=== PATIENT | male | born 1945 | race Caucasian/White ===

== ENCOUNTER 2020-09-07 12:55 | Emergency (ER) | payer MEDICARE, OTHER, SELFPAY ==
[2020-09-07 13:25] VITALS: BP 199/80; PULSE 58; RESP 16; TEMP 36.7; O2SAT 97; BMI 25.8
--- NOTE | 2020-09-07 13:51 | XR_ITS ---
WS: [id number] XR chest 1V portable [id number] REASON FOR EXAM: shortness of breath FINDINGS: Compared to the previous examination of 10/05/2019 interstitial densities in the lung bases appear so mewhat more prominent. This may be due to the difference in inspiratory effort. No other interval change is identified compared to the previous study. XR/XR chest 1V portable [id number] IMPRESSION: Equivocal findings in the lung bases as described above. Follow-up chest x-ray may be warranted.
[2020-09-07] MEDS: albuterol 8 gm MDI 2 PUFF INHALATION (14:17)
[2020-09-07 14:18] VITALS: PULSE 60; RESP 18; O2SAT 96
[2020-09-07 14:19] VITALS: PULSE 68
[2020-09-07 14:23] LABS: Basophils % 0.4 %; Eosinophils # 0.6 10^3/uL (0.0-0.8); Hematocrit 40.4 % (42.0-52.0); Hemoglobin 13.1 g/dL (11.7-16.6); Lymphocytes # 1.2 10^3/uL (0.8-4.8); Lymphocytes % 17.6 %; Mean Corpuscular HGB Conc 32.4 g/dL (30.0-36.0); Mean Corpuscular Hemoglobin 29.9 pg (28.0-34.0); Mean Corpuscular Volume 92.2 fL (80-94); Mean Platelet Volume 9.6 fL (7.4-10.4); Monocytes # 0.6 10^3/uL (0.2-0.9); Neutrophils # 4.45 10^3/uL (1.8-7.7); Neutrophils % 64.9 %; Nucleated Red Blood Cells % 0 %; Platelet Count 179 10^3/cmm (130-400); Red Blood Count 4.38 10^6/uL (4.1-5.3); Red Cell Distribution Width 12.7 % (12.1-15.1); White Blood Count 6.9 10^3/uL (4.0-10.0)
[2020-09-07 14:24] LABS: ABG PH Result 7.42 (7.35-7.45); Base Excess ABG 0.8 mmol/L (-2.0-2.0); Blood Gas Allen Test Pos; Blood Gas Operator Identificat CAK; Blood Gas Sample Site Radial, left; Blood Gas Sample Type Arterial; HCO3 ABG 25.3 mmol/L (22-26); Oxygen Device ROOM AIR; PO2 ABG 90.5 mmHg (80.0-100.0)
--- NOTE | 2020-09-07 14:29 | ED_ITS ---
HPI - SOB/Dyspnea General: Chief Complaint: Shortness of Breath/Dyspnea Stated Complaint: COPD Time Seen by Provider: 09/07/20 13:48 History of Present Illness: HPI Narrative: 75-year-old male presents emergency room complaining of chest pain for the last 2 days. He has been also having shortness of breath with this. He denies any fever sweats chills he has usual baseline cough from his COPD with no change in sputum production quantity or quality. Does have a known history of coronary artery disease. He does not have any radiation of pain to the neck or arms but into the back. He has not really taken anything for it. He denies any abdominal pain denies any dysuria urgency or frequency no flulike symptoms. He has not noticed anything that exacerbates or relieves it. MD elicited complaint: shortness of breath and chest pain Pertinent past history: COPD and other (CAD) Onset (ago): day(s) (2) Timing: constant Severity: moderate Exacerbating factors: nothing Relieving factors: nothing Associated symptoms: Reports chest pain (Radiating into the back); Deny abdominal pain, fever(s), nausea, orthopnea or vomiting Treatment prior to arrival: none Review of Systems Const: Denies: fever(s), chills, body aches, change in appetite, fatigue or malaise ENMT: Denies: throat pain, ear or mastoid pain, nasal discharge or nasal congestion Card: Reports: chest pain (Radiating into the back) and dyspnea on exertion; Denies: edema or orthopnea Resp: Denies: dyspnea, productive cough or non-productive cough GI: Denies: abdominal pain, nausea, vomiting, hematemesis, coffee ground emesis, diarrhea, constipation, bloating, hematochezia or melena : Denies: flank pain, dysuria, urinary frequency or urinary urgency Skin/Breast: Denies: rash or pruritus PFSH ED PFSH: Medical History (Updated 09/07/20 @ 14:36 by Joshua Chavarria DO) Coronary artery disease Surgical History (Updated 09/07/20 @ 14:36 by Joshua Chavarria DO) S/P PTCA (percutaneous transluminal coronary angioplasty) Physical Exam Const: COMMON NORMALS: no acute distress GENERAL APPEARANCE: cooperative and comfortable ORIENTATION/CONSCIOUSNESS: Yes awake, Yes oriented to person, Yes oriented to place and Yes oriented to time HENMT: COMMON NORMALS: normocephalic, atraumatic and hearing grossly normal bilaterally HEAD & SCALP: normocephalic and atraumatic Eye: COMMON NORMALS: Equal, round and reactive pupils present, EOMs intact bilaterally, conjunctivae normal and no scleral icterus CONJUNCTIVA: Yes conjunctivae normal PUPIL: Yes Equal, round and reactive pupils present Resp: AUSCULTATION: rhonchi and wheezes Cardio: COMMON NORMALS: regular rate and No murmurs present (Cardio) RATE: regular rate HEART SOUNDS: Murmur heart sound present GI: COMMON NORMALS: Soft to palpation and No hepatosplenomegaly present AUSCULTATION: Yes normoactive bowel sounds PALPATION: Yes Soft to palpation, No Tenderness to palpation present (GI), No Guarding due to palpation present (GI) and Yes No hepatosplenomegaly present Extremity: COMMON NORMALS: normal to inspection, capillary refill normal, no clubbing, cyanosis or edema, no calf tenderness and no pedal edema Neuro: SENSORIUM/ORIENTATION: Yes oriented to person, Yes oriented to place and Yes oriented to time Skin: COMMON NORMALS: no rashes or lesions noted GENERAL SKIN EXAM: no rashes or lesions noted Course Vital Signs: Vital signs: Vital Signs Temperature 98.1 F 09/07/20 13:25 Pulse Rate 68 09/07/20 14:19 Respiratory Rate 18 09/07/20 14:18 Blood Pressure 199/80 09/07/20 13:25 Pulse Oximetry 96 09/07/20 14:18 MDM - SOB/Dyspnea MDM Narrative: Medical decision making narrative: During course of physical exam patient became angry because we are doing an abdominal exam on him. Advised him that all patients come to the emergency room receive a full physical exam. He states he is here for his breathing on his abdomen and did not want to be further examined over seen and wanted to leave AMA just attempted to discourage him to allow us to do further evaluation to make sure he did not have a heart issue or just is concerning a dissecting aneurysm patient refuses to have any further evaluation and insisted on leaving. He was advised that he can return at any point we would happily reevaluate and complete the work-up. Lab Data: Labs: Lab Results 09/07/20 09/07/20 Range/Units 14:08 14:12 WBC 6.9 (4.0-10.0) 10^3/ uL RBC 4.38 (4.1-5.3) 10^6/u L Hgb 13.1 (11.7-16.6) g/dL Hct 40.4 L (42.0-52.0) % MCV 92.2 (80-94) fL MCH 29.9 (28.0-34.0) pg MCHC 32.4 (30.0-36.0) g/dL RDW 12.7 (12.1-15.1) % Plt Count 179 (130-400) 10^3/c mm MPV 9.6 (7.4-10.4) fL Neut % (Auto) 64.9 % Lymph % (Auto) 17.6 % [place] % (Auto) 8.0 % Eos % (Auto) 9.0 % Baso % (Auto) 0.4 % Neut # (Auto) 4.45 (1.8-7.7) 10^3/u L Lymph # (Auto) 1.2 (0.8-4.8) 10^3/u L [place] # (Auto) 0.6 (0.2-0.9) 10^3/u L Eos # (Auto) 0.6 (0.0-0.8) 10^3/u L Baso # (Auto) 0.0 (0.0-0.1) 10^3/u L Nucleated RBC % (a uto) 0 % Nucleated RBCs # 0.0 /100WBC Specimen Type Arterial Sample Site Radial, left ABG pH 7.42 (7.35-7.45) ABG pCO2 39.0 (35-45) mmHg ABG pO2 90.5 (80.0-100.0) mmH g ABG HCO3 25.3 (22-26) mmol/L ABG Base Excess 0.8 (-2.0-2.0) mmol/ L Pio Test Pos Hematocrit 43.0 (42-52) % O2 Delivery Device Room air FiO2 0.0 % 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 ID Cak Discharge Plan Discharge Patient Disposition: Left Against Medical Advice Clinical Impression: Dyspnea, Back pain Condition: Stable Prescriptions: No Action gabapentin 600 mg tablet 1,200 mg PO BEDTIME RF: 0 paroxetine HCl 10 mg tablet 10 mg PO DAILY RF: 0 carvedilol 12.5 mg tablet 12.5 mg PO BID RF: 0 tizanidine 4 mg tablet 4 mg PO BEDTIME RF: 0 clopidogrel 75 mg tablet 75 mg PO DAILY RF: 0 simvastatin 20 mg tablet 20 mg PO DAILY RF: 0 iron 325 mg (65 mg iron) Tablet 325 mg PO DAILY RF: 0 omeprazole 20 mg capsule,delayed release(DR/EC) 20 mg PO DAILY RF: 0 magnesium 250 mg Tablet 500 mg PO DAILY RF: 0 aspirin 81 mg Tablet 81 mg PO DAILY RF: 0 Ventolin HFA 90 mcg/actuation HFA aerosol inhaler 2 inh INHALATION Q6H PRN (Reason: Shortness Of Breath) RF: 0 Myrbetriq 50 mg tablet extended release 24 hr 50 mg PO DAILY RF: 0 Coding Level of Care Code ED [employer] Guid[employer] Counselor for [place] Sanderson
[2020-09-07 14:35] VITALS: BP 212/99; PULSE 60; O2SAT 98
[2020-09-07 14:43] LABS: Fibrinogen 292 mg/dL (174-498)
[2020-09-07 14:51] LABS: Alanine Aminotransferase 18 U/L (0-41); Albumin Level 4.7 g/dL (3.5-5.2); Alkaline Phosphatase 87 IU/L (40-130); Aspartate Amino Transferase 19 U/L (0-40); Blood Urea Nitrogen 18 mg/dL (8-23); C Reactive Protein 2.9 mg/L (0.0-4.9); Calcium 9.6 mg/dL (8.5-10.5); Carbon Dioxide 27 mmol/L (22-29); Chloride 105 mmol/L (98-107); Glucose 102 mg/dL (65-115); Osmolality Calculated 296 mOsm/kg (285-295); Sodium 142 mmol/L (136-145); Total Bilirubin 0.3 mg/dL (0.15-1.2); Total Protein 6.7 g/dL (6.6-8.7)
[2020-09-07 14:52] LABS: Lactic Sepsis W/Reflex 0.8 mmol/L (0.5-2.2)
[2020-09-07 14:54] LABS: Anion Gap 14.9 (5-19); Potassium 4.9 mmol/L (3.5-5.1)
[2020-09-07 14:58] LABS: SARS Covid-2 Antigen Negative (Negative)
== END 2020-09-07 14:30 | disposition left against medical advice (07) ==
PROVIDERS: Emergency Provider Family Medicine
DX: R06.00 Dyspnea, unspecified (principal); M54.9 Dorsalgia, unspecified; Z53.21 Procedure and treatment not carried out due to patient leaving prior to being seen by health care provider; Z79.02 Long term (current) use of antithrombotics/antiplatelets; Z79.82 Long term (current) use of aspirin; I25.10 Atherosclerotic heart disease of native coronary artery without angina pectoris
CPT/HCPCS: 12345; 36600; 71045; 80053; 82803; 83605; 85025; 85378; 85384; 86140; 87426; 94640; 99282; 99283; J3535

== ENCOUNTER 2020-09-12 18:32 | Emergency (ER) | payer MEDICARE, OTHER, SELFPAY ==
[2020-09-12] VITALS (9 sets, daily range): BP systolic 159–229; BP diastolic 53–88; PULSE 56–92; RESP 14–23; TEMP 36.3; O2SAT 55–99; BMI 28.2
--- NOTE | 2020-09-12 19:06 | XRR_ITS ---
PROCEDURE INFORMATION: Exam: XR Chest, 1 View Exam date and time: 09/12/2020 7:11 PM Age: 75 years old Clinical indication: Shortness of breath; Additional info: SOB TECHNIQUE: Imaging protocol: XR of the chest Views: 1 view. COMPARISON: CR XR chest 1V portable [id number] 09/07/2020 1:55 PM FINDINGS: Lungs: COPD/chronic bronchitis. No visible active interstitial or alveolar airspace disease. Evidence of antecedent granulomatous disease. Pleural space: Unremarkable. No pleural effusion. No pneumothorax. Heart/Mediastinum: Unremarkable. No cardiomegaly. Bones/joints: Unremarkable for age. XR/XR chest 1V portable [id number] IMPRESSION: Nonacute.
--- NOTE | 2020-09-12 19:08 | ECG_ITS ---
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1945 Requested By: Estevan Bingham I Order Number: [id number] Reading MD: NAM SHEFFIELD Measurements Intervals [place] Rate: 57 P: 83 DC: 173 QRS: 78 QRSD: 90 T: 54 QT: 401 QTc: 390 Interpretive Statements SINUS BRADYCARDIA NONSPECIFIC ST & T-WAVE ABNORMALITY Compared to ECG 10/05/2019 08:29:20 T-wave abnormality now present Sinus rhythm no longer present Electronically Signed On 09-13-2020 19:15:25 SALES AND MERCHANDISING ASSOCIATE by NAM SHEFFIELD [id number]
[2020-09-12 19:28] LABS: Basophils # 0.1 10^3/uL (0.0-0.1); Basophils % 0.6 %; Eosinophils # 0.7 10^3/uL (0.0-0.8); Eosinophils % 8.1 %; Hematocrit 42.9 % (42.0-52.0); Hemoglobin 13.8 g/dL (11.7-16.6); Lymphocytes # 1.6 10^3/uL (0.8-4.8); Lymphocytes % 18.3 %; Mean Corpuscular HGB Conc 32.2 g/dL (30.0-36.0); Mean Corpuscular Hemoglobin 29.7 pg (28.0-34.0); Mean Corpuscular Volume 92.5 fL (80-94); Mean Platelet Volume 9.4 fL (7.4-10.4); Monocytes # 0.6 10^3/uL (0.2-0.9); Monocytes % 7.1 %; Neutrophils # 5.83 10^3/uL (1.8-7.7); Neutrophils % 65.7 %; Nucleated Red Blood Cells % 0 %; Platelet Count 183 10^3/cmm (130-400); Red Blood Count 4.64 10^6/uL (4.1-5.3); Red Cell Distribution Width 12.8 % (12.1-15.1); White Blood Count 8.9 10^3/uL (4.0-10.0)
[2020-09-12 19:49] LABS: INR 0.92 (0.8-1.2)
[2020-09-12 19:51] LABS: D Dimer 0.57 ug/mIFEU (0-0.59)
[2020-09-12 19:55] LABS: Lactic Sepsis W/Reflex 1.2 mmol/L (0.5-2.2)
[2020-09-12 19:59] LABS: Troponin(5th) Baseline 18 ng/L (0-15)
[2020-09-12 20:02] LABS: Influenza A by IFA Negative (Negative); Influenza B by IFA Negative (Negative); SARS Covid-2 Antigen Negative (Negative)
[2020-09-12 20:06] LABS: Alanine Aminotransferase 17 U/L (0-41); Albumin Level 4.8 g/dL (3.5-5.2); Alkaline Phosphatase 107 IU/L (40-130); Anion Gap 14.2 (5-19); Aspartate Amino Transferase 18 U/L (0-40); Blood Urea Nitrogen 22 mg/dL (8-23); C Reactive Protein 2.9 mg/L (0.0-4.9); Calcium 9.2 mg/dL (8.5-10.5); Carbon Dioxide 26 mmol/L (22-29); Chloride 103 mmol/L (98-107); Globulin 1.9 g/dL (1.3-4.6); Glucose 153 mg/dL (65-115); NT Pro B Type Natriuretic Pept 164 pg/mL (0-125); Osmolality Calculated 294 mOsm/kg (285-295); Potassium 4.2 mmol/L (3.5-5.1); Sodium 139 mmol/L (136-145); Total Bilirubin 0.2 mg/dL (0.15-1.2); Total Protein 6.7 g/dL (6.6-8.7)
[2020-09-12] MEDS: ipratropium-albuterol 3 mL Neb INHALATION (20:46)
--- NOTE | 2020-09-12 21:08 | ECG_ITS ---
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1945 Requested By: Estevan Bingham I Order Number: [id number] Reading MD: NAM SHEFFIELD Measurements Intervals [place] Rate: 54 P: 79 CT: 171 QRS: 74 QRSD: 89 T: 62 QT: 416 QTc: 396 Interpretive Statements SINUS BRADYCARDIA MINIMAL ST DEPRESSION [0.025+ mV ST DEPRESSION] Compared to ECG 09/12/2020 19:17:15 ST (T wave) deviation now present T-wave abnormality no longer present Electronically Signed On 09-13-2020 19:16:40 COMPUTER COMPOSITOR by NAM SHEFFIELD [id number]
--- NOTE | 2020-09-12 21:09 | ED_ITS ---
HPI - SOB/Dyspnea General: Chief Complaint: Shortness of Breath/Dyspnea Stated Complaint: COPD, couphing, chest pain, sneezing Time Seen by Provider: 09/12/20 18:46 Source: patient and family () Mode of arrival: ambulatory Limitations: no limitations History of Present Illness: HPI Narrative: Patient is a 75-year-old male with a history of hypertension, diabetes, coronary artery disease, peripheral artery disease, COPD who quit smoking about 3 months ago presents to the emergency department with a 1 week history of cough and shortness of breath. He states that he feels like he cannot get enough air into his lungs. He was seen here a week ago for the same thing. He has not improved and has progressively worsened. He says when he uses his beta agonist treatments he gets relief but only for short time. MD elicited complaint: shortness of breath and cough Pertinent past history: COPD, congestive heart failure and diabetes Onset (ago): week(s) (1) Timing: constant and progressively worsening Severity: severe Exacerbating factors: exertion Relieving factors: bronchodilators (But only for short time) Known history of: COPD, congestive heart failure and diabetes Associated symptoms: Reports chest congestion and cough; Deny abdominal pain, chest pain, diaphoresis, dizziness, extremity pain, fever(s), hemoptysis, lightheadedness, myalgias, nausea, orthopnea, palpitations, paresthesias, polydipsia, polyuria, rash, sense of impending doom, syncope or vomiting Treatment prior to arrival: bronchodilator Review of Systems General: Reports: 10 or more systems reviewed and unremarkable except in HPI and below Const: Denies: fever(s) or diaphoresis Eyes: Denies: change in vision or blurry vision ENMT: Denies: throat pain, enlarged tonsils, odynophagia, hoarseness, mouth pain or swelling of lips/tongue Card: Denies: chest pain, palpitations, lightheadedness, syncope or orthopnea Resp: Reports: chest congestion; Denies: hemoptysis GI: Denies: abdominal pain, nausea or vomiting : Denies: flank pain, dysuria, urinary frequency, urinary urgency or urinary hesitancy Musc: Denies: extremity pain Skin/Breast: Denies: rash, pruritus or erythema Neuro: Denies: dizziness Endo: Denies: polyuria or polydipsia PFSH ED PFSH: Medical History (Updated 09/12/20 @ 22:09 by Estevan Bingham MD, [facility] – [place]) Coronary artery disease Surgical History (Updated 09/07/20 @ 14:36 by Joshua Chavarrai DO) S/P PTCA (percutaneous transluminal coronary angioplasty) Physical Exam Const: COMMON NORMALS: no acute distress, average body habitus, patient oriented x3, no limitations, healthy appearing, alert and well nourished HENMT: COMMON NORMALS: normocephalic, atraumatic and moist oral mucous membranes HEAD & SCALP: normocephalic and atraumatic Neck/C-Spine: COMMON NORMALS: full ROM, supple, no meningeal signs, no JVD and No carotid bruits Resp: COMMON NORMALS: normal respiratory effort, No retractions, No use of accessory muscles and percussion normal AUSCULTATION: wheezes expiratory wheezes and throughout and diminished lung sounds PERCUSSION: percussion normal Cardio: COMMON NORMALS: no JVD, regular rate, regular rhythm, S1 normal heart sound present, S2 normal heart sound present, No gallops present (Cardio), No clicks present (Cardio), No murmurs present (Cardio), No rub (Cardio) and Peripheral pulses 2+ throughout RATE: regular rate RHYTHM: regular rhythm HEART SOUNDS: S1 normal heart sound present and S2 normal heart sound present PERIPHERAL PULSES: Peripheral pulses 2+ throughout GI: COMMON NORMALS: Normal to inspection, nondistended, normoactive bowel sounds present, Soft to palpation, non-tender, No hepatosplenomegaly present, no masses and no bruits PALPATION: Yes Soft to palpation and Yes No hepatosplen omegaly present Extremity: COMMON NORMALS: normal to inspection, full ROM, capillary refill normal, no calf tenderness and no pedal edema Neuro: COMMON NORMALS: patient oriented x3 SENSORIUM/ORIENTATION: Yes alert MENINGEAL SIGNS: Yes no meningeal signs Skin: COMMON NORMALS: no rashes or lesions noted, no wounds, turgor normal, no jaundice, no petechiae and no mottling GENERAL SKIN EXAM: no rashes or lesions noted and turgor normal Course Reevaluation(s): Reevaluation #1: Discussed his initial troponin, other labs and imaging findings with him. Baseline troponin mildly elevated, however nothi ng else is concerning. I believe he is likely having a COPD exacerbation. He still appears to be short of breath and still has some wheezing that is significant. He states that the steroid has helped more than the DuoNeb. I advised that he probably will benefit from at least an overnight stay with pulmonary toilet and steroid however the patient strongly declined and said he would not be admitted to the hospital and wants to go home. He would wait for a 2-hour troponin and would like some steroids, however he will not be admitted. I discussed obtaining a continuous breathing treatment and he is okay with that. Time: 21:09 Reevaluation #2: Following his continuous breathing treatments helped and a little bit more relief. Once again I discussed keeping him overnight for pulmonary toilet and steroids, however he refused hospital admission. I will therefore discharge him home with a prescription for oral prednisone, azithromycin, and he is to use beta agonist treatments every 4 hours for the next 2 days and then as needed thereafter. He voiced understanding and is in agreement with the plan. Vital Signs: Vital signs: Vital Signs Temperature 97.3 F L 09/12/20 18:43 Pulse Rate 60 09/12/20 22:21 Respiratory Rate 14 09/12/20 22:21 Blood Pressure 159/77 09/12/20 22:21 Pulse Oximetry 99 09/12/20 22:21 MDM - SOB/Dyspnea MDM Narrative: Medical decision making narrative: 75-year-old male who presents to the emergency department and evaluation has consistent with a COPD exacerbation. The patient would have benefited from hospital stay due to significant wheezing none diminished air movements. He however declined and wanted to be discharged home. He is strongly advised to return for any concerns especially if he does not get better or if he gets worse. Medical Records: Attestation: I reviewed the patient's medical records. Lab Data: Attestation: I reviewed the patient's lab results. Labs: Lab Results 09/12/20 09/12/20 09/12/20 Range/Units 19:17 19:17 19:17 WBC 8.9 (4.0-10.0) 10^3/ uL RBC 4.64 (4.1-5.3) 10^6/u L Hgb 13.8 (11.7-16.6) g/dL Hct 42.9 (42.0-52.0) % MCV 92.5 (80-94) fL MCH 29.7 (28.0-34.0) pg MCHC 32.2 (30.0-36.0) g/dL RDW 12.8 (12.1-15.1) % Plt Count 183 (130-400) 10^3/c mm MPV 9.4 (7.4-10.4) fL Neut % (Auto) 65.7 % Lymph % (Auto) 18.3 % [place] % (Auto) 7.1 % Eos % (Auto) 8.1 % Baso % (Auto) 0.6 % Neut # (Auto) 5.83 (1.8-7.7) 10^3/u L Lymph # (Auto) 1.6 (0.8-4.8) 10^3/u L [place] # (Auto) 0.6 (0.2-0.9) 10^3/u L Eos # (Auto) 0.7 (0.0-0.8) 10^3/u L Baso # (Auto) 0.1 (0.0-0.1) 10^3/u L Nucleated RBC % (a uto) 0 % Nucleated RBCs # 0.0 /100WBC PT 12.60 (12.1-14.9) SECO NDS INR 0.92 (0.8-1.2) D-Dimer 0.57 (0-0.59) ug/mIFE U Sodium 139 (136-145) mmol/L Potassium 4.2 (3.5-5.1) mmol/L Chloride 103 (98-107) mmol/L Carbon Dioxide 26 (22-29) mmol/L Anion Gap 14.2 (5-19) BUN 22 (8-23) mg/dL Creatinine 1.2 (0.7-1.2) mg/dL GFR Calculation Not Reportable Glucose 153 H (65-115) mg/dL Calculated Osmolal ity 294 (285-295) mOsm/k g Lactic Acid (0.5-2.2) mmol/L Calcium 9.2 (8.5-10.5) mg/dL Total Bilirubin 0.2 (0.15-1.2) mg/dL AST 18 (0-40) U/L ALT 17 (0-41) U/L Alkaline Phosphata se 107 (40-130) IU/L Troponin T Baselin e (0-15) ng/L Troponin T 120 Min citizen [place] (0-15) ng/L Delta Troponin T (0-10) ABS# C-Reactive Protein 2.9 (0.0-4.9) mg/L NT-Pro-B Natriuret Pep 164 H (0-125) pg/mL Total Protein 6.7 (6.6-8.7) g/dL Albumin 4.8 (3.5-5.2) g/dL Globulin 1.9 (1.3-4.6) g/dL Influenza Type A A g (Negative) Influenza Type B A g (Negative) SARS-CoV-2 Ag (Rap id) (Negative) 09/12/20 09/12/20 09/12/20 Range/Units 19:17 19:17 19:17 WBC (4.0-10.0) 10^3/ uL RBC (4.1-5.3) 10^6/u L Hgb (11.7-16.6) g/dL Hct (42.0-52.0) % MCV (80-94) fL MCH (28.0-34.0) pg MCHC (30.0-36.0) g/dL RDW (12.1-15.1) % Plt Count (130-400) 10^3/c mm MPV (7.4-10.4) fL Neut % (Auto) % Lymph % (Auto) % [place] % (Auto) % Eos % (Auto) % Baso % (Auto) % Neut # (Auto) (1.8-7.7) 10^3/u L Lymph # (Auto) (0.8-4.8) 10^3/u L [place] # (Auto) (0.2-0.9) 10^3/u L Eos # (Auto) (0.0-0.8) 10^3/u L Baso # (Auto) (0.0-0.1) 10^3/u L Nucleated RBC % (a uto) % Nucleated RBCs # /100WBC PT (12.1-14.9) SECO NDS INR (0.8-1.2) D-Dimer (0-0.59) ug/mIFE U Sodium (136-145) mmol/L Potassium (3.5-5.1) mmol/L Chloride (98-107) mmol/L Carbon Dioxide (22-29) mmol/L Anion Gap (5-19) BUN (8-23) mg/dL Creatinine (0.7-1.2) mg/dL GFR Calculation Glucose (65-115) mg/dL Calculated Osmolal ity (285-295) mOsm/k g Lactic Acid (0.5-2.2) mmol/L Calcium (8.5-10.5) mg/dL Total Bilirubin (0.15-1.2) mg/dL AST (0-40) U/L ALT (0-41) U/L Alkaline Phosphata se (40-130) IU/L Troponin T Baselin e 18 H (0-15) ng/L Troponin T 120 Min citizen [place] (0-15) ng/L Delta Troponin T (0-10) ABS# C-Reactive Protein (0.0-4.9) mg/L NT-Pro-B Natriuret Pep (0-125) pg/mL Total Protein (6.6-8.7) g/dL Albumin (3.5-5.2) g/dL Globulin (1.3-4.6) g/dL Influenza Type A A g Negative (Negative) Influenza Type B A g Negative (Negative) SARS-CoV-2 Ag (Rap id) Negative (Negative) 09/12/20 09/12/20 Range/Units 19:32 21:10 WBC (4.0-10.0) 10^3/ uL RBC (4.1-5.3) 10^6/u L Hgb (11.7-16.6) g/dL Hct (42.0-52.0) % MCV (80-94) fL MCH (28.0-34.0) pg MCHC (30.0-36.0) g/dL RDW (12.1-15.1) % Plt Count (130-400) 10^3/c mm MPV (7.4-10.4) fL Neut % (Auto) % Lymph % (Auto) % [place] % (Auto) % Eos % (Auto) % Baso % (Auto) % Neut # (Auto) (1.8-7.7) 10^3/u L Lymph # (Auto) (0.8-4.8) 10^3/u L [place] # (Auto) (0.2-0.9) 10^3/u L Eos # (Auto) (0.0-0.8) 10^3/u L Baso # (Auto) (0.0-0.1) 10^3/u L Nucleated RBC % (a uto) % Nucleated RBCs # /100WBC PT (12.1-14.9) SECO NDS INR (0.8-1.2) D-Dimer (0-0.59) ug/mIFE U Sodium (136-145) mmol/L Potassium (3.5-5.1) mmol/L Chloride (98-107) mmol/L Carbon Dioxide (22-29) mmol/L Anion Gap (5-19) BUN (8-23) mg/dL Creatinine (0.7-1.2) mg/dL GFR Calculation Glucose (65-115) mg/dL Calculated Osmolal ity (285-295) mOsm/k g Lactic Acid 1.2 (0.5-2.2) mmol/L Calcium (8.5-10.5) mg/dL Total Bilirubin (0.15-1.2) mg/dL AST (0-40) U/L ALT (0-41) U/L Alkaline Phosphata se (40-130) IU/L Troponin T Baselin e (0-15) ng/L Troponin T 120 Min citizen [place] 17.83 H (0-15) ng/L Delta Troponin T -0.17 L (0-10) ABS# C-Reactive Protein (0.0-4.9) mg/L NT-Pro-B Natriuret Pep (0-125) pg/mL Total Protein (6.6-8.7) g/dL Albumin (3.5-5.2) g/dL Globulin (1.3-4.6) g/dL Influenza Type A A g (Negative) Influenza Type B A g (Negative) SARS-CoV-2 Ag (Rap id) (Negative) Imaging Data^: CXR: Attestation: I personally reviewed and interpreted this imaging study as follows: Radiologist's impression: [address] [address] XRay Report Signed Patient: Luis Alberto Torres #: [id number] : 6Acct#:[id number] Age/Sex: 75 / MADM Date: 09/12/20 Loc: ERRoom/Bed: Attending Dr: Ordering Provider/Ordering MD: Estevan Bingham MD, [facility] – [place] Date of Service: 09/12/20 Procedure(s): XR chest 1V portable [id number] Accession Number(s): [id number] Report Number: [id number] PROCEDURE INFORMATION: Exam: XR Chest, 1 View Exam date and time: 09/12/2020 7:11 PM Age: 75 years old Clinical indication: Shortness of breath; Additional info: SOB TECHNIQUE: Imaging protocol: XR of the chest Views: 1 view. COMPARISON: CR XR chest 1V portable [id number] 09/07/2020 1:55 PM FINDINGS: Lungs: COPD/chronic bronchitis. No visible active interstitial or alveolar airspace disease. Evidence of antecedent granulomatous disease. Pleural space: Unremarkable. No pleural effusion. No pneumothorax. Heart/Mediastinum: Unremarkable. No cardiomegaly. Bones/joints: Unremarkable for age. XR/XR chest 1V portable [id number] IMPRESSION: Nonacute. Dictated By:Jasvir Nuñez Signed By:Millie Nuñez Date/Time:09/12/202002 DD/ 01 EKG Data^: EKG 1: Attestation: I personally reviewed and interpreted this EKG as follows: EKG Interpretation Date: 09/12/20 EKG interpretation time: 19:17 Prior EKG tracings: not available for review Interpretation: Sinus bradycardia. Heart rate [address] changes. EKG 2: Attestation: I personally reviewed and interpreted this EKG as follows: EKG Interpretation Date: 09/12/20 EKG interpretation time: 21:15 Prior EKG tracings: available for review Interpretation: Sinus bradycardia. Heart rate [address] changes. No significant change from earlier today. Discharge Plan Discharge Patient Disposition: Home Clinical Impression: Acute exacerbation of chronic obstructive airways disease Condition: Stable Prescriptions: New prednisone 20 mg tablet 60 mg PO DAILY Qty: 21 RF: 0 azithromycin 250 mg tablet See Rx Instructions .ROUTE .COMPLEX Qty: 6 RF: 0 Continued gabapentin 600 mg tablet 1,200 mg PO BEDTIME RF: 0 paroxetine HCl 10 mg tablet 10 mg PO DAILY RF: 0 carvedilol 12.5 mg tablet 12.5 mg PO BID RF: 0 tizanidine 4 mg tablet 4 mg PO BEDTIME RF: 0 clopidogrel 75 mg tablet 75 mg PO DAILY RF: 0 simvastatin 20 mg tablet 20 mg PO DAILY RF: 0 iron 325 mg (65 mg iron) Tablet 325 mg PO DAILY RF: 0 omeprazole 20 mg capsule,delayed release(DR/EC) 20 mg PO DAILY RF: 0 magnesium 250 mg Tablet 500 mg PO DAILY RF: 0 aspirin 81 mg Tablet 81 mg PO DAILY RF: 0 Ventolin HFA 90 mcg/actuation HFA aerosol inhaler 2 inh INHALATION Q6H PRN (Reason: Shortness Of Breath) RF: 0 Myrbetriq 50 mg tablet extended release 24 hr 50 mg PO DAILY RF: 0 Discharge Orders: Discharge Order (Routine); Ordered 09/12/20 Ordered By: Estevan Bingham Discharge Diet: Usual diet Discharge Activity: Increase activity as tolerated Patient Instructions: Chronic Obstructive Pulmonary Disease (ED) Activity Restrictions/Additional Instructions: Return for any new or worsening symptoms. Follow up with your primary care provider within 2 days. Use your breathing treatment every 4 hours while awake for the next 2 days, then as needed thereafter. Take the steroid and antibiotic as prescribed. Coding Level of Care Code ED Rivet Flunky for Washington Sanderson
[2020-09-12 21:46] LABS: Troponin 5 2HR 17.83 ng/L (0-15)
[2020-09-12 21:47] LABS: Troponin 5 2HR Delta -0.17 ABS# (0-10)
[2020-09-12 23:26] LABS: Procalcitonin 0.03 ng/mL (0-0.5)
== END 2020-09-12 22:22 | disposition home or self-care (01) ==
PROVIDERS: Emergency Provider Family Medicine
DX: J44.1 Chronic obstructive pulmonary disease with (acute) exacerbation (principal); Z79.82 Long term (current) use of aspirin; Z79.02 Long term (current) use of antithrombotics/antiplatelets; I25.10 Atherosclerotic heart disease of native coronary artery without angina pectoris
CPT/HCPCS: 12345; 71045; 80053; 83605; 83880; 84145; 84484; 85025; 85378; 85610; 86140; 87426; 87804; 93005; 94640; 96374; 99282; 99284; J2930; J7611

== ENCOUNTER → 2021-05-06 09:47 | Outpatient (BNVA) | payer MEDICARE, OTHER, SELFPAY | PROVIDERS: PCP Internal Medicine; Visit Provider Internal Medicine Pulmonary Disease | DX: Z20.822 Contact with and (suspected) exposure to COVID-19 (principal); J44.9 Chronic obstructive pulmonary disease, unspecified | CPT/HCPCS: 87635 ==

== ENCOUNTER 2021-05-10 07:56 | Outpatient (CLI) | payer MEDICARE, OTHER, SELFPAY ==
--- NOTE | 2021-05-10 12:32 | PFTS_ITS ---
Date of Study:05/10/21 Date of Dictation: MECHANICS: Forced vital capacity (FVC) is reduced. Forced expiratory volume in one second (FEV1) is reduced. FEV1/FVC is reduced. FLOW VOLUME LOOP: Reduced flow at all lung volumes with significant scooping. LUNG VOLUMES: Not measured DIFFUSING CAPACITY FOR CARBON MONOXIDE: Severely reduced. INTERPRETATION: The postbronchodilator spirometry is consistent with severe airflow obstruction. There is no significant postbronchodilator response. Component of restriction cannot be ruled out in the absence of lung volume measurement. Gas exchange (DLCO) is severely reduced. MTDD
== END 2021-05-10 07:57 | disposition home or self-care (01) ==
LOC: RT 07:59
PROVIDERS: PCP Internal Medicine; Visit Provider Internal Medicine Pulmonary Disease
DX: J43.2 Centrilobular emphysema (principal)
CPT/HCPCS: 94060; 94729; J7611

== ENCOUNTER → 2021-06-15 08:50 | Outpatient (BNVA) | payer MEDICARE, OTHER, SELFPAY | PROVIDERS: PCP Internal Medicine; Visit Provider Orthopaedic Surgery | DX: M54.9 Dorsalgia, unspecified (principal) | CPT/HCPCS: 72110 ==

== ENCOUNTER 2021-06-24 20:32 | Emergency (ER) | payer MEDICARE, OTHER, SELFPAY ==
--- NOTE | 2021-06-24 20:38 | XRR_ITS ---
PROCEDURE INFORMATION: Exam: XR Chest Exam date and time: 06/24/2021 8:38 PM Age: 76 years old Clinical indication: Sternal or substernal pain; Prior surgery; Surgery type: Stents; Patient HX: Cp x today TECHNIQUE: Imaging protocol: XR of the chest. Views: 1 view. COMPARISON: CR XR chest 1V portable [id number] 09/12/2020 7:34 PM FINDINGS: Lungs: Unremarkable. No consolidation. Pleural spaces: Unremarkable. No pleural effusion. No pneumothorax. Heart/Mediastinum: Unremarkable. No cardiomegaly. Bones/joints: Unremarkable. XR/XR chest 1V portable [id number] IMPRESSION: No acute findings.
--- NOTE | 2021-06-24 20:39 | ECG_ITS ---
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 Measurements Intervals [place] Rate: 69 P: 70 VT: 168 QRS: 59 QRSD: 88 T: 63 QT: 365 QTc: 391 Interpretive Statements SINUS RHYTHM MODERATE ST DEPRESSION [0.05+ mV ST DEPRESSION] Compared to ECG 09/12/2020 21:15:51 Sinus bradycardia no longer present ST (T wave) deviation still present Electronically Signed On 06-25-2021 20:34:04 CDT by Matt Verma M.D. [id number] f
[2021-06-24 20:41] VITALS: BP 197/75; PULSE 73; RESP 18; TEMP 36.9; O2SAT 100; BMI 25.0
--- NOTE | 2021-06-24 20:41 | ED_ITS ---
HPI - Chest Pain General: Chief Complaint: ER Hold Stated Complaint: Chest Pains Time Seen by Provider: 06/24/21 20:38 Source: patient Mode of arrival: ambulatory Limitations: no limitations History of Present Illness: HPI narrative: 76-year-old male states that roughly 2 hours ago he started having chest pain. States is a pressure type pain center of his chest at its worst was an 8 out of 10 lasted roughly 1 hour. He denies any nausea or diaphoresis with the pain. He states that the pain is since resolved and is currently pain-free. Denies any worsening improving facto rs. RIVERA complaint: chest pain Associated symptoms: Deny abdominal pain, dyspnea, fever(s), nausea or vomiting Review of Systems Const: Denies: fever(s), chills, body aches or change in appetite Eyes: Denies: blurry vision or eye discomfort ENMT: Denies: throat pain or dental pain Card: Reports: chest pain Resp: Denies: dyspnea GI: Denies: abdominal pain, nausea, vomiting or diarrhea : Denies: dysuria Musc: Denies: neck pain or back pain Skin/Breast: Denies: rash Neuro: Denies: headache(s) Psych: Denies: depression Didier/Lymph: Denies: easy bruising All/Imm: Denies: urticaria PFSH ED PFSH: Medical History Coronary artery disease Lung nodules Surgical History S/P PTCA (percutaneous transluminal coronary angioplasty) Family History Brother Heart attack CAD (coronary artery disease) Chronic kidney disease (CKD) Stroke Father CAD (coronary artery disease) Stroke Sister Stroke Mother Stroke Other Heart disease Denies family history of Diabetes Clotting disorder Dementia Suicide Anesthesia complication Bleeding disorder Lung disease Cancer Social History Smoking and tobacco status: former smoker Second hand smoke exposure: Yes Smoking risk assessment/counseling performed?: Yes Alcohol intake: current Alcohol intake frequency: holidays/special occasions only Alcohol type: beer Counseling given: No Counseling given: Yes Lives independently: Yes Household members: spouse Marital status: Current occupational status: retired History of recent travel: No Current gender identity: Male Physical Exam Const: COMMON NORMALS: no acute distress, patient oriented x3 and healthy appearing HENMT: COMMON NORMALS: normocephalic and atraumatic HEAD & SCALP: normocephalic and atraumatic Eye: COMMON NORMALS: Equal, round and reactive pupils present and EOMs intact bilaterally PUPIL: Yes Equal, round and reactive pupils present Neck/C-Spine: COMMON NORMALS: full ROM and supple Chest: COMMONS NORMALS: normal inspection of the chest and normal palpation of entire chest wall Resp: COMMON NORMALS: normal respiratory effort, No retractions, No use of accessory muscles and clear to auscultation bilaterally AUSCULTATION: clear to auscultation bilaterally Cardio: COMMON NORMALS: regular rate, regular rhythm and No murmurs present (Cardio) RATE: regular rate RHYTHM: regular rhythm GI: COMMON NORMALS: Normal to inspection, nondistended, normoactive bowel sounds present, Soft to palpation, non-tender and no masses PALPATION: Yes Soft to palpation Extremity: COMMON NORMALS: normal to inspection and full ROM Neuro: COMMON NORMALS: patient oriented x3, moves all extremities and no focal motor deficits Psych: COMMON NORMALS: mental status grossly normal, Normal thought process present and cooperative THOUGHT PROCESS: Normal thought process present Skin: COMMON NORMALS: no rashes or lesions noted and no wounds GENERAL SKIN EXAM: no rashes or lesions noted Course Vital Signs: Vital signs: Vital Signs Temperature 98.4 F 06/24/21 20:41 Pulse Rate 64 06/24/21 22:00 Respiratory Rate 18 06/24/21 22:30 Blood Pressure 154/78 06/24/21 22:30 Pulse Oximetry 99 06/24/21 22:30 MDM - Chest Pain MDM Narrative: Medical decision making narrative: Patient presents here with chest pain has been resolved since he has been here. His initial repeat troponins are normal. He does have anemia likely chronic iron deficiency anemia. We will admit him for transfusion. Lab Data: Labs: Lab Results 06/24/21 06/24/21 06/24/21 Range/Units 20:30 20:30 20:30 WBC 7.1 (4.0-10.0) 10^3/ uL RBC 3.57 L (4.1-5.3) 10^6/u L Hgb 6.3 L* (11.7-16.6) g/dL Hct 23.9 L (42.0-52.0) % MCV 66.9 L (80-94) fl MCH 17.6 L (28.0-34.0) pg MCHC 26.4 L (30.0-36.0) g/dL RDW 17.6 H (12.1-15.1) % Plt Count 208 (130-400) 10^3/c mm MPV 9.9 (7.4-10.4) fL Neut % (Auto) 65.3 % Lymph % (Auto) 17.8 % [place] % (Auto) 8.8 % Eos % (Auto) 7.4 % Baso % (Auto) 0.6 % Neut # (Auto) 4.66 (1.8-7.7) 10^3/u L Lymph # (Auto) 1.3 (0.8-4.8) 10^3/u L [place] # (Auto) 0.6 (0.2-0.9) 10^3/u L Eos # (Auto) 0.5 (0.0-0.8) 10^3/u L Baso # (Auto) 0.0 (0.0-0.1) 10^3/u L Nucleated RBC % (a uto) 0 % Nucleated RBCs # 0.0 /100WBC Sodium 134 L (136-145) mmol/L Potassium 4.3 (3.5-5.1) mmol/L Chloride 98 (98-107) mmol/L Carbon Dioxide 23 (22-29) mmol/L Anion Gap 17.3 (5-19) BUN 13 (8-23) mg/dL Creatinine 1.2 (0.7-1.2) mg/dL GFR Calculation Not Reportable Glucose 172 H (65-115) mg/dL Calculated Osmolal ity 282 L (285-295) mOsm/k g Calcium 8.6 (8.5-10.5) mg/dL Iron (59-158) ug/dL TIBC mcg/dl % Saturation (20-50) % Unsat Iron Binding (112-347) ug/dL Total Bilirubin 0.2 (0.15-1.2) mg/dL AST 13 (0-40) U/L ALT 11 (0-41) U/L Alkaline Phosphata se 92 (40-130) IU/L Troponin T Baselin e 21 H (0-15) ng/L Troponin T 120 Min [place] (0-15) ng/L Delta Troponin T (0-10) ABS# Total Protein 7.0 (6.6-8.7) g/dL Albumin 4.6 (3.5-5.2) g/dL Globulin 2.4 (1.3-4.6) g/dL 06/24/21 06/24/21 Range/Units 22:20 22:20 WBC (4.0-10.0) 10^3/ uL RBC (4.1-5.3) 10^6/u L Hgb (11.7-16.6) g/dL Hct (42.0-52.0) % MCV (80-94) fl MCH (28.0-34.0) pg MCHC (30.0-36.0) g/dL RDW (12.1-15.1) % Plt Count (130-400) 10^3/c mm MPV (7.4-10.4) fL Neut % (Auto) % Lymph % (Auto) % [place] % (Auto) % Eos % (Auto) % Baso % (Auto) % Neut # (Auto) (1.8-7.7) 10^3/u L Lymph # (Auto) (0.8-4.8) 10^3/u L [place] # (Auto) (0.2-0.9) 10^3/u L Eos # (Auto) (0.0-0.8) 10^3/u L Baso # (Auto) (0.0-0.1) 10^3/u L Nucleated RBC % (a uto) % Nucleated RBCs # /100WBC Sodium (136-145) mmol/L Potassium (3.5-5.1) mmol/L Chloride (98-107) mmol/L Carbon Dioxide (22-29) mmol/L Anion Gap (5-19) BUN (8-23) mg/dL Creatinine (0.7-1.2) mg/dL GFR Calculation Glucose (65-115) mg/dL Calculated Osmolal ity (285-295) mOsm/k g Calcium (8.5-10.5) mg/dL Iron 20 L (59-158) ug/dL TIBC 386 mcg/dl % Saturation 5.1 L (20-50) % Unsat Iron Binding 366 H (112-347) ug/dL Total Bilirubin (0.15-1.2) mg/dL AST (0-40) U/L ALT (0-41) U/L Alkaline Phosphata se (40-130) IU/L Troponin T Baselin e (0-15) ng/L Troponin T 120 Min [place] 25.20 H (0-15) ng/L Delta Troponin T 4.20 (0-10) ABS# Total Protein (6.6-8.7) g/dL Albumin (3.5-5.2) g/dL Globulin (1.3-4.6) g/dL Imaging Data^: CXR: Attestation: I personally reviewed and interpreted this imaging study as follows: My impression: no acute abnormality EKG Data^: EKG 1: Attestation: I personally reviewed and interpreted this EKG as follows: EKG interpretation date: 06/24/21 EKG interpretation time: 20:35 Interpretation: nsr hr [address] elevation qrs 88 qtc 383 Discharge Plan Discharge Prescriptions: No Action Bevespi Aerosphere 9-4.8 mcg HFA aerosol inhaler 2 puff inhalation BID Qty: 10.7 RF: 3 Chantix Starting Month Box 0.5 mg (11)- 1 mg (42) tablets,dose pack See Rx Instructions PO PER PKG DIR 30 Days Qty: 42 RF: 0 gabapentin 600 mg tablet 1,200 mg PO BEDTIME RF: 0 paroxetine HCl 10 mg tablet 10 mg PO DAILY RF: 0 carvedilol 12.5 mg tablet 12.5 mg PO BID RF: 0 tizanidine 4 mg tablet 4 mg PO BEDTIME RF: 0 clopidogrel 75 mg tablet 75 mg PO DAILY RF: 0 simvastatin 20 mg tablet 20 mg PO DAILY RF: 0 omeprazole 20 mg capsule,delayed release(DR/EC) 20 mg PO DAILY RF: 0 aspirin 81 mg Tablet 81 mg PO DAILY RF: 0 albuterol sulfate [Ventolin HFA] 90 mcg/actuation HFA aerosol inhaler 2 inh INHALATION Q6H PRN (Reason: Shortness Of Breath) RF: 0 montelukast 10 mg tablet 10 mg PO DAILY RF: 0 Coding Level of Care Code ED Agency Legal Counsel for Chg Fwd Exam Comprehensive
[2021-06-24 20:51] LABS: Basophils % 0.6 %; Eosinophils # 0.5 10^3/uL (0.0-0.8); Eosinophils % 7.4 %; Hematocrit 23.9 % (42.0-52.0); Lymphocytes # 1.3 10^3/uL (0.8-4.8); Lymphocytes % 17.8 %; Mean Corpuscular HGB Conc 26.4 g/dL (30.0-36.0); Mean Corpuscular Hemoglobin 17.6 pg (28.0-34.0); Mean Corpuscular Volume 66.9 fl (80-94); Mean Platelet Volume 9.9 fL (7.4-10.4); Monocytes # 0.6 10^3/uL (0.2-0.9); Monocytes % 8.8 %; Neutrophils # 4.66 10^3/uL (1.8-7.7); Neutrophils % 65.3 %; Nucleated Red Blood Cells % 0 %; Platelet Count 208 10^3/cmm (130-400); Red Blood Count 3.57 10^6/uL (4.1-5.3); Red Cell Distribution Width 17.6 % (12.1-15.1); White Blood Count 7.1 10^3/uL (4.0-10.0)
[2021-06-24] MEDS: aspirin 81 mg Chew Tablet 324 MG PO (20:58)
[2021-06-24 21:04] VITALS: BP 175/101; PULSE 74; RESP 16; O2SAT 100
[2021-06-24 21:10] LABS: Troponin(5th) Baseline 21 ng/L (0-15)
[2021-06-24 21:13] LABS: Hemoglobin 6.3 g/dL (11.7-16.6)
[2021-06-24 21:32] VITALS: BP 168/73; PULSE 71; RESP 16; O2SAT 100
[2021-06-24 21:39] LABS: Alanine Aminotransferase 11 U/L (0-41); Albumin Level 4.6 g/dL (3.5-5.2); Alkaline Phosphatase 92 IU/L (40-130); Anion Gap 17.3 (5-19); Aspartate Amino Transferase 13 U/L (0-40); Blood Urea Nitrogen 13 mg/dL (8-23); Calcium 8.6 mg/dL (8.5-10.5); Carbon Dioxide 23 mmol/L (22-29); Chloride 98 mmol/L (98-107); Globulin 2.4 g/dL (1.3-4.6); Glucose 172 mg/dL (65-115); Osmolality Calculated 282 mOsm/kg (285-295); Potassium 4.3 mmol/L (3.5-5.1); Sodium 134 mmol/L (136-145); Total Bilirubin 0.2 mg/dL (0.15-1.2)
[2021-06-24 22:00] VITALS: BP 128/95; PULSE 64; RESP 18; O2SAT 99
[2021-06-24 22:30] VITALS: BP 154/78; RESP 18; O2SAT 99
--- NOTE | 2021-06-24 22:39 | ECG_ITS ---
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 Measurements Intervals [place] Rate: 57 P: 75 [place]: 169 QRS: 70 QRSD: 85 T: 63 QT: 420 QTc: 409 Interpretive Statements SINUS BRADYCARDIA WITH OCCASIONAL VENTRICULAR PREMATURE COMPLEXES SEPTAL MYOCARDIAL INFARCTION , OF INDETERMINATE AGE [40+ ms Q WAVE IN V1/V2] Compared to ECG 06/25/2021 06:07:12 Ventricular premature complex(es) now present Myocardial infarct finding now present Electronically Signed On 07-12-2021 22:23:20 CDT by Matt Verma M.D. [id number] f
[2021-06-24 22:58] LABS: Iron 20 ug/dL (59-158); Percent Saturation 5.1 % (20-50); Total Iron Binding Capacity 386 mcg/dl; Unsaturated Iron Binding 366 ug/dL (112-347)
--- NOTE | 2021-06-24 23:21 | PM.HP ---
Providers/Chief Complaint Admitting Physician: Renetta Dai MD Primary Care Provider: Ra Orozco MD Chief Complaint: Chest Pains History of Present Illness Luis Alberto Torres is a 76 year old male with a past medical history of CAD, COPD, chronic smoking that presented to the hospital today with chief complaints of chest pain. Patient describes the chest pain as intense burning sensation located in the middle of the chest which started at rest this afternoon. Patient took 2 nitros at the time which seemed to relieve the discomfort. He decided to come to the ER for further evaluation and and route to the ED said he had one other episode of similar burning sensation and numbness of the left arm again relieved by nitro. While walking into the ER, he said he reportedly felt very weak and nearly passed out though denies any dizziness, visual disturbances. Diagnostics in the ER show some ST depression on lead 2 EKG, troponin series has been obtained with baseline troponin of 20, 2-hour troponin at 17 and 6-hour at 25, with serial delta of -3 and +4 at 2 and 6-hour respectively. He is also noted to be hypertensive with systolic blood pressure ranging between 1 90-200. Significantly hemoglobin today is noted to be 6.3, last known baseline of 13 from 08/2020. Patient is on dual antiplatelet regimen with aspirin and Plavix for history of CAD with last stents approximately 2 years ago. He denies any melena or visible blood in stools. Denies any hemoptysis. He undergoes colonoscopy every 3 years and has been found to have colonic polyps without any history of malignancy. Last colonoscopy was 3 years ago. He does report a history of reflux for which he is on PPIs. Other labs also notable for microcytic hypochromic red blood cells and signs of iron deficiency. Reports eating home-cooked meals by his spouse. Other notable history is that for group B streptococcal infection 4 years ago, per patient history appears to be pyelonephritis and bacteremia, however he reports that they had to redo all his vasculature up to the aorta because of the infection. Review of Systems General: Reports: 10 or more systems reviewed and unremarkable except in HPI and below Const: Denies: fever(s), chills or body aches Eyes: Denies: change in vision, blurry vision or photophobia ENMT: Reports: hoarseness; Denies: throat pain, enlarged tonsils, odynophagia or nasal congestion Card: Denies: chest pain, palpitations, irregular heart rhythm, edema, swelling of feet/ankles, lightheadedness, pre-syncope, dyspnea on exertion or orthopnea Resp: Denies: dyspnea, productive cough, non-productive cough, wheezing, stridor, pain on inspiration, change in phlegm color, hemoptysis or chest congestion GI: Denies: abdominal pain, nausea, vomiting, hematemesis, coffee ground emesis, dysphagia, heartburn, diarrhea, constipation, GI cramping, change in stool character, hematochezia or melena : Denies: flank pain, dysuria, urinary frequency, urinary urgency, urinary hesitancy or hematuria Musc: Denies: neck pain, back pain, extremity pain, joint swelling, joint warmth or deformity Neuro: Denies: headache(s), numbness in extremities, weakness in extremities, sensory changes, difficulty walking, frequent falls, dizziness, vertigo, behavioral changes, Slurred speech present or seizure-like activity Psych: Denies: anxiety, depression, suicidal ideation or homicidal ideation Endo: Denies: polyuria, polydipsia, tired all the time, cold intolerance or hot flashes Didier/Lymph: Denies: easy bruising or easy bleeding Medications/Allergies Home Medications Medication Instructions Recorded Confirmed Last Taken Type albuterol sulfate [Ventolin HFA] 2 inh INHALATION Q6H PRN 09/07/20 06/24/21 09/07/20 History aspirin 81 mg PO DAILY 09/07/20 06/24/21 06/24/21 History carvedilol 12.5 mg PO BID 09/07/20 06/24/21 06/24/21 History clopidogrel 75 mg PO DAILY 09/07/20 06/24/21 06/24/21 History gabapentin 1,200 mg PO BEDTIME 09/07/20 06/24/21 06/23/21 History omeprazole 20 mg PO DAILY 09/07/20 06/24/21 06/24/21 History paroxetine HCl 10 mg PO DAILY 09/07/20 06/24/21 06/24/21 History simvastatin 20 mg PO DAILY 09/07/20 06/24/21 06/23/21 History tizanidine 4 mg PO BEDTIME 09/07/20 06/24/21 06/23/21 History glycopyrrolate 9 mcg-formoterol 2 puff INHALATION BID #10.7 g 05/19/21 06/24/21 06/24/21 Rx 4.8 mcg HFA aerosol inhaler varenicline 0.5 mg (11)-1 mg (42) See Rx Instructions PO PER PKG DIR 05/19/21 06/24/21 06/24/21 Rx tablets in a dose pack 30 Days #42 ea montelukast 10 mg PO DAILY 06/24/21 06/24/21 06/24/21 History Allergies Allergy/AdvReac Type Severity Reaction Status Date / Time diphenhydramine Allergy ADR-Shakine Verified 06/15/21 08:41 [From Benadryl] ss propoxyphene [From Darvon] Allergy Unconscious Verified 06/15/21 08:41 adhesive tape AdvReac ALGY-Rash Verified 06/15/21 08:41 PFSH Acute PFSH: Medical History (Updated 06/25/21 @ 05:34 by Renetta Dai MD) Anxiety Cataract Chronic back pain Coronary artery disease GERD (gastroesophageal reflux disease) HTN (hypertension) Hyperlipidemia Lung nodules Prostate cancer Restless leg Streptococcus group B infection Surgical History (Updated 06/25/21 @ 05:25 by Renetta Dai MD) History of ankle surgery History of appendectomy History of prostate surgery Hx of aortic valve repair Hx of ascending aorta replacement Hx of cataract surgery Hx of tonsillectomy S/P PTCA (percutaneous transluminal coronary angioplasty) Family History Brother Heart attack CAD (coronary artery disease) Chronic kidney disease (CKD) Stroke Father CAD (coronary artery disease) Stroke Sister Stroke Mother Stroke Other Heart disease Denies family history of Diabetes Clotting disorder Dementia Suicide Anesthesia complication Bleeding disorder Lung disease Cancer Social History Smoking and tobacco status: former smoker Second hand smoke exposure: Yes Smoking risk assessment/counseling performed?: Yes Alcohol intake: current Alcohol intake frequency: holidays/special occasions only Alcohol type: beer Counseling given: No Counseling given: Yes Lives independently: Yes Household members: spouse Marital status: Current occupational status: retired History of recent travel: No Current gender identity: Male Vitals/I&O/Wt Last Vital Signs Temp 98.4 F 06/24/21 20:41 Pulse 64 06/24/21 22:00 Resp 18 06/24/21 22:30 BP 154/78 06/24/21 22:30 Pulse Ox 99 06/24/21 22:30 Weight last 48 hrs Weight 70.307 kg Physical Exam Narrative: EXAM NARRATIVE: General: No acute distress, AO x3 HEENT: PERRLA, pupils bilaterally equal and reactive, pallors not present Chest: Normal vesicular breath sounds, no added sounds, equal good air entry bilaterally CVS: S1-S2 regular, no murmurs, no tachycardia, no gallops, no rubs Abdomen: Soft, nontender, no organomegaly, bowel sounds present Neuro: No focal deficits, no facial deformity, AO x3, power 5/5 in all limbs Extremities: No cyanosis clubbing edema Data : 06/24/21 20:30 06/24/21 20:30 Other Labs: Laboratory Results WBC 7.1 10^3/uL (4.0-10.0) 06/24/21 20:30 RBC 3.57 10^6/uL (4.1-5.3) L 06/24/21 20:30 Hgb 6.3 g/dL (11.7-16.6) L* 06/24/21 20:30 Hct 23.9 % (42.0-52.0) L 06/24/21 20:30 MCV 66.9 fl (80-94) L 06/24/21 20:30 MCH 17.6 pg (28.0-34.0) L 06/24/21 20:30 MCHC 26.4 g/dL (30.0-36.0) L 06/24/21 20:30 RDW 17.6 % (12.1-15.1) H 06/24/21 20:30 Plt Count 208 10^3/cmm (130-400) 06/24/21 20:30 MPV 9.9 fL (7.4-10.4) 06/24/21 20:30 Neut % (Auto) 65.3 % 06/24/21 20:30 Lymph % (Auto) 17.8 % 06/24/21 20:30 [place] % (Auto) 8.8 % 06/24/21 20:30 Eos % (Auto) 7.4 % 06/24/21 20:30 Baso % (Auto) 0.6 % 06/24/21 20:30 Reticulocyte % (Auto) 2.2 % (0.5-2.0) H 06/24/21 20:30 Neut # (Auto) 4.66 10^3/uL (1.8-7.7) 06/24/21 20:30 Lymph # (Auto) 1.3 10^3/uL (0.8-4.8) 06/24/21 20:30 [place] # (Auto) 0.6 10^3/uL (0.2-0.9) 06/24/21 20:30 Eos # (Auto) 0.5 10^3/uL (0.0-0.8) 06/24/21 20:30 Baso # (Auto) 0.0 10^3/uL (0.0-0.1) 06/24/21 20:30 Nucleated RBC % (auto) 0 % 06/24/21 20:30 Nucleated RBCs # 0.0 /100WBC 06/24/21 20:30 Sodium 134 mmol/L (136-145) L 06/24/21 20:30 Potassium 4.3 mmol/L (3.5-5.1) 06/24/21 20:30 Chloride 98 mmol/L (98-107) 06/24/21 20:30 Carbon Dioxide 23 mmol/L (22-29) 06/24/21 20:30 Anion Gap 17.3 (5-19) 06/24/21 20:30 BUN 13 mg/dL (8-23) 06/24/21 20:30 Creatinine 1.2 mg/dL (0.7-1.2) 06/24/21 20:30 GFR Calculation Not Reportable 06/24/21 20:30 Glucose 172 mg/dL (65-115) H 06/24/21 20:30 Calculated Osmolality 282 mOsm/kg (285-295) L 06/24/21 20:30 Calcium 8.6 mg/dL (8.5-10.5) 06/24/21 20:30 Iron 20 ug/dL (59-158) L 06/24/21 22:20 TIBC 386 mcg/dl 06/24/21 22:20 % Saturation 5.1 % (20-50) L 06/24/21 22:20 Unsat Iron Binding 366 ug/dL (112-347) H 06/24/21 22:20 Total Bilirubin 0.2 mg/dL (0.15-1.2) 06/24/21 20:30 AST 13 U/L (0-40) 06/24/21 20:30 ALT 11 U/L (0-41) 06/24/21 20:30 Alkaline Phosphatase 92 IU/L (40-130) 06/24/21 20:30 Troponin T Baseline 21 ng/L (0-15) H 06/24/21 20:30 Troponin T 120 Minute 25.20 ng/L (0-15) H 06/24/21 22:20 Delta Troponin T 4.20 ABS# (0-10) 06/24/21 22:20 Total Protein 7.0 g/dL (6.6-8.7) 06/24/21 20:30 Albumin 4.6 g/dL (3.5-5.2) 06/24/21 20:30 Globulin 2.4 g/dL (1.3-4.6) 06/24/21 20:30 Vitamin B12 879 pg/mL (232-1245) 06/24/21 20:38 Folate 19.0 ng/mL (4.5-32.2) 06/24/21 20:38 Blood Type O Negative 06/24/21 22:20 Rho(D) Type Negative 06/24/21 22:20 Antibody Screen Negative 06/24/21 22:20 Crossmatch See Detail 06/24/21 22:20 Impressions Chest X-Ray 06/24/21 20:38 IMPRESSION: No acute findings. A&P Assessment and plan (1) Symptomatic anemia: Patient presenting today with symptomatic anemia, hemoglobin at 6.3 with last known baseline of 13. Ordered for 2 units PRBC transfusion in ER. Target Hb 8 RBC indicis with microcytic hypochromic picture, low iron and TIBC consistent with iron deficiency anemia. Cause of iron deficiency unknown at this time. Check fecal occult blood testing. Patient denies any obvious melena or visible blood loss. Does report history of reflux and burning chest discomfort today, possibility of duodenal or gatric ulceration cannot be excluded at this time. Check B12, folate levels, retic count. Less likely hemolytic anemia given normal T.bili. Check haptoglobin level. Chest discomfort today with a h/o CAD : unlikely NSTEMI given only mildly elevated troponins and serial delta of -3 and 4. Angina precipitated by anemia cannot be excluded at this time, however would defer any stress testing for outpatient until anemia is improved. Status: Acute (2) Iron deficiency: Status: Acute (3) Coronary artery disease: Status: Acute Qualifiers: Coronary Disease-Associated Artery/Lesion type: unspecified vessel or lesion type [place] vs. transplanted heart: [place] heart Associated angina: unspecified whether angina present Qualified Code(s): I25.10 - Atherosclerotic heart disease of [place] coronary artery without angina pectoris Attestations Medical Necessity Statement*: observation admission today for blood transfuion, rpt Hb check, FOBT Coding Level of Care Code Acute Repairer Auto Clocks for g Fwd Diagnoses Symptomatic anemia D64.9 Iron deficiency E61.1 Coronary artery disease I25.10 Coronary Disease-Associated Artery/Lesion type: unspecified vessel or lesion type [place] vs. transplanted heart: [place] heart Associated angina: unspecified whether angina present
[2021-06-24 23:44] LABS: Reticulocyte % 2.2 % (0.5-2.0)
[2021-06-24 23:53] VITALS: BP 186/78; PULSE 64; RESP 18; TEMP 37.3
[2021-06-25] VITALS: BP 178/51; PULSE 67; RESP 18; O2SAT 100
[2021-06-25] MEDS: sodium chloride 0.9% (100 ml) 100 ML 15 ML ×2 (00:05→02:15)
[2021-06-25 00:11] LABS: Vitamin B12 879 pg/mL (232-1245)
[2021-06-25 01:54] VITALS: BP 175/81; PULSE 68; RESP 16; TEMP 36.9; O2SAT 99
[2021-06-25] MEDS: amlodipine 10 mg Tablet PO (02:00)
[2021-06-25 02:09] VITALS: BP 192/85; PULSE 66; RESP 16; TEMP 36.9; O2SAT 100
--- NOTE | 2021-06-25 02:39 | ECG_ITS ---
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 Measurements Intervals [place] Rate: 76 P: 81 NE: 138 QRS: -87 QRSD: 138 T: -42 QT: 383 QTc: 431 Interpretive Statements SINUS RHYTHM RIGHT BUNDLE BRANCH BLOCK [120+ ms QRS DURATION, UPRIGHT V1, 40+ ms S IN I/aVL/V4/V5/V6] LEFT ANTERIOR FASCICULAR BLOCK [QRS AXIS <= -45, QR IN I, RS IN II] MODERATE T-WAVE ABNORMALITY, CONSIDER INFERIOR ISCHEMIA [-0.1+ mV T-WAVE IN II/aVF] Compared to ECG 06/24/2021 20:35:16 Right bundle-branch block now present Left anterior fascicular block now present T-wave abnormality now present Possible ischemia now present ST (T wave) deviation no longer present Electronically Signed On 06-25-2021 20:40:17 CDT by Matt Verma M.D. [id number]
[2021-06-25] MEDS: tizanidine 4 mg Tablet PO (02:44)
[2021-06-25 04:00] VITALS: BP 107/47; PULSE 55; RESP 18; O2SAT 98
[2021-06-25 04:16] VITALS: BP 107/47; PULSE 55; RESP 18; TEMP 36.9; O2SAT 99
[2021-06-25 05:38] LABS: Hematocrit 27.2 % (42.0-52.0); Hemoglobin 7.7 g/dL (11.7-16.6)
--- NOTE | 2021-06-25 05:38 | ECG_ITS ---
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 Measurements Intervals [place] Rate: 56 P: 74 SD: 179 QRS: 73 QRSD: 88 T: 53 QT: 406 QTc: 393 Interpretive Statements SINUS BRADYCARDIA Compared to ECG 06/25/2021 02:18:51 Sinus rhythm no longer present Right bundle-branch block no longer present Left anterior fascicular block no longer present T-wave abnormality no longer present Possible ischemia no longer present Electronically Signed On 06-25-2021 20:33:38 CDT by Matt Verma M.D. [id number]
[2021-06-25 05:58] LABS: Troponin 5 6HR 28.99 ng/L (0-15)
[2021-06-25 06:06] LABS: Thyroid Stimulating Hormone 8.96 uIU/mL (0.27-4.20)
--- NOTE | 2021-06-25 08:44 | PM.DCS ---
Discharge Providers Date of Discharge: June 25, 2021 Attending Provider at Discharge: Tres Rubio MD Primary Care Provider: Ra Castillo MD Diagnoses at Discharge Discharge Diagnosis (1) Symptomatic anemia: Status: Acute (2) Iron deficiency: Status: Acute (3) Coronary artery disease: Status: Acute Qualifiers: Associated angina: unspecified whether angina present Coronary Disease-Associated Artery/Lesion type: unspecified vessel or lesion type [place] vs. transplanted heart: [place] heart Qualified Code(s): I25.10 - Atherosclerotic heart disease of [place] coronary artery without angina pectoris Reason for Visit Reason for Visit: Chest Pains Hospital Course Hospital Course Luis Alberto Torres is a 76 year old male with a past medical history of CAD, COPD, chronic smoking that presented to the hospital today with chief complaints of chest pain. Patient describes the chest pain as intense burning sensation located in the middle of the chest which started at rest this afternoon. Patient took 2 nitros at the time which seemed to relieve the discomfort. He decided to come to the ER for further evaluation and and route to the ED said he had one other episode of similar burning sensation and numbness of the left arm again relieved by nitro. While walking into the ER, he said he reportedly felt very weak and nearly passed out though denies any dizziness, visual disturbances. Diagnostics in the ER show some ST depression on lead 2 EKG, troponin series has been obtained with baseline troponin of 20, 2-hour troponin at 17 and 6-hour at 25, with serial delta of -3 and +4 at 2 and 6-hour respectively. He is also noted to be hypertensive with systolic blood pressure ranging between 1 90-200. Significantly hemoglobin today is noted to be 6.3, last known baseline of 13 from 08/2020. Patient is on dual antiplatelet regimen with aspirin and Plavix for history of CAD with last stents approximately 2 years ago. He denies any melena or visible blood in stools. Denies any hemoptysis. He undergoes colonoscopy every 3 years and has been found to have colonic polyps without any history of malignancy. Last colonoscopy was 3 years ago. He does report a history of reflux for which he is on PPIs. Other labs also notable for microcytic hypochromic red blood cells and signs of iron deficiency. Reports eating home-cooked meals by his spouse. Other notable history is that for group B streptococcal infection 4 years ago, per patient history appears to be pyelonephritis and bacteremia, however he reports that they had to redo all his vasculature up to the aorta because of the infection. Patient went to the hospital for further management. He was transfused 1 unit of PRBC. His hemoglobin improved to 7.7. Patient requires further hospitalization for management and evaluation of anemia, possible consultation with surgery for endoscopy and colonoscopy and cardiology. By morning patient started feeling better and wanted to leave home. He was counseled multiple times for need to stay in the hospital for longer but left AMA. Physical Exam Narrative: EXAM NARRATIVE: General: No acute distress, AO x3 HEENT: PERRLA, pupils bilaterally equal and reactive, pallors not present Chest: Normal vesicular breath sounds, no added sounds, equal good air entry bilaterally CVS: S1-S2 regular, no murmurs, no tachycardia, no gallops, no rubs Abdomen: Soft, nontender, no organomegaly, bowel sounds present Neuro: No focal deficits, no facial deformity, AO x3, power 5/5 in all limbs Extremities: No cyanosis clubbing edema Discharge Data Data Completed and Pending: Completed Studies During Hospitalization Category Date Time Status XR chest 1V sai ble [id number] Stat Exams 06/24/21 20:38 Completed Labs from last 24 hours 06/25/21 06/25/21 06/25/21 05:22 05:22 05:22 WBC RBC Hgb 7.7 L Hct 27.2 L MCV MCH MCHC RDW Plt Count MPV Neut % (Auto) Lymph % (Auto) Jack % (Auto) Eos % (Auto) Baso % (Auto) Reticulocyte % (Au to) Neut # (Auto) Lymph # (Auto) Jack # (Auto) Eos # (Auto) Baso # (Auto) Nucleated RBC % (a uto) Nucleated RBCs # Haptoglobin Sodium Potassium Chloride Carbon Dioxide Anion Gap BUN Creatinine GFR Calculation Glucose Calculated Osmolal ity Calcium Iron TIBC % Saturation Unsat Iron Binding Total Bilirubin AST ALT Alkaline Phosphata se Troponin T Baselin e Troponin T 120 Min [place] Delta Troponin T Troponin T Hi Sens 6Hr 28.99 H Troponin T Hi Sens 6Hr Delta TNP Total Protein Albumin Globulin Vitamin B12 Folate TSH 8.96 H Blood Type Rho(D) Type Antibody Screen Crossmatch 06/24/21 06/24/21 06/24/21 22:20 22:20 22:20 WBC RBC Hgb Hct MCV MCH MCHC RDW Plt Count MPV Neut % (Auto) Lymph % (Auto) Jack % (Auto) Eos % (Auto) Baso % (Auto) Reticulocyte % (Au to) Neut # (Auto) Lymph # (Auto) Jack # (Auto) Eos # (Auto) Baso # (Auto) Nucleated RBC % (a uto) Nucleated RBCs # Haptoglobin Sodium Potassium Chloride Carbon Dioxide Anion Gap BUN Creatinine GFR Calculation Glucose Calculated Osmolal ity Calcium Iron 20 L TIBC 386 % Saturation 5.1 L Unsat Iron Binding 366 H Total Bilirubin AST ALT Alkaline Phosphata se Troponin T Baselin e Troponin T 120 Min [place] 25.20 H Delta Troponin T 4.20 Troponin T Hi Sens 6Hr Troponin T Hi Sens 6Hr Delta Total Protein Albumin Globulin Vitamin B12 Folate TSH Blood Type O Negative Rho(D) Type Negative Antibody Screen Negative Crossmatch See Detail 06/24/21 06/24/21 06/24/21 20:38 20:38 20:38 WBC RBC Hgb Hct MCV MCH MCHC RDW Plt Count MPV Neut % (Auto) Lymph % (Auto) Jack % (Auto) Eos % (Auto) Baso % (Auto) Reticulocyte % (Au to) Neut # (Auto) Lymph # (Auto) Jack # (Auto) Eos # (Auto) Baso # (Auto) Nucleated RBC % (a uto) Nucleated RBCs # Haptoglobin 213.0 H Sodium Potassium Chloride Carbon Dioxide Anion Gap BUN Creatinine GFR Calculation Glucose Calculated Osmolal ity Calcium Iron TIBC % Saturation Unsat Iron Binding Total Bilirubin AST ALT Alkaline Phosphata se Troponin T Baselin e Troponin T 120 Min [place] Delta Troponin T Troponin T Hi Sens 6Hr Troponin T Hi Sens 6Hr Delta Total Protein Albumin Globulin Vitamin B12 879 Folate 19.0 TSH Blood Type Rho(D) Type Antibody Screen Crossmatch 06/24/21 06/24/21 06/24/21 20:30 20:30 20:30 WBC RBC Hgb Hct MCV MCH MCHC RDW Plt Count MPV Neut % (Auto) Lymph % (Auto) Jack % (Auto) Eos % (Auto) Baso % (Auto) Reticulocyte % (Au to) 2.2 H Neut # (Auto) Lymph # (Auto) Jack # (Auto) Eos # (Auto) Baso # (Auto) Nucleated RBC % (a uto) Nucleated RBCs # Haptoglobin Sodium 134 L Potassium 4.3 Chloride 98 Carbon Dioxide 23 Anion Gap 17.3 BUN 13 Creatinine 1.2 GFR Calculation Not Reportable Glucose 172 H Calculated Osmolal ity 282 L Calcium 8.6 Iron TIBC % Saturation Unsat Iron Binding Total Bilirubin 0.2 AST 13 ALT 11 Alkaline Phosphata se 92 Troponin T Baselin e 21 H Troponin T 120 Min [place] Delta Troponin T Troponin T Hi Sens 6Hr Troponin T Hi Sens 6Hr Delta Total Protein 7.0 Albumin 4.6 Globulin 2.4 Vitamin B12 Folate TSH Blood Type Rho(D) Type Antibody Screen Crossmatch 06/24/21 20:30 WBC 7.1 RBC 3.57 L Hgb 6.3 L* Hct 23.9 L MCV 66.9 L MCH 17.6 L MCHC 26.4 L RDW 17.6 H Plt Count 208 MPV 9.9 Neut % (Auto) 65.3 Lymph % (Auto) 17.8 Jack % (Auto) 8.8 Eos % (Auto) 7.4 Baso % (Auto) 0.6 Reticulocyte % (Au to) Neut # (Auto) 4.66 Lymph # (Auto) 1.3 Jack # (Auto) 0.6 Eos # (Auto) 0.5 Baso # (Auto) 0.0 Nucleated RBC % (a uto) 0 Nucleated RBCs # 0.0 Haptoglobin Sodium Potassium Chloride Carbon Dioxide Anion Gap BUN Creatinine GFR Calculation Glucose Calculated Osmolal ity Calcium Iron TIBC % Saturation Unsat Iron Binding Total Bilirubin AST ALT Alkaline Phosphata se Troponin T Baselin e Troponin T 120 Min [place] Delta Troponin T Troponin T Hi Sens 6Hr Troponin T Hi Sens 6Hr Delta Total Protein Albumin Globulin Vitamin B12 Folate TSH Blood Type Rho(D) Type Antibody Screen Crossmatch Addt'l Data from Hospital Stay: Laboratory Results WBC 7.1 10^3/uL (4.0- 10.0) 06/24/21 20:30 RBC 3.57 10^6/uL (4.1 -5.3) L 06/24/21 20:30 Hgb 7.7 g/dL (11.7-16 .6) L 06/25/21 05:22 Hct 27.2 % (42.0-52.0 ) L 06/25/21 05:22 MCV 66.9 fl (80-94) L 06/24/21 20:30 MCH 17.6 pg (28.0-34. 0) L 06/24/21 20:30 MCHC 26.4 g/dL (30.0-3 6.0) L 06/24/21 20:30 RDW 17.6 % (12.1-15.1 ) H 06/24/21 20:30 Plt Count 208 10^3/cmm (130 -400) 06/24/21 20:30 MPV 9.9 fL (7.4-10.4) 06/24/21 20:30 Neut % (Auto) 65.3 % 06/24/21 20:30 Lymph % (Auto) 17.8 % 06/24/21 20:30 Jack % (Auto) 8.8 % 06/24/21 20:30 Eos % (Auto) 7.4 % 06/24/21 20:30 Baso % (Auto) 0.6 % 06/24/21 20:30 Reticulocyte % (Au to) 2.2 % (0.5-2.0) H 06/24/21 20:30 Neut # (Auto) 4.66 10^3/uL (1.8 -7.7) 06/24/21 20:30 Lymph # (Auto) 1.3 10^3/uL (0.8- 4.8) 06/24/21 20:30 Jack # (Auto) 0.6 10^3/uL (0.2- 0.9) 06/24/21 20:30 Eos # (Auto) 0.5 10^3/uL (0.0- 0.8) 06/24/21 20:30 Baso # (Auto) 0.0 10^3/uL (0.0- 0.1) 06/24/21 20:30 Nucleated RBC % (a uto) 0 % 06/24/21 20:30 Nucleated RBCs # 0.0 /100WBC 06/24/21 20:30 Haptoglobin 213.0 mg/L (30-20 0) H 06/24/21 20:38 Sodium 134 mmol/L (136-1 45) L 06/24/21 20:30 Potassium 4.3 mmol/L (3.5-5 .1) 06/24/21 20:30 Chloride 98 mmol/L (98-107 ) 06/24/21 20:30 Carbon Dioxide 23 mmol/L (22-29) 06/24/21 20:30 Anion Gap 17.3 (5-19) 06/24/21 20:30 BUN 13 mg/dL (8-23) 06/24/21 20:30 Creatinine 1.2 mg/dL (0.7-1. 2) 06/24/21 20:30 GFR Calculation Not Reportable 06/24/21 20:30 Glucose 172 mg/dL (65-115 ) H 06/24/21 20:30 Calculated Osmolal ity 282 mOsm/kg (285- 295) L 06/24/21 20:30 Calcium 8.6 mg/dL (8.5-10 .5) 06/24/21 20:30 Iron 20 ug/dL (59-158) L 06/24/21 22:20 TIBC 386 mcg/dl 06/24/21 22:20 % Saturation 5.1 % (20-50) L 06/24/21 22:20 Unsat Iron Binding 366 ug/dL (112-34 7) H 06/24/21 22:20 Total Bilirubin 0.2 mg/dL (0.15-1 .2) 06/24/21 20:30 AST 13 U/L (0-40) 06/24/21 20:30 ALT 11 U/L (0-41) 06/24/21 20:30 Alkaline Phosphata se 92 IU/L (40-130) 06/24/21 20:30 Troponin T Baselin e 21 ng/L (0-15) H 06/24/21 20:30 Troponin T 120 Min [place] 25.20 ng/L (0-15) H 06/24/21 22:20 Delta Troponin T 4.20 ABS# (0-10) 06/24/21 22:20 Troponin T Hi Sens 6Hr 28.99 ng/L (0-15) H 06/25/21 05:22 Troponin T Hi Sens 6Hr Delta TNP 06/25/21 05:22 Total Protein 7.0 g/dL (6.6-8.7 ) 06/24/21 20:30 Albumin 4.6 g/dL (3.5-5.2 ) 06/24/21 20:30 Globulin 2.4 g/dL (1.3-4.6 ) 06/24/21 20:30 Vitamin B12 879 pg/mL (232-12 45) 06/24/21 20:38 Folate 19.0 ng/mL (4.5-3 2.2) 06/24/21 20:38 TSH 8.96 uIU/mL (0.27 -4.20) H 06/25/21 05:22 Blood Type O Negative 06/24/21 22:20 Rho(D) Type Negative 06/24/21 22:20 Antibody Screen Negative 06/24/21 22:20 Crossmatch See Detail 06/24/21 22:20 Impressions Chest X-Ray 06/24/21 20:38 IMPRESSION: No acute findings. Vitals: Last Vital Signs Temp 98.5 F 06/25/21 04:16 Pulse 55 L 06/25/21 04:16 Resp 18 06/25/21 04:16 BP 107/47 06/25/21 04:16 Pulse Ox 99 06/25/21 04:16 Discharge Plan Discharge Patient Disposition: Left Against Medical Advice Prescriptions: No Action Bevespi Aerosphere 9-4.8 mcg HFA aerosol inhaler 2 puff inhalation BID Qty: 10.7 RF: 3 Chantix Starting Month Box 0.5 mg (11)- 1 mg (42) tablets,dose pack See Rx Instructions PO PER PKG DIR 30 Days Qty: 42 RF: 0 gabapentin 600 mg tablet 1,200 mg PO BEDTIME RF: 0 paroxetine HCl 10 mg tablet 10 mg PO DAILY RF: 0 carvedilol 12.5 mg tablet 12.5 mg PO BID RF: 0 tizanidine 4 mg tablet 4 mg PO BEDTIME RF: 0 clopidogrel 75 mg tablet 75 mg PO DAILY RF: 0 simvastatin 20 mg tablet 20 mg PO DAILY RF: 0 omeprazole 20 mg capsule,delayed release(DR/EC) 20 mg PO DAILY RF: 0 aspirin 81 mg Tablet 81 mg PO DAILY RF: 0 albuterol sulfate [Ventolin HFA] 90 mcg/actuation HFA aerosol inhaler 2 inh INHALATION Q6H PRN (Reason: Shortness Of Breath) RF: 0 montelukast 10 mg tablet 10 mg PO DAILY RF: 0 Referrals: RA CASTILLO MD [Primary Care Provider] - Discharge Attestations Time Spent in Discharge Care*: greater than 30 min Specific Discharge Activities: educating patient, discussing with case finisher/social workers/dc planners, documenting/other paperwork and evaluating patient/reviewing data Status at Discharge: Cognitive status at discharge: cognitively intact, Behavioral status at discharge: cooperative, Functional status at discharge: independent ambulation Overall status at discharge: patient is not back to baseline Quality Metrics Clinical Quality Measures During this hospital stay, did patient experience: None Coding Level of Care Code Acute Chg DC note Diagnoses Symptomatic anemia D64.9 Iron deficiency E61.1 Coronary artery disease I25.10 Associated angina: unspecified whether angina present Coronary Disease-Associated Artery/Lesion type: unspecified vessel or lesion type [place] vs. transplanted heart: [place] heart
== END 2021-06-25 08:25 | disposition left against medical advice (07) ==
PROVIDERS: Student in an Organized Health Care Education/Training Program; Emergency Provider Emergency Medicine; PCP Internal Medicine; Visit Provider Student in an Organized Health Care Education/Training Program
DX: R07.9 Chest pain, unspecified (principal); Z79.02 Long term (current) use of antithrombotics/antiplatelets; Z79.82 Long term (current) use of aspirin; I25.10 Atherosclerotic heart disease of native coronary artery without angina pectoris; Z87.891 Personal history of nicotine dependence
CPT/HCPCS: 36430; 71045; 80053; 82607; 82746; 83010; 83540; 83550; 84443; 84484; 85014; 85018; 85025; 85045; 86850; 86900; 86920; 93005; 99284; 99291; 99292; P9016

== ENCOUNTER 2021-06-29 11:27 | Outpatient (CLI) | payer MEDICARE, OTHER, SELFPAY ==
--- NOTE | 2021-06-29 11:45 | MR_ITS ---
WS: [id number] MRI LUMBAR SPINE NONCONTRAST HISTORY: 3 months of low back pain. No injury. COMPARISON: 09/27/2018 TECHNIQUE: Sagittal and axial multisequence imaging is submitted. Degenerative disc disease and osteophytosis in the cervical spine. Mild encroachment into the cervica l canal at C3-4. Straightening and mild RIGHT curvature lumbar spine. Advanced degenerative changes in the lumbar spin e, most significant at L3-4 and L4-5. Osteophytes and disc space narrowing and reactive marrow signal changes. Conus terminates normally at L1-2 disc level. L1-L2: Mild annular disc bulging with a central disc protrusion. Mild ligamentum flavum hypertrophy. L2-L3: Diffuse annular disc bulging and osteophytic ridging. Mild ligamentum flavum disease and facet arthritis, greatest on the LEFT. Mild central and bilateral foraminal stenosis. Slightly greater jakob rowing of the LEFT subarticular recess with encroachment upon the LEFT L3 nerve root. L3-L4: Diffuse osteophytic ridging and annular disc bulging with severe bilateral ligamentum flavum a nd facet arthritis. Facet disease encroaching into the thecal sac, greatest on the LEFT. Central disc protrusion extends greatest to the LEFT. Combination of factors is resulting in moderate central and bilateral foraminal stenosis. Severe LEFT subarticular recess stenosis. Significant encroachment upo n the L4 nerve roots bilaterally, LEFT greater than RIGHT. L4-L5: Mild annular disc bulging with a central disc protrusion and osteophytic ridging. Mild bilater al facet joint arthritis. Mild bilateral subarticular recess and foraminal stenosis. L5-S1: Diffuse annular disc bulging with ligamentum flavum disease and facet arthritis. Mild RIGHT fo raminal narrowing. Bilateral renal cysts. Atherosclerosis aorta. MR/MR lumbar spine wo con* [id number] IMPRESSION: 1. Moderate progression of stenosis and degenerative changes throughout the miriam mbar spine since 09/27/2018. 2. Moderate central and bilateral foraminal stenosis at L3-4. Severe LEFT sub articular recess stenosis at L3-4 with significant encroachment upon the L4 ner ve roots but greatest on the LEFT. 3. LEFT subarticular recess stenosis with encroachment upon the LEFT L3 nerve root at L2-3. Mild central and bilateral frontal stenosis at L2-3. 4. Mild bilateral subarticular recess and foraminal stenosis at L4-5. 5. Mild RIGHT foraminal narrowing at L5-S1.
== END 2021-06-29 11:28 | disposition home or self-care (01) ==
LOC: RADSHAW 11:30
PROVIDERS: PCP Internal Medicine; Visit Provider Orthopaedic Surgery
DX: M48.061 Spinal stenosis, lumbar region without neurogenic claudication (principal)
CPT/HCPCS: 72148

== ENCOUNTER 2021-07-11 21:57 | Inpatient (IN) | payer MEDICARE, OTHER, SELFPAY ==
[2021-07-11 22:10] VITALS: BP 179/51; PULSE 52; RESP 18; TEMP 36.8; O2SAT 98; BMI 23.7
--- NOTE | 2021-07-11 22:49 | CTR_ITS ---
PROCEDURE INFORMATION: Exam: CT Angiography Head With Contrast, Arteriography Exam date and time: 07/11/2021 10:49 PM Age: 76 years old Clinical indication: Patient HX: R sided weakness; Additional info: Rule out lvot TECHNIQUE: Imaging protocol: Computed tomography angiography of the head with contrast. Exam focused on the arteries. 3D rendering (Not supervised by radiologist): MIP and/or 3D reconstructed images were created by the technologist. Radiation optimization: All CT scans at this facility use at least one of these dose optimization techniques: automated exposure control; mA and/or kV adjustment per patient size (includes targeted exams where dose is matched to clinical indication); or iterative reconstruction. Contrast material: VISI 320; Contrast volume: 95 ml; Contrast route: INTRAVENOUS (IV); COMPARISON: CT head wo con* [id number] 07/11/2021 10:51 PM RADIATION DOSE METRICS: Total DLP (mGy-cm): 2504.55 FINDINGS: ANTERIOR CIRCULATION: Right internal carotid artery: Calcific plaque and several mild stenoses in the right internal carotid artery. One moderate stenosis in the cavernous portion of this artery, also. No aneurysm. Right middle cerebral artery: No occlusion or significant stenosis. No aneurysm. Right anterior cerebral artery: No occlusion or significant stenosis. No aneurysm. Left internal carotid artery: Calcific plaque and a few mild or kfqf-bc-rjaofqop stenoses in the left internal carotid artery. Left middle cerebral artery: No occlusion or significant stenosis. No aneurysm. Left anterior cerebral artery: No occlusion or significant stenosis. No aneurysm. POSTERIOR CIRCULATION: Right vertebral artery: No occlusion or significant stenosis. No aneurysm. Left vertebral artery: No occlusion or significant stenosis. No aneurysm. Basilar artery: No occlusion or significant stenosis. No aneurysm. Right posterior cerebral artery: No occlusion or significant stenosis. No aneurysm. Left posterior cerebral artery: No occlusion or significant stenosis. No aneurysm. Right posterior communicating artery: Small right posterior communicating artery. Veins: Major venous sinuses patent. Brain: No abnormal enhancement in the brain. Chronic ischemic changes again evident. Cerebral ventricles: Slight enlargement of the 3rd and lateral ventricles not mentioned previously, but unchanged. Continued normal 4th ventricle. Orbital cavity: Synthetic lenses in the eyes. Bones/joints: Unremarkable. No acute fracture. Mastoid air cells: Left mastoid disease again evident. Slight right mastoid disease now appreciated. Soft tissues: Unremarkable. Paranasal sinuses: Stable chronic sinus disease. IMPRESSION: 1. Multiple stenoses in the internal carotid arteries detailed above. No occlusion of any of the major head arteries. 2. Bilateral mastoid disease now appreciated. Other findings detailed above. PROCEDURE INFORMATION: Exam: CT Angiography Neck With Contrast Exam date and time: 07/11/2021 10:49 PM Age: 76 years old Clinical indication: Patient HX: R sided weakness; Additional info: Rule out lvot TECHNIQUE: Imaging protocol: Computed tomography angiography of the neck with contrast. 3D rendering (Not supervised by radiologist): MIP and/or 3D reconstructed images were created by the technologist. Radiation optimization: All CT scans at this facility use at least one of these dose optimization techniques: automated exposure control; mA and/or kV adjustment per patient size (includes targeted exams where dose is matched to clinical indication); or iterative reconstruction. Contrast material: VISI 320; Contrast volume: 95 ml; Contrast route: INTRAVENOUS (IV); COMPARISON: CT head wo con* [id number] 07/11/2021 10:51 PM RADIATION DOSE METRICS: Total DLP (mGy-cm): 2504.55 FINDINGS: Right common carotid artery: Mild stenosis of the very proximal right common carotid artery and a few areas of minimal narrowing more distally in this artery. Right internal carotid artery: Calcific plaque causing a 70-80% stenosis of the origin of the right internal carotid artery. Right external carotid artery: [id number]-[id number] stenosis of the proximal right ECA. Left common carotid artery: Approximately moderate stenosis of the origin of the left common carotid artery despite motion artifact. [id number] stenosis of the very distal aspect of this artery. Left internal carotid artery: Approximately 80% narrowing of the origin of the left internal carotid artery. Mild stenosis in the proximal left ICA. No significant stenosis elsewhere in this artery. Left external carotid artery: Mild stenosis of the proximal left ECA. Right vertebral artery: Moderate stenosis in the proximal right vertebral artery at its entrance into the right C6-C7 foramen. No significant stenosis elsewhere in this artery. Left vertebral artery: Approximately 70-80% stenosis at the origin of the left vertebral artery. One mild stenosis more distally in this artery. Right subclavian artery: Mild stenosis of the proximal right subclavian artery. Left subclavian artery: Multiple slight stenoses in the proximal left subclavian artery. Aorta: Prominent atherosclerosis of the visualized aortic arch and other arteries. Thyroid: Unremarkable thyroid. Lymph nodes: No enlarged nodes. Soft tissues: No soft tissue swelling. Bones/joints: Old slight anterior wedging of T1. No acute fracture. Multilevel disc findings: Prominent degeneration of the C3-C4, C5-C6 and C6-C7 discs. Mild narrowing of the C4-C5 disc. Degeneration of the midline atlantoaxial joint. Left central focal disc protrusion containing some calcifications at C6-C7 causing mild left canal stenosis. Slight annular bulging and mild canal stenosis at C5-C6. No significant canal stenosis elsewhere. Small central focal disc protrusion at C3-C4. Lungs: Innumerable centrilobular and numerous paraseptal blebs in the upper lungs. Several pleural-based stranding densities in each upper lung. 6 mm noncalcified nodular density in the left upper lobe on image [address]/CT angio headneck* [id number] IMPRESSION: 1. Prominent stenoses in the left common carotid and both internal carotid and vertebral arteries detailed above. 2. Marked emphysema. 6 mm noncalcified nodule in the left upper lobe. For patients at low risk (minimal or absent history of smoking and of other known risk factors), recommend CT Chest at 6-12 months, then consider CT Chest at 18-24 months. For patients at high risk (history of smoking or of other known risk factors), recommend CT Chest at 6-12 months, then CT Chest at 18-24 months. (Reference: Rosemarie) 3. Multilevel degenerative disease in the spine and other findings detailed above. REFERENCES: 1. Rosemarie Vogt, et al. Guidelines for Management of Incidental Pulmonary Nodules Detected on CT Images: From the Fleischner Society 2017. Radiology. 2017;284(1):228-243. 2. NASCET CRITERIA. The degree of internal carotid artery stenosis is based on NASCET criteria. Normal is no stenosis. Mild is less than 50% stenosis. Moderate is 50-69% stenosis. Severe is 70% to 99% stenosis. Total occlusion is no detectable patent lumen. Radiation Dose CTDIVOL = (mGy): DLP = 2504.55~2504.55 (mGy-cm)
--- NOTE | 2021-07-11 22:49 | CTR_ITS ---
PROCEDURE INFORMATION: Exam: CT Head Without Contrast Exam date and time: 07/11/2021 10:49 PM Age: 76 years old Clinical indication: Weakness, extremity; Right; Patient HX: R sided weakness; Additional info: Symptoms of acute stroke TECHNIQUE: Imaging protocol: Computed tomography of the head without contrast. Radiation optimization: All CT scans at this facility use at least one of these dose optimization techniques: automated exposure control; mA and/or kV adjustment per patient size (includes targeted exams where dose is matched to clinical indication); or iterative reconstruction. COMPARISON: MRI Head w/wo* [id number] 10/05/2015 1:24 PM RADIATION DOSE METRICS: Total DLP (mGy-cm): 934.72 FINDINGS: Brain: Two old lacunar infarcts in the posterior left basal ganglia again evident. Interval appearance of the old lacunar infarct in the right centrum semiovale along the lateral margin of the junction of the body and head of the caudate nucleus. Continued slight patchy low density in the cerebral white matter bilaterally consistent with chronic ischemic changes. No apparent edema in the brain. Still no intracranial hemorrhage. Cerebral ventricles: No ventriculomegaly. Paranasal sinuses: Continued mucosal thickening in several paranasal sinuses. No air-fluid levels. Mastoid air cells: Continued inferior left mastoid disease. Bones/joints: Unremarkable. No acute fracture. Soft tissues: Unremarkable. CT/CT head wo con* [id number] IMPRESSION: 1. No acute findings. Interval slight worsening of the chronic ischemic changes. 2. Inferior left mastoid disease again evident. Continued chronic sinus disease. Radiation Dose CTDIVOL = (mGy): DLP = 934.72 (mGy-cm)
[2021-07-11 23:00] LABS: Basophils # 0.1 10^3/uL (0.0-0.1); Basophils % 0.8 %; Eosinophils # 0.6 10^3/uL (0.0-0.8); Eosinophils % 7.5 %; Hematocrit 35.8 % (42.0-52.0); Lymphocytes # 1.3 10^3/uL (0.8-4.8); Lymphocytes % 16.7 %; Mean Corpuscular HGB Conc 27.9 g/dL (30.0-36.0); Mean Corpuscular Hemoglobin 22.5 pg (28.0-34.0); Mean Corpuscular Volume 80.4 fl (80-94); Mean Platelet Volume 9.2 fL (7.4-10.4); Monocytes # 0.6 10^3/uL (0.2-0.9); Monocytes % 7.6 %; Neutrophils # 5.33 10^3/uL (1.8-7.7); Neutrophils % 67.3 %; Nucleated Red Blood Cells % 0 %; Platelet Count 314 10^3/cmm (130-400); Red Blood Count 4.45 10^6/uL (4.1-5.3); Red Cell Distribution Width 27.9 % (12.1-15.1); White Blood Count 7.9 10^3/uL (4.0-10.0)
[2021-07-11] MEDS: iodixanol 320 mg/mL 100mL Btl IV (23:04)
[2021-07-11 23:10] LABS: INR 1.02 (0.8-1.2)
[2021-07-11 23:11] LABS: Partial Thromboplastin Time 27.9 SECONDS (23.9-36.7)
[2021-07-11 23:15] LABS: Alanine Aminotransferase 9 U/L (0-41); Albumin Level 4.2 g/dL (3.5-5.2); Alkaline Phosphatase 84 IU/L (40-130); Anion Gap 13.2 (5-19); Aspartate Amino Transferase 11 U/L (0-40); Blood Urea Nitrogen 14 mg/dL (8-23); Carbon Dioxide 26 mmol/L (22-29); Chloride 102 mmol/L (98-107); Globulin 2.2 g/dL (1.3-4.6); Glucose 322 mg/dL (65-115); Osmolality Calculated 297 mOsm/kg (285-295); Potassium 4.2 mmol/L (3.5-5.1); Sodium 137 mmol/L (136-145); Total Bilirubin 0.2 mg/dL (0.15-1.2); Total Protein 6.4 g/dL (6.6-8.7)
[2021-07-12] VITALS (13 sets, daily range): BP systolic 115–215; BP diastolic 56–71; PULSE 50–78; RESP 15–20; TEMP 36.3–36.6; O2SAT 95–97; BMI 25.8
--- NOTE | 2021-07-12 00:08 | W.ED.GENADLT ---
Documented by User: Narcisa Coello MD 07/14/21 04:53 HPI - General Adult General: Chief complaint: Weakness Stated complaint: weakness on R leg and R hand Time Seen by Provider: 07/11/21 22:49 History of Present Illness: HPI narrative: Patient is a 76-year-old male with history of hypertension, remote stroke with no residual neuro deficits, who presents the emergency room for complaints of complete right-sided weakness. Patient was last seen normal at 4:30 PM by family member. However, family noticed patient was not acting like himself and is unable to move his right side later in the evening. Patient then came to the emergency for evaluation. Denies any blood thinner use. Onset:6 hrs ago Duration:6 hrs Location:home Severity:severe Review of Systems Narrative: Constitutional: No fever, no chills. HEENT: No vision changes CV: No chest pain, no palpitations PULM: no cough, no dyspnea. GI: No abdominal pain, no N/V/D. : No dysuria MSKEL: No muscle pain SKIN: No new rashes, no lesions. NEURO: No headache, +R hemiplegia HEME: No visible bruises PSYCH: Normal mood PFSH ED PFSH: Medical History Anxiety Cataract Chronic back pain Coronary artery disease GERD (gastroesophageal reflux disease) HTN (hypertension) Hyperlipidemia Lung nodules Prostate cancer Restless leg Streptococcus group B infection Surgical History History of ankle surgery History of appendectomy History of prostate surgery Hx of aortic valve repair Hx of ascending aorta replacement Hx of cataract surgery Hx of tonsillectomy S/P PTCA (percutaneous transluminal coronary angioplasty) Family History Brother Heart attack CAD (coronary artery disease) Chronic kidney disease (CKD) Stroke Father CAD (coronary artery disease) Stroke Sister Stroke Mother Stroke Other Heart disease Denies family history of Diabetes Clotting disorder Dementia Suicide Anesthesia complication Bleeding disorder Lung disease Cancer Social History Smoking and tobacco status: former smoker Second hand smoke exposure: Yes Smoking risk assessment/counseling performed?: Yes Alcohol intake: current Alcohol intake frequency: holidays/special occasions only Alcohol type: beer Counseling given: No Counseling given: Yes Lives independently: Yes Household members: spouse Marital status: Current occupational status: retired History of recent travel: No Current gender identity: Male Physical Exam Narrative: EXAM NARRATIVE: Head: Atraumatic Eyes: PERRL, conjunctiva without injection ENT: Mucous membrane moist NECK: Supple, ROM intact LUNGS: LCTAB, no crackles/rhonchi CV: RRR ABDOMEN: Soft, nontender in all quadrants EXTREMITY: 1/5 RUE, 1/5 RLE, 5/5 LUE, 5/5 LLE, sensations intact in all extremities, +R sided facial droop, no dysarthria or aphasia SKIN: No rash or erythema NEURO: Awake and alert, no focal motor deficits PSYCH: Normal mood and affect Course Vital Signs: Vital signs: Vital Signs Temperature 97.6 F 07/14/21 00:00 Pulse Rate 51 L 07/14/21 00:00 Respiratory Rate 18 07/14/21 00:00 Blood Pressure 174/70 07/14/21 00:00 Pulse Oximetry 93 07/14/21 00:00 MDM - General Adult MDM Narrative: Medical decision making narrative: 76-year-old male who presents the emergency room after right-sided hemiplegia. Patient is outside of TPA window. Patient has complete right-sided paralysis on exam. We will evaluate for whether patient meets criteria for mechanical thrombectomy. Case was discussed with Dr. Kenyon who agrees with plan Case signed out Dr. Tim Gillette at shift change Lab Data: Labs: Lab Results 07/11/21 07/11/21 07/11/21 22:20 22:20 22:20 WBC 7.9 10^3/uL 10^3/ uL (4.0-10.0) RBC 4.45 10^6/uL 10^6 /uL (4.1-5.3) Hgb 10.0 g/dL L g/dL (11.7-16.6) Hct 35.8 % L % (42.0-52.0) MCV 80.4 fl fl (80-94) MCH 22.5 pg L pg (28.0-34.0) MCHC 27.9 g/dL L g/dL (30.0-36.0) RDW 27.9 % H % (12.1-15.1) Plt Count 314 10^3/cmm 10^3 /cmm (130-400) MPV 9.2 fL fL (7.4-10.4) Neut % (Auto) 67.3 % % Lymph % (Auto) 16.7 % % [place] % (Auto) 7.6 % % Eos % (Auto) 7.5 % % Baso % (Auto) 0.8 % % Neut # (Auto) 5.33 10^3/uL 10^3 /uL (1.8-7.7) Lymph # (Auto) 1.3 10^3/uL 10^3/ uL (0.8-4.8) [place] # (Auto) 0.6 10^3/uL 10^3/ uL (0.2-0.9) Eos # (Auto) 0.6 10^3/uL 10^3/ uL (0.0-0.8) Baso # (Auto) 0.1 10^3/uL 10^3/ uL (0.0-0.1) Nucleated RBC % (a uto) 0 % % Nucleated RBCs # 0.0 /100WBC /100W BC PT 13.70 SECONDS SEC ONDS (12.1-14.9) INR 1.02 (0.8-1.2) APTT 27.9 SECONDS SECO NDS (23.9-36.7) Sodium 137 mmol/L mmol/L (136-145) Potassium 4.2 mmol/L mmol/L (3.5-5.1) Chloride 102 mmol/L mmol/L (98-107) Carbon Dioxide 26 mmol/L mmol/L (22-29) Anion Gap 13.2 (5-19) BUN 14 mg/dL mg/dL (8-23) Creatinine 1.3 mg/dL H mg/dL (0.7-1.2) GFR Calculation Not Reportable Glucose 322 mg/dL H mg/dL (65-115) Estimat Average Gl ucose Hemoglobin A1c Calculated Osmolal ity 297 mOsm/kg H mOs m/kg (285-295) Calcium 9.0 mg/dL mg/dL (8.5-10.5) Total Bilirubin 0.2 mg/dL mg/dL (0.15-1.2) AST 11 U/L U/L (0-40) ALT 9 U/L U/L (0-41) Alkaline Phosphata se 84 IU/L IU/L (40-130) Total Protein 6.4 g/dL L g/dL (6.6-8.7) Albumin 4.2 g/dL g/dL (3.5-5.2) Globulin 2.2 g/dL g/dL (1.3-4.6) Triglycerides Cholesterol LDL Cholesterol Di rect LDL Cholesterol, C alc HDL Cholesterol LDL/HDL Ratio Cholesterol/HDL Ra evonne 07/11/21 07/11/21 22:20 22:20 WBC RBC Hgb Hct MCV MCH MCHC RDW Plt Count MPV Neut % (Auto) Lymph % (Auto) [place] % (Auto) Eos % (Auto) Baso % (Auto) Neut # (Auto) Lymph # (Auto) [place] # (Auto) Eos # (Auto) Baso # (Auto) Nucleated RBC % (a uto) Nucleated RBCs # PT INR APTT Sodium Potassium Chloride Carbon Dioxide Anion Gap BUN Creatinine GFR Calculation Glucose Estimat Average Gl ucose 108 Hemoglobin A1c 5.4 % % (4.0-6.0) Calculated Osmolal ity Calcium Total Bilirubin AST ALT Alkaline Phosphata se Total Protein Albumin Globulin Triglycerides 419 mg/dL H mg/dL (0-150) Cholesterol 142 mg/dL mg/dL (0-200) LDL Cholesterol Di rect 56 mg/dL mg/dL (0-100) LDL Cholesterol, C alc Not Reportable HDL Cholesterol 33 mg/dL L mg/dL (60-100) LDL/HDL Ratio Not Reportable Cholesterol/HDL Ra evonne 4.30 mg/dL mg/dL (1.0-5.00) Discharge Plan Discharge Patient Disposition: Admitted As Inpatient Admit Provider: Renetta Dai Clinical Impression: Hemiparesis, Acute CVA (cerebrovascular accident), Acute ischemic stroke Condition: Stable Coding Level of Care Code ED Hand Therapist for Chg Fwd Documented by User: Tim Gillette DO 07/12/21 02:04 HPI - General Adult General: Chief complaint: Weakness Stated complaint: weakness on R leg and R hand Time Seen by Provider: 07/11/21 22:49 [facility] ED PFSH: Medical History Anxiety Cataract Chronic back pain Coronary artery disease GERD (gastroesophageal reflux disease) HTN (hypertension) Hyperlipidemia Lung nodules Prostate cancer Restless leg Streptococcus group B infection Surgical History History of ankle surgery History of appendectomy History of prostate surgery Hx of aortic valve repair Hx of ascending aorta replacement Hx of cataract surgery Hx of tonsillectomy S/P PTCA (percutaneous transluminal coronary angioplasty) Family History Brother Heart attack CAD (coronary artery disease) Chronic kidney disease (CKD) Stroke Father CAD (coronary artery disease) Stroke Sister Stroke Mother Stroke Other Heart disease Denies family history of Diabetes Clotting disorder Dementia Suicide Anesthesia complication Bleeding disorder Lung disease Cancer Social History Smoking and tobacco status: former smoker Second hand smoke exposure: Yes Smoking risk assessment/counseling performed?: Yes Alcohol intake: current Alcohol intake frequency: holidays/special occasions only Alcohol type: beer Counseling given: No Counseling given: Yes Lives independently: Yes Household members: spouse Marital status: Current occupational status: retired History of recent travel: No Current gender identity: Male Course Vital Signs: Vital signs: Vital Signs Temperature 97.6 F 07/14/21 00:00 Pulse Rate 51 L 07/14/21 00:00 Respiratory Rate 18 07/14/21 00:00 Blood Pressure 174/70 07/14/21 00:00 Pulse Oximetry 93 07/14/21 00:00 MDM - General Adult MDM Narrative: Medical decision making narrative: 76-year-old male checked out to me by Dr. Coello at shift change. This man has right-sided hemiparesis. He is likely had a stroke. His hemoglobin is 10. Creatinine 1.3. CT of the head shows no intracranial hemorrhage or swelling. CTA shows atherosclerosis that is significant with stenosis, but no intrarenal blood clot for thrombectomy. He was outside of the TPA window on arrival. Be admitted for continued stroke work-up. Lab Data: Labs: Lab Results 07/11/21 07/11/21 07/11/21 22:20 22:20 22:20 WBC 7.9 10^3/uL 10^3/ uL (4.0-10.0) RBC 4.45 10^6/uL 10^6 /uL (4.1-5.3) Hgb 10.0 g/dL L g/dL (11.7-16.6) Hct 35.8 % L % (42.0-52.0) MCV 80.4 fl fl (80-94) MCH 22.5 pg L pg (28.0-34.0) MCHC 27.9 g/dL L g/dL (30.0-36.0) RDW 27.9 % H % (12.1-15.1) Plt Count 314 10^3/cmm 10^3 /cmm (130-400) MPV 9.2 fL fL (7.4-10.4) Neut % (Auto) 67.3 % % Lymph % (Auto) 16.7 % % [place] % (Auto) 7.6 % % Eos % (Auto) 7.5 % % Baso % (Auto) 0.8 % % Neut # (Auto) 5.33 10^3/uL 10^3 /uL (1.8-7.7) Lymph # (Auto) 1.3 10^3/uL 10^3/ uL (0.8-4.8) [place] # (Auto) 0.6 10^3/uL 10^3/ uL (0.2-0.9) Eos # (Auto) 0.6 10^3/uL 10^3/ uL (0.0-0.8) Baso # (Auto) 0.1 10^3/uL 10^3/ uL (0.0-0.1) Nucleated RBC % (a uto) 0 % % Nucleated RBCs # 0.0 /100WBC /100W BC PT 13.70 SECONDS SEC ONDS (12.1-14.9) INR 1.02 (0.8-1.2) APTT 27.9 SECONDS SECO NDS (23.9-36.7) Sodium 137 mmol/L mmol/L (136-145) Potassium 4.2 mmol/L mmol/L (3.5-5.1) Chloride 102 mmol/L mmol/L (98-107) Carbon Dioxide 26 mmol/L mmol/L (22-29) Anion Gap 13.2 (5-19) BUN 14 mg/dL mg/dL (8-23) Creatinine 1.3 mg/dL H mg/dL (0.7-1.2) GFR Calculation Not Reportable Glucose 322 mg/dL H mg/dL (65-115) Estimat Average Gl ucose Hemoglobin A1c Calculated Osmolal ity 297 mOsm/kg H mOs m/kg (285-295) Calcium 9.0 mg/dL mg/dL (8.5-10.5) Total Bilirubin 0.2 mg/dL mg/dL (0.15-1.2) AST 11 U/L U/L (0-40) ALT 9 U/L U/L (0-41) Alkaline Phosphata se 84 IU/L IU/L (40-130) Total Protein 6.4 g/dL L g/dL (6.6-8.7) Albumin 4.2 g/dL g/dL (3.5-5.2) Globulin 2.2 g/dL g/dL (1.3-4.6) Triglycerides Cholesterol LDL Cholesterol Di rect LDL Cholesterol, C alc HDL Cholesterol LDL/HDL Ratio Cholesterol/HDL Ra evonne 07/11/21 07/11/21 22:20 22:20 WBC RBC Hgb Hct MCV MCH MCHC RDW Plt Count MPV Neut % (Auto) Lymph % (Auto) [place] % (Auto) Eos % (Auto) Baso % (Auto) Neut # (Auto) Lymph # (Auto) [place] # (Auto) Eos # (Auto) Baso # (Auto) Nucleated RBC % (a uto) Nucleated RBCs # PT INR APTT Sodium Potassium Chloride Carbon Dioxide Anion Gap BUN Creatinine GFR Calculation Glucose Estimat Average Gl ucose 108 Hemoglobin A1c 5.4 % % (4.0-6.0) Calculated Osmolal ity Calcium Total Bilirubin AST ALT Alkaline Phosphata se Total Protein Albumin Globulin Triglycerides 419 mg/dL H mg/dL (0-150) Cholesterol 142 mg/dL mg/dL (0-200) LDL Cholesterol Di rect 56 mg/dL mg/dL (0-100) LDL Cholesterol, C alc Not Reportable HDL Cholesterol 33 mg/dL L mg/dL (60-100) LDL/HDL Ratio Not Reportable Cholesterol/HDL Ra evonne 4.30 mg/dL mg/dL (1.0-5.00) Discharge Plan Discharge Patient Disposition: Admitted As Inpatient Admit Provider: Renetta Dai Clinical Impression: Hemiparesis, Acute CVA (cerebrovascular accident), Acute ischemic stroke Condition: Stable Coding Level of Care Code ED Hand Therapist for [place]
--- NOTE | 2021-07-12 02:02 | USCV_ITS ---
Ronni Torres Age: 76 Gender: M : 1945 Exam Date: 07/12/2021 06:43 Ordering Phys: Renetta Dai MD Technologist: Shwetha Lewis Exam Location: [facility] [place] Indication: CVA BP: / HR: 55 Rhythm: Sinus Technical Quality: Adequate MEASUREMENTS (Male / Female) Normal Values 2D ECHO LV Diastolic Diameter PLAX 4.2 cm 4.2 - 5.9 / 3.9 - 5.3 cm LV Systolic Diameter PLAX 2.3 cm LV Chamber Size 3.5 cm IVS Diastolic Thickness 1.3 cm 0.6 - 1.0 / 0.6 - 0.9 cm IVS Systolic Thickness 2.0 cm LVPW Diastolic Thickness 1.5 cm 0.6 - 1.0 / 0.6 - 0.9 cm LVPW Systolic Thickness 1.8 cm RV Chamber Size 3.0 cm LVOT Diameter 2.0 cm LV Ejection Fraction 2D Teich 76.0 % LV Ejection Fraction MOD 2C 69.3 % LV Ejection Fraction 2C AL 71.3 % LA Diameter 3.2 cm LA Width 3.0 cm LA Height 4.2 cm RA Width 4.0 cm RA Height 4.3 cm Aorta at Sinotubular Diameter 3.2 cm M-MODE LV Diastolic Diameter MM 5.9 cm 4.2 - 5.9 / 3.9 - 5.3 cm LV Systolic Diameter MM 3.6 cm LV Ejection Fraction MM Teich 67.9 % IVS Diastolic Thickness MM 1.2 cm 0.6 - 1.0 / 0.6 - 0.9 cm IVS Systolic Thickness MM 1.8 cm LVPW Diastolic Thickness MM 1.2 cm 0.6 - 1.0 / 0.6 - 0.9 cm LVPW Systolic Thickness MM 2.2 cm Aortic Annulus Diameter 3.1 cm LA Ao Ratio MM 1.2 MV E Point Septal Separation 0.4 cm DOPPLER AV Peak Velocity 141.0 cm/s LVOT Peak Velocity 119.0 cm/s AV Area Cont Eq vti 2.7 cm squared AV Area Cont Eq pk 2.6 cm squared MV Area PHT 3.9 cm squared Mitral E to A Ratio 1.3 MV E' Velocity 58.0 cm/s Mitral E to MV E' Ratio 9.2 Mitral E to LV E' Lateral Ratio 9.6 Mitral E to LV E' Septal Ratio 8.9 TR Peak Velocity 198.7 cm/s TR Peak Gradient 15.8 mmHg TR Mean Velocity 134.0 cm/s TR Mean Gradient 8.3 mmHg TR Velocity Time Integral 54.0 cm TV Peak E Velocity 57.0 cm/s Right Atrial Pressure 3.0 mmHg Pulmonary Artery Systolic Pressu 18.8 mmHg PV Peak Velocity 69.0 cm/s RV Acceleration Time 0.2 s RV Ejection Time 0.4 s RV AcT/ET 0.4 FINDINGS Left Ventricle Normal left ventricular cavity size. Normal left ventricular systolic function. No regional wall motion abnormalities. Left ventricular ejection fraction is estimated at 65 %. Grade II/IV diastolic dysfunction, moderately elevated filling pressures. Right Ventricle The right ventricle is normal in size and function. Right Atrium The right atrium is normal in size. Left Atrium The left atrium is normal in size. Mitral Valve Structurally normal mitral valve without significant stenosis or prolapse. There is no mitral regurgitation. Aortic Valve Moderate aortic valve calcification. No aortic valve stenosis. No aortic valve regurgitation. Tricuspid Valve Structurally normal tricuspid valve without significant stenosis or regurgitation. Pulmonary artery systolic pressure is normal. Pulmonic Valve Mild pulmonary valve regurgitation. Pericardium Normal pericardium without effusion. Aorta Normal ascending aorta dimension. CONCLUSIONS 1-Normal left ventricular cavity size. Normal left ventricular systolic function. No regional wall motion abnormalities. Left ventricular ejection fraction is estimated at 65 %. Grade II/IV diastolic dysfunction, moderately elevated filling pressures. 2-Moderate aortic valve calcification. No aortic valve stenosis. No aortic valve regurgitation. 3-Structurally normal mitral valve without significant stenosis or prolapse. There is no mitral regurgitation. 4-There is no pericardial effusion. 5-Pulmonary artery systolic pressure is within normal limits. 6-Right atrial pressure is around 5 mm of mercury. 7-No significant change since the prior echocardiogram study of 09/19/2015. Ondina Jones MD (Electronically Signed) Final Date: 12 July 2021 21:28 S
--- NOTE | 2021-07-12 02:16 | PM.HP ---
Providers/Chief Complaint Admitting Physician: Renetta Dai MD Primary Care Provider: Ra Orozco MD Chief Complaint: weakness on R leg and R hand History of Present Illness Ronni Torres is a 76 year old male with a past medical history of CAD on DAPT with ASA/Plavix, HTN, COPD, recently admitted to the hospital on June 24, 2021 for chest discomfort, found to have significant anemia with hemoglobin of 6.3 and blood work compatible with iron deficiency. Patient was transfused 4 units of packed red blood cells and further work-up recommended for the anemia, however patient elected to leave AMA the next day. He did not have any melena at the time. He presented to the emergency room today with chief complaint of right-sided weakness that started 6 hours prior to presentation. He was last seen normal at 4:30 PM by his family members. Moreover family reported that patient was confused with garbled speech with facial droop. CT head and CTA head did not reveal any acute abnormalities. He was out of tPA window. Review of Systems General: Reports: 10 or more systems reviewed and unremarkable except in HPI and below Const: Denies: fever(s), chills or body aches Eyes: Denies: change in vision, blurry vision or photophobia ENMT: Reports: hoarseness; Denies: throat pain, enlarged tonsils, odynophagia or nasal congestion Card: Denies: chest pain, palpitations, irregular heart rhythm, edema, swelling of feet/ankles, lightheadedness, pre-syncope, dyspnea on exertion or orthopnea Resp: Denies: dyspnea, productive cough, non-productive cough, wheezing, stridor, pain on inspiration, change in phlegm color, hemoptysis or chest congestion GI: Denies: abdominal pain, nausea, vomiting, hematemesis, coffee ground emesis, dysphagia, heartburn, diarrhea, constipation, GI cramping, change in stool character, hematochezia or melena : Denies: flank pain, dysuria, urinary frequency, urinary urgency, urinary hesitancy or hematuria Musc: Denies: neck pain, back pain, extremity pain, joint swelling, joint warmth or deformity Neuro: Denies: headache(s), numbness in extremities, weakness in extremities, sensory changes, difficulty walking, frequent falls, dizziness, vertigo, behavioral changes, Slurred speech present or seizure-like activity Psych: Denies: anxiety, depression, suicidal ideation or homicidal ideation Endo: Denies: polyuria, polydipsia, tired all the time, cold intolerance or hot flashes Didier/Lymph: Denies: easy bruising or easy bleeding Medications/Allergies Home Medications Medication Instructions Recorded Confirmed Last Taken Type albuterol sulfate [Ventolin HFA] 2 inh INHALATION Q6H PRN 09/07/20 06/24/21 09/07/20 History aspirin 81 mg PO DAILY 09/07/20 06/24/21 06/24/21 History carvedilol 12.5 mg PO BID 09/07/20 06/24/21 06/24/21 History clopidogrel 75 mg PO DAILY 09/07/20 06/24/21 06/24/21 History gabapentin 1,200 mg PO BEDTIME 09/07/20 06/24/21 06/23/21 History omeprazole 20 mg PO DAILY 09/07/20 06/24/21 06/24/21 History paroxetine HCl 10 mg PO DAILY 09/07/20 06/24/21 06/24/21 History simvastatin 20 mg PO DAILY 09/07/20 06/24/21 06/23/21 History tizanidine 4 mg PO BEDTIME 09/07/20 06/24/21 06/23/21 History glycopyrrolate 9 mcg-formoterol 2 puff INHALATION BID #10.7 g 05/19/21 06/24/21 06/24/21 Rx 4.8 mcg HFA aerosol inhaler varenicline 0.5 mg (11)-1 mg (42) See Rx Instructions PO PER PKG DIR 05/19/21 06/24/21 06/24/21 Rx tablets in a dose pack 30 Days #42 ea montelukast 10 mg PO DAILY 06/24/21 06/24/21 06/24/21 History Allergies Allergy/AdvReac Type Severity Reaction Status Date / Time diphenhydramine Allergy ADR-Shakine Verified 06/15/21 08:41 [From Benadryl] ss propoxyphene [From Darvon] Allergy Unconscious Verified 06/15/21 08:41 adhesive tape AdvReac ALGY-Rash Verified 06/15/21 08:41 PFSH Acute PFSH: Medical History Anxiety Cataract Chronic back pain Coronary artery disease GERD (gastroesophageal reflux disease) HTN (hypertension) Hyperlipidemia Lung nodules Prostate cancer Restless leg Streptococcus group B infection Surgical History History of ankle surgery History of appendectomy History of prostate surgery Hx of aortic valve repair Hx of ascending aorta replacement Hx of cataract surgery Hx of tonsillectomy S/P PTCA (percutaneous transluminal coronary angioplasty) Family History Brother Heart attack CAD (coronary artery disease) Chronic kidney disease (CKD) Stroke Father CAD (coronary artery disease) Stroke Sister Stroke Mother Stroke Other Heart disease Denies family history of Diabetes Clotting disorder Dementia Suicide Anesthesia complication Bleeding disorder Lung disease Cancer Social History Smoking and tobacco status: former smoker Second hand smoke exposure: Yes Smoking risk assessment/counseling performed?: Yes Alcohol intake: current Alcohol intake frequency: holidays/special occasions only Alcohol type: beer Counseling given: No Counseling given: Yes Lives independently: Yes Household members: spouse Marital status: Current occupational status: retired History of recent travel: No Current gender identity: Male Vitals/I&O/Wt Last Vital Signs Temp 98.3 F 07/11/21 22:10 Pulse 52 L 07/11/21 22:10 Resp 18 07/11/21 22:10 BP 179/51 07/11/21 22:10 Pulse Ox 98 07/11/21 22:10 Weight last 48 hrs Weight 70.76 kg Physical Exam Narrative: EXAM NARRATIVE: General: No acute distress, AO x2-3 HEENT: PERRLA, pupils bilaterally equal and reactive, pallors not present Chest: Normal vesicular breath sounds, no added sounds, equal good air entry bilaterally CVS: S1-S2 regular, no murmurs, no tachycardia, no gallops, no rubs Abdomen: Soft, nontender, no organomegaly, bowel sounds present Neuro: RUE and RLE 2/5, right facial droop+, left side power 5/5 Data : 07/11/21 22:20 07/11/21 22:20 Other Labs: Laboratory Results WBC 7.9 10^3/uL (4.0-10.0) 07/11/21 22:20 RBC 4.45 10^6/uL (4.1-5.3) 07/11/21 22:20 Hgb 10.0 g/dL (11.7-16.6) L 07/11/21 22:20 Hct 35.8 % (42.0-52.0) L 07/11/21 22:20 MCV 80.4 fl (80-94) 07/11/21 22:20 MCH 22.5 pg (28.0-34.0) L 07/11/21 22:20 MCHC 27.9 g/dL (30.0-36.0) L 07/11/21 22:20 RDW 27.9 % (12.1-15.1) H 07/11/21 22:20 Plt Count 314 10^3/cmm (130-400) 07/11/21 22:20 MPV 9.2 fL (7.4-10.4) 07/11/21 22:20 Neut % (Auto) 67.3 % 07/11/21 22:20 Lymph % (Auto) 16.7 % 07/11/21 22:20 [place] % (Auto) 7.6 % 07/11/21 22:20 Eos % (Auto) 7.5 % 07/11/21 22:20 Baso % (Auto) 0.8 % 07/11/21 22:20 Neut # (Auto) 5.33 10^3/uL (1.8-7.7) 07/11/21 22:20 Lymph # (Auto) 1.3 10^3/uL (0.8-4.8) 07/11/21 22:20 [place] # (Auto) 0.6 10^3/uL (0.2-0.9) 07/11/21 22:20 Eos # (Auto) 0.6 10^3/uL (0.0-0.8) 07/11/21 22:20 Baso # (Auto) 0.1 10^3/uL (0.0-0.1) 07/11/21 22:20 Nucleated RBC % (auto) 0 % 07/11/21 22:20 Nucleated RBCs # 0.0 /100WBC 07/11/21 22:20 PT 13.70 SECONDS (12.1-14.9) 07/11/21 22:20 INR 1.02 (0.8-1.2) 07/11/21 22:20 APTT 27.9 SECONDS (23.9-36.7) 07/11/21 22:20 Sodium 137 mmol/L (136-145) 07/11/21 22:20 Potassium 4.2 mmol/L (3.5-5.1) 07/11/21 22:20 Chloride 102 mmol/L (98-107) 07/11/21 22:20 Carbon Dioxide 26 mmol/L (22-29) 07/11/21 22:20 Anion Gap 13.2 (5-19) 07/11/21 22:20 BUN 14 mg/dL (8-23) 07/11/21 22:20 Creatinine 1.3 mg/dL (0.7-1.2) H 07/11/21 22:20 GFR Calculation Not Reportable 07/11/21 22:20 Glucose 322 mg/dL (65-115) H 07/11/21 22:20 Estimat Average Glucose 108 07/11/21 22:20 Hemoglobin A1c 5.4 % (4.0-6.0) 07/11/21 22:20 Calculated Osmolality 297 mOsm/kg (285-295) H 07/11/21 22:20 Calcium 9.0 mg/dL (8.5-10.5) 07/11/21 22:20 Total Bilirubin 0.2 mg/dL (0.15-1.2) 07/11/21 22:20 AST 11 U/L (0-40) 07/11/21 22:20 ALT 9 U/L (0-41) 07/11/21 22:20 Alkaline Phosphatase 84 IU/L (40-130) 07/11/21 22:20 Total Protein 6.4 g/dL (6.6-8.7) L 07/11/21 22:20 Albumin 4.2 g/dL (3.5-5.2) 07/11/21 22:20 Globulin 2.2 g/dL (1.3-4.6) 07/11/21 22:20 Triglycerides 419 mg/dL (0-150) H 07/11/21 22:20 Cholesterol 142 mg/dL (0-200) 07/11/21 22:20 LDL Cholesterol Direct 56 mg/dL (0-100) 07/11/21 22:20 LDL Cholesterol, Calc Not Reportable 07/11/21 22:20 HDL Cholesterol 33 mg/dL (60-100) L 07/11/21 22:20 LDL/HDL Ratio Not Reportable 07/11/21 22:20 Cholesterol/HDL Ratio 4.30 mg/dL (1.0-5.00) 07/11/21 22:[address] 07/11/21 22:49 IMPRESSION: 1. No acute findings. Interval slight worsening of the chronic ischemic changes. 2. Inferior left mastoid disease again evident. Continued chronic sinus disease. Radiation Dose CTDIVOL = (mGy): DLP = 934.72 (mGy-cm) Head/Neck CTA 07/11/21 22:49 IMPRESSION: 1. Prominent stenoses in the left common carotid and both internal carotid and vertebral arteries detailed above. 2. Marked emphysema. 6 mm noncalcified nodule in the left upper lobe. For patients at low risk (minimal or absent history of smoking and of other known risk factors), recommend CT Chest at 6-12 months, then consider CT Chest at 18-24 months. For patients at high risk (history of smoking or of other known risk factors), recommend CT Chest at 6-12 months, then CT Chest at 18-24 months. (Reference: Rosemarie) 3. Multilevel degenerative disease in the spine and other findings detailed above. REFERENCES: 1. Rosemarie H, et al. Guidelines for Management of Incidental Pulmonary Nodules Detected on CT Images: From the Fleischner Society 2017. Radiology. 2017;284(1):228-243. 2. NASCET CRITERIA. The degree of internal carotid artery stenosis is based on NASCET criteria. Normal is no stenosis. Mild is less than 50% stenosis. Moderate is 50-69% stenosis. Severe is 70% to 99% stenosis. Total occlusion is no detectable patent lumen. Radiation Dose CTDIVOL = (mGy): DLP = 2504.55~2504.55 (mGy-cm) A&P Assessment and plan (1) Acute ischemic stroke: presenting today with right side hemiparesis, right facial droop, clinical findings c/w acute CVA CT head without acute abnormaities, CTA neck with prominent stenoses in the left common carotid and both internal carotid, no acute stenosis amenable to endovascular intervention Out of tPA [place] upon arrival Admit to med/surg for stroke evaluation telemetry monitoring 2d echocardioam Continue ASA 81mg po daily, Plavix 75mg po daily recent;y admitted for anemia with hb 6.3, today HB better at 10 check FOBT as plan to continue DAPT PT/OT/speech eval Allowing for permissive HTN with SBP up to 200mmhg Status: Acute (2) Iron deficiency: Status: Acute (3) Anemia: Attestations Medical Necessity Statement*: anticipate >2midnigght admission for above defined care Coding Level of Care Code Acute 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
[2021-07-12 03:04] LABS: Cholesterol 142 mg/dL (0-200); HDL Cholesterol 33 mg/dL (60-100); Triglycerides 419 mg/dL (0-150)
[2021-07-12 03:22] LABS: Estmated Average Glucose 108; Hemoglobin A1C 5.4 % (4.0-6.0)
[2021-07-12 03:29] LABS: LDL Cholesterol Direct 56 mg/dL (0-100)
--- NOTE | 2021-07-12 03:31 | PC.NURSE ---
i reported high reps 20 and low pulse 55 to nurse
[2021-07-12] MEDS: acetaminophen 325 mg Tablet 650 MG PO ×2 (05:42→19:08)
--- NOTE | 2021-07-12 09:10 | PC.CHAP ---
Pastoral Care Encounter/Spiritual Assessment Type of Contact [] Declined political director visit [] Patient/Family/Request visit [] Outpatient visit [] Follow-up visit [] Physician referral [] Code/Alert [x] Routine visit [] Staff referral [] Actively dying [] Patient sleeping [] Family support [] [] Out of room [] Palliative care [] [] Receiving care in room [] Pre-surgical visit [] Trauma [] Long length of stay [] ICU visit [] Other: Relational/Emotional Strength [x] Patient feels connected with others/family/visitors/staff [] Distress [] Loneliness/isolation [] Abandonment Spirituality of Patient [x] Person of Tere [x] Attends Lutheran of their Tere x[] Believes in Prayer [] Reads Bible or Quaker materials [] There are Spiritual issues to be addressed Grounds Supervisor Interventions [x] Prayer [x] Active listening [x ] Non-anxious presence [] Spiritual/emotional support [] Crisis/trauma care [] Spiritual counseling [] Bereavement support [] Provided bereavement packet [] Provided Bible/devotional materials [] Provided toy/stuffed animal, coloring book to patient or family member [] Provided Communion [] Anointing/[place] [] Salvation [] Completed spiritual assessment [] Other: Impact on Illness or Injury [] Angry [] Fearful [] Anxious [] Often cries [] Exhaustion [] Unable to work [] Unable to attend mandaeism [] Unable to walk/stand [] Unable to read [] Unable to drive [] Unable to eat/drink [] Unable to sleep [] Unable to be with family [] Patient intubated [] Other: Summary Time spent with patient 10 min
[2021-07-12] MEDS: aspirin 81 mg EC Tablet PO (09:25)
[2021-07-12] MEDS: carvedilol 12.5 mg Tablet PO ×2 (09:25→17:59)
[2021-07-12] MEDS: PARoxetine 20 mg Tablet 10 MG PO (09:25)
[2021-07-12] MEDS: atorvastatin 40 mg Tablet 20 MG PO (09:25)
[2021-07-12] MEDS: pantoprazole DR 40 mg Tablet PO (09:26)
[2021-07-12] MEDS: clopidogrel 75 mg Tablet PO (09:26)
--- NOTE | 2021-07-12 09:37 | PC.PHAR ---
pt states his helps him with his medications and to call her-pts britany verified pts medications entered-pts states the pt no longer takes montelukast ext med history shows last filled on 02/17/21 90d/s-pts states the pt has 4 tabs left of the verenicline 1mg left ext med history shows last filled 05/19/21 23d/s
--- NOTE | 2021-07-12 11:49 | P.PN_ITS ---
Vitals/I&O/Wt Last Vital Signs Temp 98 F 07/12/21 07:56 Pulse 56 L 07/12/21 10:13 Resp 18 07/12/21 10:13 BP 180/71 07/12/21 07:56 Pulse Ox 96 07/12/21 10:13 07/11/21 07/12/21 07/12/21 22:59 06:59 14:59 Intake Total 120 / 120 Output Total 400 / 400 Balance 120 / 120 -400 / -400 Weight last 48 hrs Weight 72.575 kg Weight 70.76 kg Physical Exam Narrative: EXAM NARRATIVE: Accompanied by at bedside. Const: COMMON NORMALS: no acute distress and patient oriented x3 HENMT: COMMON NORMALS: oropharynx normal Neck/C-Spine: COMMON NORMALS: no JVD Resp: COMMON NORMALS: normal respiratory effort and clear to auscultation bilaterally AUSCULTATION: clear to auscultation bilaterally Cardio: COMMON NORMALS: no JVD, regular rhythm, S1 normal heart sound present, S2 normal heart sound present and No murmurs present (Cardio) RHYTHM: regular rhythm HEART SOUNDS: S1 normal heart sound present and S2 normal heart sound present GI: COMMON NORMALS: Normal to inspection, nondistended, normoactive bowel sounds present, Soft to palpation and non-tender PALPATION: Yes Soft to palpation Extremity: COMMON NORMALS: no joint enlargement and no pedal edema Neuro: COMMON NORMALS: patient oriented x3 OTHER: Tracking. Minimal aphasi a if any. Cannot assess visual morales due to surgical pupils needing reassessment by ophthalmology as per patient and . Right side hemiparesis, right side sensory loss. Right-sided facial droop. On the left no pronator drift. FNF normal. Babinski negative bilaterally. Skin: COMMON NORMALS: no rashes or lesions noted GENERAL SKIN EXAM: no rashes or lesions noted Data : 07/11/21 22:20 07/11/21 22:20 A&P Assessment and plan (1) Acute ischemic stroke: Hemiparesis right side, right side diminished sensation, right-sided facial droop. For now n.p.o. pending ST evaluation. Underwent TTE. Requesting cardiac monitoring as well. Discussed with him and his regarding abnormalities noted with multiple stenosis in internal carotid arteries. At this time continue aspirin, Plavix. Monitor for A. fib. Discussed follow-up with neurology, cardiovascular surgery. We will need continued therapy after discharge as well. He is adamant would not want to go to SNF. For now permissive hypertension. Monitor blood pressures, subsequently discussed with him close monitoring at home, optimization of risk factors of additional CVA. He states he has quit smoking, encouraged him to continue to abstain. Status: Acute (2) Iron deficiency: Status: Acute (3) Lung nodules: Noted 6 mm noncalcified nodule in left upper lobe. Follow-up with PCP. Consider follow-up imaging at 6-12 months. Status: Acute Attestations Medical Necessity Statement*: Continue assessment and management of acute CVA. Coding Level of Care Code Acute Cavalry Officer for [place] [facility] Diagnoses Acute ischemic stroke I63.9 Iron deficiency E61.1 Lung nodules R91.8
--- NOTE | 2021-07-12 14:00 | PC.RESP ---
PULMONARY REHAB INFORMATION SENT TO PATIENT.
[2021-07-12] MEDS: gabapentin 300 mg Capsule 600 MG PO (20:00)
[2021-07-12] MEDS: tizanidine 4 mg Tablet PO (21:23)
--- NOTE | 2021-07-12 22:08 | PC.NURSE ---
Pt has had increased leg pain throughout night. consulted hospitalist alexandra richards. Patient states If we do not get this under control he will go home.
[2021-07-12] MEDS: HYDROcodone-acetaminophen 5-325 mg Tablet 1 TAB PO (22:28)
--- NOTE | 2021-07-12 23:50 | PC.NURSE ---
Hydrocodone gave relief for leg pain. Pt is now requesting something for sleep.
[2021-07-13] VITALS (14 sets, daily range): BP systolic 115–209; BP diastolic 56–76; PULSE 45–76; RESP 16–18; TEMP 36.3–36.8; O2SAT 93–96
[2021-07-13 06:15] LABS: Anion Gap 14.1 (5-19); Blood Urea Nitrogen 13 mg/dL (8-23); Calcium 9.1 mg/dL (8.5-10.5); Carbon Dioxide 25 mmol/L (22-29); Chloride 104 mmol/L (98-107); Glucose 103 mg/dL (65-115); Osmolality Calculated 288 mOsm/kg (285-295); Potassium 4.1 mmol/L (3.5-5.1); Sodium 139 mmol/L (136-145)
--- NOTE | 2021-07-13 08:06 | PC.NURSE ---
reported the bp to the nurse. 190/72
[2021-07-13] MEDS: carvedilol 12.5 mg Tablet PO (08:09)
[2021-07-13] MEDS: atorvastatin 40 mg Tablet 20 MG PO (08:09)
[2021-07-13] MEDS: aspirin 81 mg EC Tablet PO (08:09)
[2021-07-13] MEDS: pantoprazole DR 40 mg Tablet PO (08:09)
[2021-07-13] MEDS: clopidogrel 75 mg Tablet PO (08:09)
[2021-07-13] MEDS: PARoxetine 20 mg Tablet 10 MG PO (08:10)
[2021-07-13 11:33] LABS: Glucose Point of Care 128 mg/dL (70-110)
--- NOTE | 2021-07-13 11:39 | XR_ITS ---
WS: [id number] Exam: XR chest 1V portable [id number] Date/Time of Exam: 07/13/2021 11:51 AM Reason For Exam: POSS. ASPIRATION Comparison 06/24/2021. The lungs are fully expanded. Small area of plaque atelectasis in the mid right lung. Normal cardiome diastinal structures. Bilateral apical pleural thickening and scarring noted. Regional bony elements are intact. XR/XR chest 1V portable [id number] IMPRESSION: 1. Small area of atelectasis in the mid right lung. 2. No acute process is noted.
--- NOTE | 2021-07-13 11:40 | CT_ITS ---
WS: [id number] CT HEAD NONCONTRAST HISTORY: MENTAL STATUS CHANGE TECHNIQUE: Contiguous axial imaging performed through the brain in 2.5 mm imaging. Bone and soft tiss ue windows. Sagittal and coronal reformats reviewed. All CT scans at [facility] use at least one of these dose optimization techniques: automated exposure control; mA and/or kV adjustment per pa tient size (includes targeted exams where dose is matched to clinical indication); or iterative recon struction. DLP: 1032.74 mGy.cm COMPARISON: 07/11/2021 Progression of the subacute infarct involving the LEFT samayoa radiata. Nonhemorrhagic infarct. There are additional small lacunar infarcts in the LEFT basal ganglia. Prominent perivascular space along t he inferior RIGHT basal ganglia. Mild chronic microvascular ischemic changes throughout the white mat ter. Very mild cerebral atrophy. Ventricles: Normal size with no hydrocephalus. Paranasal sinuses: Mucoperiosteal thickening in the frontal and ethmoid air cells. No air-fluid level s. Mastoid air cells: Well pneumatized. Calvarium and scalp: Skull is intact with no soft tissue edema or swelling. CT/CT head wo con* [id number] IMPRESSION: 1. No acute intracranial hemorrhage. 2. Progression of the subacute infarct involving the LEFT samayoa radiata. Infa rct is more apparent than it was on 07/11/2021 with an evolving infarct. 3. Otherwise small lacunar infarcts, mild atrophy and chronic ischemic disease are stable.
[2021-07-13 13:28] LABS: Add Urine Microscopic? NO; Charge for UA Resulting for Rev
[2021-07-13 13:42] LABS: Bilirubin Urine Neg (Negative); Blood Urine Neg (Negative); Glucose Urine UA Norm (Normal); Ketones Urine Negative (Negative); Leukocyte Esterase Urine Negative (Negative); Nitrate Urine Negative (Negative); Protein Urine Neg (Negative); Urine Appearance Clear (CLEAR); Urine Color Yellow (Yellow); Urobilinogen Urine Norm (Negative); pH Urine 8 (5-7)
[2021-07-13 13:43] LABS: Sulfosalicylic Acid Urine Negative (Negative)
--- NOTE | 2021-07-13 13:43 | PC.SLP ---
SEMICONDUCTOR BONDER attempted to work with the pt, however, the pt was lethargic, was unable to speak intelligibly and was unable to follow commands. Nursing and physician aware.
--- NOTE | 2021-07-13 13:45 | PC.OT ---
OT TREATMENT ATTEMPTED. AND ANOTHER VISITOR PRESENT. THEY REPORT THAT THE PATIENT IS NOT RESPONDING; CALL LIGHT TURNED ON; REPORTS THAT THE NURSE IS AWARE. THIS THERAPIST ATTEMPTED TO AROUSE THE PATIENT AND WAS UNSUCCESSFUL. IN AGREEMENT THAT NURSE WILL SPEAK WITH DAUGHTER; REQUESTS HOLD THERAPY TODAY.
[2021-07-13 14:24] LABS: Amphetamines Screen Urine Negative (Negative); Barbiturates Screen Urine Negative (Negative); Benzodiazepines Screen Urine Negative (Negative); Cocaine Screen Urine Negative (Negative); Opiate Screen Urine Positive (Negative); PCP Screen Urine Negative (Negative); THC Screen Urine Positive (Negative)
[2021-07-13] MEDS: acetaminophen 1,000 MG/100 ML PIGGYBACK 400 MG IV (15:01)
[2021-07-13 17:08] LABS: Glucose Point of Care 107 mg/dL (70-110)
[2021-07-13] MEDS: carvedilol 25 mg Tablet PO (18:35)
[2021-07-13] MEDS: HYDROcodone-acetaminophen 5-325 mg Tablet 1 TAB PO (21:12)
[2021-07-13] MEDS: gabapentin 300 mg Capsule 600 MG PO (21:12)
[2021-07-13] MEDS: tizanidine 4 mg Tablet PO (21:12)
--- NOTE | 2021-07-13 21:38 | P.PN_ITS ---
Subjective Subjective: Interval history: This morning initially doing similarly to yesterday, with persistent right side hemiparesis, however, subsequently difficult to arouse, lethargic, following commands, however, nodding to communicate but not speaking, follow-up CT scan obtained. Vitals/I&O/Wt Last Vital Signs Temp 97.8 F 07/13/21 20:00 Pulse 50 L 07/13/21 20:00 Resp 18 07/13/21 20:00 BP 180/72 07/13/21 20:00 Pulse Ox 93 07/13/21 20:00 07/13/21 07/13/21 07/13/21 06:59 14:59 22:59 Intake Total 240 / 240 120 / 120 100 / 220 Output Total 750 / 1525 600 / 600 300 / 900 Balance -510 / -1285 -480 / -480 -200 / -680 Weight last 48 hrs Weight 72.575 kg Weight 70.76 kg Physical Exam Const: COMMON NORMALS: no acute distress and patient oriented x3 HENMT: COMMON NORMALS: oropharynx normal Neck/C-Spine: COMMON NORMALS: no JVD Resp: COMMON NORMALS: normal respiratory effort and clear to auscultation bilaterally AUSCULTATION: clear to auscultation bilaterally Cardio: COMMON NORMALS: no JVD, regular rhythm, S1 normal heart sound present, S2 normal heart sound present and No murmurs present (Cardio) RHYTHM: regular rhythm HEART SOUNDS: S1 normal heart sound present and S2 normal heart sound present GI: COMMON NORMALS: Normal to inspection, nondistended, normoactive bowel s ounds present, Soft to palpation and non-tender PALPATION: Yes Soft to palpation Extremity: COMMON NORMALS: no joint enlargement and no pedal edema Neuro: COMMON NORMALS: patient oriented x3 OTHER: Not consistently follow commands, lethargic, tracking. Noted possible severe aphasia, although difficul t to assess given overall poor responsiveness. Cannot assess visual morales due to surgical pupils needing reassessment by ophthalmology as per patient and . Right side hemiparesis, right side sensory loss. Right-sided facial droop. Skin: COMMON NORMALS: no rashes or lesions noted GENERAL SKIN EXAM: no rashes or lesions noted Data : 07/11/21 22:20 07/13/21 04:58 A&P Assessment and plan (1) Acute ischemic stroke: Poorly responsive, difficult to awake after nap this morning/afternoon. Repeated CT scan, obtain chest x-ray, UA. CT with noted evolution of his left side CVA in the samayoa radiata. Waxing and waning symptoms may be expected. Subsequently this afternoon awake, requesting for food. At this time given tenuous perfusion with multifocal stenoses in carotid, vertebral arteries bilaterally, will continue to allow hypertension. Discontinue carvedilol. Will give infusion of LR. Continue to monitor in the hospital. Continue aspirin, Plavix. Monitor for A. fib. Follow-up with neurology who may consider referral to vascular surgery. Will need continued therapy after discharge as well. He is adamant would not want to go to SNF. For now permissive hypertension. Monitor blood pressures, subsequently discussed with him close monitoring at home, optimization of risk factors of additional CVA. He states he has quit smoking, encouraged him to continue to abstain. Status: Acute (2) Iron deficiency: Status: Acute (3) Lung nodules: Noted 6 mm noncalcified nodule in left upper lobe. Follow-up with PCP. Consider follow-up imaging at 6-12 months. Status: Acute Attestations Medical Necessity Statement*: Continue admission for assessment of management of left side coronary artery CVA with evolution, transient worsening of symptom s. Coding Level of Care Code Acute Survey Project Manager for [place] [facility] Diagnoses Acute ischemic stroke I63.9 Iron deficiency E61.1 Lung nodules R91.8
[2021-07-14] VITALS: BP 174/70; PULSE 51; RESP 18; TEMP 36.4; O2SAT 93
--- NOTE | 2021-07-14 01:16 | PC.NURSE ---
PATIENT STATED HE WAS HAVING LEG CRAMPS AND PAIN. THIS NURSE HAD ALREADY ADMINISTERED PAIN AND MUSCLE SPASM MEDICATIONS. THIS NURSE NOTIFIED DR. KAMINSKI AND ORDERS WAS PUT IN FOR LACTATED RINGERS. THIS NURSE ENTERED ROOM AND EXPLAINED TO PATIENT THAT THE DR HAD ORDERED FLUIDS, PATIENT STATED NOPE, NOT GOING TO HAPPEN! THIS NURSE ASKED WHY AND EDUCATED PATIENT ON IMPORTANCE OF ADHERING TO DOCTORS ORDERS. PATIENT ASKED WHAT THE DRS NAME WAS, THIS NURSE REPLIED WITH DR. KAMINSKI AND PATIENT STATED HE WOULD BE CHECKING HIMSELF OUT OF HERE TOMORROW. THIS NURSE LEFT THE LACTATED RINGERS ON THE IV POLE WITH TUBING PRIMED AND RAN THROUGH PUMP, WITH PUMP SHUT OFF. THIS NURSE NOTIFIED DR KAMINSKI AND CHARGE NURSE OF PATIENT REFUSAL OF FLUIDS.
[2021-07-14 04:00] VITALS: BP 182/76; PULSE 48; RESP 18; TEMP 36.4; O2SAT 96
--- NOTE | 2021-07-14 04:55 | PC.NURSE ---
PATIENT TOOK OFF TELEMETRY, REFUSING TO LET STAFF REAPPLY PADS OR PLACE MONITOR ON BODY.
[2021-07-14 09:12] VITALS: BP 205/71; PULSE 45; RESP 16; TEMP 36.4; O2SAT 95
[2021-07-14] MEDS: pantoprazole DR 40 mg Tablet PO (09:25)
[2021-07-14] MEDS: clopidogrel 75 mg Tablet PO (09:25)
[2021-07-14] MEDS: atorvastatin 40 mg Tablet 20 MG PO (09:26)
[2021-07-14] MEDS: aspirin 81 mg EC Tablet PO (09:26)
[2021-07-14] MEDS: PARoxetine 20 mg Tablet 10 MG PO (09:26)
[2021-07-14 09:30] VITALS: PULSE 55; RESP 18; O2SAT 96
--- NOTE | 2021-07-14 10:08 | PC.NURSE ---
Patient is refusing telemetry. States that he will go home today with or without seeing the physician.
--- NOTE | 2021-07-14 10:53 | PC.OT ---
OT TREATMENT ATTEMPTED. PATIENT REPORTS, MY NERVES (ANXIETY) ARE BAD; I WANT TO GO HOME; I DON'T WANT TO IN THE HOSPITAL. I HAVE TOO MANY THINGS WRONG WITH ME AND I AM GOING TO . VERBALLY REVIEWED UE HEP WITH PATIENT AND HE VERBALIZED UNDERSTANDING BUT DID NOT WANT TO PERFORM. STATES, THANK YOU FOR BEING SO NICE BUT I'M TOO TIRED . NURSE CALL PLACED IN REACH AND PATIENT ENCOURAGED TO USE IF NEEDS ANYTHING.
[2021-07-14 11:42] LABS: Glucose Point of Care 194 mg/dL (70-110)
--- NOTE | 2021-07-14 12:02 | PC.NURSE ---
This nurse confirms the care and documentation were completed by the student nurse.
[2021-07-14 12:08] VITALS: PULSE 55; RESP 18; O2SAT 96
--- NOTE | 2021-07-14 14:10 | PM.DCS ---
Discharge Providers Date of Admission: 07/12/21 02:17 Date of Discharge: July 14, 2021 Attending Provider at Admission: Renetta Dai MD Attending Provider at Discharge: Andrea Weiss Primary Care Provider: Ra Castillo MD Diagnoses at Discharge Discharge Diagnosis (1) Acute ischemic stroke: Status: Acute (2) Iron deficiency: Status: Acute (3) Lung nodules: Status: Acute Reason for Visit Reason for Visit: weakness on R leg and R hand Hospital Course Hospital Course Ronni Torres is a 76 year old male with a past medical history of CAD on DAPT with ASA/Plavix, HTN, COPD, recently admitted to the hospital on June 24, 2021 for chest discomfort, found to have significant anemia with hemoglobin of 6.3 and blood work compatible with iron deficiency. Patient was transfused 4 units of packed red blood cells and further work-up recommended for the anemia, however patient elected to leave AMA the next day. He did not have any melena at the time. He presented to the emergency room today with chief complaint of right-sided weakness that started 6 hours prior to presentation. He was last seen normal at 4:30 PM by his family members. Moreover family reported that patient was confused with garbled speech with facial droop. CT head and CTA head did not reveal any acute abnormalities. He was out of tPA window. He was maintained on permissive hypertension without escalation of blood pressure therapy on his usual carvedilol 12.5 mg dose with which blood pressures were up into 170s and occasionally as high as 200s systolic. Worsening chronic ischemic changes noted on CT head, left mastoid disease incidentally noted, chronic sinusitis. CT angiogram head and neck, however, revealed multiple stenosis in left common carotid artery, as well as both internal carotid arteries with narrowing of 80% at origin of left internal carotid artery, 70-80% at origin of right internal carotid artery, as well as moderate stenosis of proximal right vertebral artery, 70-80% stenosis at origin of left vertebral artery. He was continued on aspirin, Plavix, statin dose was escalated to high intensity. Echocardiogram showed normal ejection fraction, grade 2 diastolic dysfunction, moderate aortic valve calcification. A1c was noted to 5.4. He was assessed by PT, OT, speech therapy due to right side hemiparesis, right-sided sensory loss, right side facial droop. He had categorically declined to consider post discharge rehabilitation at [facility] when offered. Symptoms were initially stable, however, noted waxing and waning symptoms with transient worsening of weakness on the right side, as well as also transient difficulty in communicating and aphasia noted after episode of difficulty to awaken on the morning of 07/13. CT of the head repeated this time showed progression of subacute infarct involving left samayoa radiata, more apparent compared to 07/11 with an evolving infarct. Otherwise small lacunar infarcts, mild atrophy and chronic ischemic changes unchanged. He was additionally started on IV fluid hydration to help maintain perfusion. Antihypertensives were discontinued entirely at that time. His condition improved again later that evening, he was up in chair, requesting for dinner. This morning blood pressure noted 205/71. However, he had difficulty with obtaining pain medication overnight, and this morning has decided did not want to have any additional medical care in the hospital and to leave AGAINST MEDICAL ADVICE. We had a detailed discussion with him and his with regards to his precarious situation with multifocal atherosclerotic changes with multiple vessels narrowed that are supposed to supply his brain at risk of hypoperfusion, and at the same time currently very elevated blood pressure, both putting him at risk of either further ischemia/stroke or other complications risking severe disability or . We discussed that we encouraged him to stay to continue cautious optimization of his blood pressure avoiding hypoperfusion, with subsequent referral for follow-up with neurology and consideration follow-up with vascular surgery. He verbalized understanding and still declined any further assessment or treatment in the hospital. He does state that his right side power has improved somewhat in the upper extremity, but not lower. He and his understand to return to the hospital at any time to continue care, seek medical attention immediately in case of any worsening of symptoms especially associated with blood pressure decreases, and to seek reevaluation with primary provider at soonest available opportunity. He is referred for follow-up with neurology as well who may help determine further risk versus benefit of pursuing additional revascularization. He is asked to continue aspirin and Plavix. We increased his statin dose to high intensity atorvastatin. Long-term he will need continued optimization of blood pressure control, but this will need to be done very cautiously currently due to risk of hypoperfusion. Avoid also increasing carvedilol dose as his heart rates noted on the low side in the 50s. Please follow-up with regards to any additional needs as his discharge occurred on short notice. We did not have sufficient time to make arrangements for home health. Please continue follow-up with regards to lung nodules, discussed with him incidentally noted 6 mm noncalcified nodule in left upper lobe. Consider reimaging in 6-12 months. Follow-up thyroid function with noted recently elevated TSH. Physical Exam Narrative: EXAM NARRATIVE: later at bedside. Const: COMMON NORMALS: no acute distress and patient oriented x3 HENMT: COMMON NORMALS: oropharynx normal Neck/C-Spine: COMMON NORMALS: no JVD Resp: COMMON NORMALS: normal respiratory effort and clear to auscultation bilaterally AUSCULTATION: clear to auscultation bilaterally Cardio: COMMON NORMALS: no JVD, regular rhythm, S1 normal heart sound present, S2 normal heart sound present and No murmurs present (Cardio) RHYTHM: regular rhythm HEART SOUNDS: S1 normal heart sound present and S2 normal heart sound present GI: COMMON NORMALS: Normal to inspection, nondistended, normoactive bowel sounds present, Soft to palpation and non-tender PALPATION: Yes Soft to palpation Extremity: COMMON NORMALS: no joint enlargement and no pedal edema Neuro: COMMON NORMALS: patient oriented x3 OTHER: No aphasia. Awake, alert, sitting up in chair, dressed, street shoes on, belongings back, ready to leave. Persistent right-sided hemiplegia, although some improvement in right upper extremity power with effort in the right arm against gravity. Right lower extremity unchanged. Right facial droop. Skin: COMMON NORMALS: no rashes or lesions noted GENERAL SKIN EXAM: no rashes or lesions noted Discharge Data Data Completed and Pending: Completed Studies During Hospitalization Category Date Time Status CT angio headneck * [id number] Stat Cat Scan 07/11/21 22:[address] head wo con* 7 0450 Stat Cat Scan 07/11/21 22:[address] head wo con* 7 0450 Stat Cat Scan 07/13/21 11:40 Completed CXRP [XR chest 1V portable [id number]] S tat Exams 07/13/21 11:39 Completed CV. echo complete * [id number] Routine Ultrasound 07/12/21 02:02 Completed Labs from last 24 hours 07/14/21 07/13/21 07/13/21 11:38 17:05 12:53 POC Glucose 194 H 107 Urine Opiates Scre en Positive H Ur Barbiturates Sc reen Negative Ur Phencyclidine S crn Negative Ur Amphetamines Sc reen Negative U Benzodiazepines Scrn Negative Urine Cocaine Scre en Negative U Marijuana (THC) Screen Positive H Vitals: Last Vital Signs Temp 97.6 F 07/14/21 09:12 Pulse 55 L 07/14/21 12:08 Resp 18 07/14/21 12:08 BP 205/71 07/14/21 09:12 Pulse Ox 96 07/14/21 12:08 Discharge Plan Discharge Patient Disposition: Home Condition: Stable Prescriptions: New atorvastatin 80 mg tablet 80 mg PO DAILY Qty: 60 RF: 0 Continued Bevespi Aerosphere 9-4.8 mcg HFA aerosol inhaler 2 puff inhalation BID Qty: 10.7 RF: 3 gabapentin 600 mg tablet 600 - 1,200 mg PO BEDTIME RF: 0 paroxetine HCl 10 mg tablet 10 mg PO QAM RF: 0 carvedilol 12.5 mg tablet 12.5 mg PO BID RF: 0 tizanidine 4 mg tablet 4 mg PO BEDTIME RF: 0 clopidogrel 75 mg tablet 75 mg PO QAM RF: 0 omeprazole 20 mg capsule,delayed release(DR/EC) 20 mg PO QAM RF: 0 albuterol sulfate [Ventolin HFA] 90 mcg/actuation HFA aerosol inhaler 2 inh INHALATION Q6H PRN (Reason: Shortness Of Breath) RF: 0 multivitamin Tablet 1 tab PO QAM RF: 0 Vitamin B-12 1,000 mcg Tablet 2,000 mcg PO QAM RF: 0 aspirin 81 mg Tablet,Delayed Release (Dr/Ec) 81 mg PO QAM RF: 0 iron 325 mg (65 mg iron) Tablet 325 mg PO QAM RF: 0 budesonide 0.5 mg/2 mL suspension for nebulization 0.5 mg inhalation BID PRN (Reason: Shortness Of Breath Or Wheezing) RF: 0 varenicline 1 mg tablet 1 mg PO BID RF: 0 Robhots(1,000mg Cbd 100mg Phf) See Rx Instructions .ROUTE .COMPLEX RF: 0 Discontinued simvastatin 20 mg tablet 20 mg PO QAM RF: 0 Discharge Orders: Discharge Order (Routine); Ordered 07/14/21 Ordered By: Andrea Weiss Referrals: [facility] [Provider Group] - 07/30/21 3:30 pm (CVA) RA CASTILLO MD [Primary Care Provider] - 07/21/21 11:30 am (APPOINTMENT IN [place] [phone]) Discharge Diet: Cardiac Discharge Activity: As per PT/OT instructions Patient Instructions: Carotid Artery Disease (GEN), Ischemic Stroke (GEN), Against Medical Advice (DC), Opioid Safety Activity Restrictions/Additional Instructions: Please note that you are leaving the hospital prematurely and that your blood pressure is quite significantly elevated at 205/71 risking additional stroke, bleeding in the brain, heart attack, and other complications. Please note your blood pressure needs close monitoring since due to varying degree of narrowing of all arteries that are supplying her brain you are at risk of abrupt decrease in perfusion of your brain with decrease in blood pressure. If your blood pressure comes down too low with treatment on its own this may risk further worsening of stroke, brain swelling, herniation, with risk of severe disability and . Due to need for close monitoring and very cautious fine-tuning of the blood pressure you would benefit from further hospitalization and are encouraged to stay or return at any time to continue care. Also since you are leaving prematurely your discharge preparation may be incomplete. Please call [phone] with any changes in your condition. If you intend not to return to the hospital please see your primary provider at earliest possible appointment. Please follow-up with neurology. Please discuss regarding your stroke and consideration of referral to vascular surgery. Please monitor blood pressure closely at home. Seek medical attention if your blood pressure is above 190-200 or blood pressure falls suddenly, or if you experience worsening of your stroke symptoms, or are noted difficult to awaken, or if there are any other concerns. Long-term he would benefit from better control of your blood pressure down to establish targets. At the moment, until you recover from acute episode of stroke rapid decrease in blood pressure may be detrimental. Hold the carvedilol if your blood pressure is any lower than 150 top number until you follow-up with your doctor to help supervise optimization of blood pressure control. Your cholesterol medication was changed from simvastatin to atorvastatin as this medication can be taken at higher intensity to help reduce the chance of further progression of atherosclerosis. Please discuss this further with your neurologist and primary care doctor. Please discuss further consideration of additional work-up with cardiac event monitor, possibly transesophageal echocardiogram with your primary provider and neurologist. Please follow-up with your primary provider also with regards to 6mm nodule seen incidentally in the upper lobe of your left lung. Discussed with your doctor consideration of follow-up CT scan at 6-12 months to ensure that there are no concerning changes. Discharge Attestations Time Spent in Discharge Care*: greater than 30 min Status at Discharge: Cognitive status at discharge: cognitively intact, Behavioral status at discharge: cooperative, Quality Metrics Clinical Quality Measures During this hospital stay, did patient experience: Stroke Contraindication to Antithrombotic: Antithrombotic prescribed Contraindication to Anticoagulation: Overlap treatment not indicated Contraindication to Statin: Statin prescribed Contraindication to tPA: Did not meet criteria Reason stroke education not provided: Stroke education provided to patient Coding Level of Care Code Acute Chg FW DC note Diagnoses Acute ischemic stroke I63.9 Iron deficiency E61.1 Lung nodules R91.8
--- NOTE | 2021-07-15 09:35 | PC.SOCIAL ---
discharge follow up call made, spoke with pts . She reports patient is better. His blood pressure has stayed below 190. Discussed the importance of taking pt to the ED if b/p top number is greater than 190-200. Patient is at high risk for a stroke, brain bleed and other complications. verbalizes understanding. Discussed if blood pressure is lower than 150 on the top to hold his dose of Carvedilol. Patients is picking up Atorvastatin today from the pharmacy. is aware of follow up appointment with pcp on 07-21. She states that pt doesn't get along well with dr. chapman so when pts has appointment w pcp they are going to discuss another neurologist. Discussed with about discussing lung nodule with pcp. denies any questions or concerns.
== END 2021-07-14 12:09 | disposition home or self-care (01) | DRG 65 ==
LOC: ER 07-12 01:30 → MEDSURG 07-12 02:17
PROVIDERS: Emergency Medicine; Admitting Provider Student in an Organized Health Care Education/Training Program; Emergency Provider Emergency Medicine; PCP Internal Medicine; Visit Provider Internal Medicine
DX: I63.81 Other cerebral infarction due to occlusion or stenosis of small artery (principal); G81.91 Hemiplegia, unspecified affecting right dominant side; R29.706 NIHSS score 6; R47.01 Aphasia; R29.810 Facial weakness; I10 Essential (primary) hypertension; Z86.73 Personal history of transient ischemic attack (TIA), and cerebral infarction without residual deficits; F41.9 Anxiety disorder, unspecified; G89.29 Other chronic pain; M54.9 Dorsalgia, unspecified; I25.10 Atherosclerotic heart disease of native coronary artery without angina pectoris; K21.9 Gastro-esophageal reflux disease without esophagitis; E78.5 Hyperlipidemia, unspecified; C61 Malignant neoplasm of prostate; G25.81 Restless legs syndrome; Z98.61 Coronary angioplasty status; Z87.891 Personal history of nicotine dependence; J44.9 Chronic obstructive pulmonary disease, unspecified; I65.23 Occlusion and stenosis of bilateral carotid arteries; D50.9 Iron deficiency anemia, unspecified; I65.03 Occlusion and stenosis of bilateral vertebral arteries; Z79.02 Long term (current) use of antithrombotics/antiplatelets
CPT/HCPCS: 36415; 36416; 70450; 70496; 70498; 71045; 80048; 80053; 80061; 80306; 81003; 82962; 83036; 83721; 85025; 85610; 85730; 92523; 92610; 93306; 96360; 96361; 97116; 97161; 97167; 99285; Q9967

== ENCOUNTER → 2021-08-30 10:24 | Outpatient (BNVA) | payer MEDICARE, OTHER, SELFPAY | PROVIDERS: PCP Internal Medicine; Visit Provider Surgery | DX: Z01.812 Encounter for preprocedural laboratory examination (principal); Z20.822 Contact with and (suspected) exposure to COVID-19 | CPT/HCPCS: 87635 ==

== ENCOUNTER → 2021-09-20 09:07 | Outpatient (BNVA) | payer MEDICARE, OTHER, SELFPAY | PROVIDERS: PCP Internal Medicine; Visit Provider Surgery | DX: Z01.812 Encounter for preprocedural laboratory examination (principal); Z20.822 Contact with and (suspected) exposure to COVID-19 | CPT/HCPCS: 87635 ==

== ENCOUNTER 2021-11-25 10:40 | Emergency (ER) | payer MEDICARE, OTHER, SELFPAY ==
[2021-11-25 11:12] VITALS: BP 178/62; PULSE 57; RESP 19; TEMP 36.8; O2SAT 95; BMI 24.2
[2021-11-25 11:18] VITALS: BP 135/61; PULSE 51; RESP 18; O2SAT 99
--- NOTE | 2021-11-25 11:18 | W.ED.SOB ---
HPI - SOB/Dyspnea General: Chief Complaint: Shortness of Breath/Dyspnea Stated Complaint: Diff Breathing Time Seen by Provider: 11/25/21 11:15 History of Present Illness: HPI Narrative: 76-year-old male presents emergency room with complaint of weakness generally not feeling well. He has some arrhythmia and palpitations. Has noticed a slow heart rate. They recently did adjust some of his medications and talking to him sounds like he may have made a change in the carvedilol. No fever sweats or chills recently. MD elicited complaint: shortness of breath and cough Onset (ago): week(s) (1) Timing: intermittent Severity: mild Exacerbating factors: exertion Relieving factors: rest Associated symptoms: Reports dizziness and palpitations; Deny abdominal pain, chest congestion, chest pain, cough, diaphoresis, extremity pain, fever(s), hemoptysis, lightheadedness, nausea, orthopnea, paresthesias, polydipsia, polyuria, rash, sense of impending doom or syncope Treatment prior to arrival: none Review of Systems Const: Denies: fever(s) or diaphoresis ENMT: Denies: throat pain, ear or mastoid pain, nasal discharge or nasal congestion Card: Reports: palpitations; Denies: chest pain, lightheadedness, syncope or orthopnea Resp: Denies: hemoptysis or chest congestion GI: Denies: abdominal pain or nausea : Denies: flank pain, dysuria, urinary frequency or urinary urgency Musc: Denies: extremity pain Skin/Breast: Denies: rash or pruritus Neuro: Reports: dizziness Endo: Denies: polyuria or polydipsia PFSH ED PFSH: Medical History Anxiety Cataract Chronic back pain Coronary artery disease GERD (gastroesophageal reflux disease) HTN (hypertension) Hyperlipidemia Lung nodules Prostate cancer Restless leg Streptococcus group B infection Surgical History History of ankle surgery History of appendectomy History of prostate surgery Hx of aortic valve repair Hx of ascending aorta replacement Hx of cataract surgery Hx of tonsillectomy S/P PTCA (percutaneous transluminal coronary angioplasty) Family History Brother Heart attack CAD (coronary artery disease) Chronic kidney disease (CKD) Stroke Father CAD (coronary artery disease) Stroke Sister Stroke Mother Stroke Other Heart disease Denies family history of Diabetes Clotting disorder Dementia Suicide Anesthesia complication Bleeding disorder Lung disease Cancer Social History Smoking and tobacco status: current some day smoker cigarettes Packs smoked per day: 0.5 Years cigarettes smoked: 65 [ Other cigarette details: Hx of 4 PPD x 30 Years] Quit status (tobacco): has quit using tobacco Second hand smoke exposure: Yes Smoking risk assessment/counseling performed?: Yes Alcohol intake: current Alcohol intake frequency: holidays/special occasions only Alcohol type: beer Counseling given: No Counseling given: Yes Lives independently: Yes Household members: spouse Marital status: Current occupational status: retired History of recent travel: No Current gender identity: Male Physical Exam Const: COMMON NORMALS: no acute distress GENERAL APPEARANCE: cooperative and comfortable ORIENTATION/CONSCIOUSNESS: Yes awake, Yes oriented to person, Yes oriented to place and Yes oriented to time HENMT: COMMON NORMALS: normocephalic, atraumatic and hearing grossly normal bilaterally HEAD & SCALP: normocephalic and atraumatic Resp: COMMON NORMALS: normal respiratory effort, No retractions, No use of accessory muscles and clear to auscultation bilaterally AUSCULTATION: clear to auscultation bilaterally Cardio: RATE: bradycardic HEART SOUNDS: Murmur heart sound present GI: COMMON NORMALS: Soft to palpation and No hepatosplenomegaly present AUSCULTATION: Yes normoactive bowel sounds PALPATION: Yes Soft to palpation, No Tenderness to palpation present (GI), No Guarding due to palpation present (GI) and Yes No hepatosplenomegaly present Extremity: COMMON NORMALS: normal to inspection, capillary refill normal, no clubbing, cyanosis or edema, no calf tenderness and no pedal edema Neuro: SENSORIUM/ORIENTATION: Yes oriented to person, Yes oriented to place and Yes oriented to time Skin: COMMON NORMALS: no rashes or lesions noted GENERAL SKIN EXAM: no rashes or lesions noted Course Vital Signs: Vital signs: Vital Signs Temperature 98.2 F 11/25/21 11:12 Pulse Rate 78 11/25/21 16:17 Respiratory Rate 18 11/25/21 16:17 Blood Pressure 136/70 11/25/21 16:17 Pulse Oximetry 99 11/25/21 16:17 MDM - SOB/Dyspnea Medical Decision Making Decrease his metoprolol by half. He is a little bit hypertensive so we will add back some amlodipine 5 mg daily. Follow-up with his primary care doctor or his sane nurse in the next few days. If he has any worsening or change problems return. He also needs follow-up on his hemoglobin continue to monitor this. Lab Data : 11/25/21 11:38 11/25/21 11:38 Labs/Radiology: Radiology Impressions Chest X-Ray 11/25/21 11:19 IMPRESSION: No acute chest abnormality. Laboratory Results WBC 6.7 10^3/uL (4.0-10.0) 11/25/21 11:38 RBC 3.43 10^6/uL (4.1-5.3) L 11/25/21 11:38 Hgb 8.8 g/dL (11.7-16.6) L 11/25/21 11:38 Hct 30.0 % (42.0-52.0) L 11/25/21 11:38 MCV 87.5 fl (80-94) 11/25/21 11:38 MCH 25.7 pg (28.0-34.0) L 11/25/21 11:38 MCHC 29.3 g/dL (30.0-36.0) L 11/25/21 11:38 RDW 13.6 % (12.1-15.1) 11/25/21 11:38 Plt Count 200 10^3/cmm (130-400) 11/25/21 11:38 MPV 10.1 fL (7.4-10.4) 11/25/21 11:38 Neut % (Auto) 70.6 % 11/25/21 11:38 Lymph % (Auto) 16.0 % 11/25/21 11:38 [place] % (Auto) 8.2 % 11/25/21 11:38 Eos % (Auto) 4.5 % 11/25/21 11:38 Baso % (Auto) 0.6 % 11/25/21 11:38 Neut # (Auto) 4.76 10^3/uL (1.8-7.7) 11/25/21 11:38 Lymph # (Auto) 1.1 10^3/uL (0.8-4.8) 11/25/21 11:38 [place] # (Auto) 0.6 10^3/uL (0.2-0.9) 11/25/21 11:38 Eos # (Auto) 0.3 10^3/uL (0.0-0.8) 11/25/21 11:38 Baso # (Auto) 0.0 10^3/uL (0.0-0.1) 11/25/21 11:38 Nucleated RBC % (auto) 0 % 11/25/21 11:38 Nucleated RBCs # 0.0 /100WBC 11/25/21 11:38 Sodium 137 mmol/L (136-145) 11/25/21 11:38 Potassium 4.7 mmol/L (3.5-5.1) 11/25/21 11:38 Chloride 103 mmol/L (98-107) 11/25/21 11:38 Carbon Dioxide 23 mmol/L (22-29) 11/25/21 11:38 Anion Gap 15.7 (5-19) 11/25/21 11:38 BUN 21 mg/dL (8-23) 11/25/21 11:38 Creatinine 1.0 mg/dL (0.7-1.2) 11/25/21 11:38 GFR Calculation Not Reportable 11/25/21 11:38 Glucose 108 mg/dL (65-115) 11/25/21 11:38 Calculated Osmolality 288 mOsm/kg (285-295) 11/25/21 11:38 Calcium 8.7 mg/dL (8.5-10.5) 11/25/21 11:38 Magnesium 2.1 mg/dL (1.7-2.3) 11/25/21 11:38 Total Bilirubin 0.3 mg/dL (0.15-1.2) 11/25/21 11:38 AST 17 U/L (0-40) 11/25/21 11:38 ALT 13 U/L (0-41) 11/25/21 11:38 Alkaline Phosphatase 133 IU/L (40-130) H 11/25/21 11:38 Troponin T Baseline 19 ng/L (0-15) H 11/25/21 11:38 Troponin T 120 Minute 20.28 ng/L (0-15) H 11/25/21 13:52 Delta Troponin T 1.28 ABS# (0-10) 11/25/21 13:52 Total Protein 6.5 g/dL (6.6-8.7) L 11/25/21 11:38 Albumin 4.7 g/dL (3.5-5.2) 11/25/21 11:38 Globulin 1.8 g/dL (1.3-4.6) 11/25/21 11:38 Discharge Plan Discharge Patient Disposition: Home Clinical Impression: Bradycardia, Hypertension, Medication side effect Condition: Stable Prescriptions: New amlodipine 5 mg tablet 5 mg PO DAILY Qty: 30 0RF Changed carvedilol 12.5 mg tablet 6.25 mg PO BID Qty: 0 0RF No Action Bevespi Aerosphere 9-4.8 mcg HFA aerosol inhaler 2 puff inhalation BID Qty: 10.7 5RF gabapentin 600 mg tablet 600 - 1,200 mg PO BEDTIME 0RF paroxetine HCl 10 mg tablet 10 mg PO QAM 0RF tizanidine 4 mg tablet 4 mg PO BEDTIME 0RF clopidogrel 75 mg tablet 75 mg PO QAM 0RF omeprazole 20 mg capsule,delayed release(DR/EC) 20 mg PO QAM 0RF albuterol sulfate [Ventolin HFA] 90 mcg/actuation HFA aerosol inhaler 2 inh INHALATION Q6H PRN (Reason: Shortness Of Breath) 0RF multivitamin Tablet 1 tab PO QAM 0RF aspirin 81 mg Tablet,Delayed Release (Dr/Ec) 81 mg PO QAM 0RF ferrous sulfate [iron] 325 mg (65 mg iron) Tablet 325 mg PO EVERY OTHER DAY 0RF budesonide 0.5 mg/2 mL suspension for nebulization 0.5 mg inhalation BID PRN (Reason: Shortness Of Breath Or Wheezing) 0RF Robhots(1,000mg Cbd 100mg Phf) See Rx Instructions .ROUTE .COMPLEX 0RF Rx Instructions: takes 1/4 to 1/2 gummy at bedtime prn atorvastatin 80 mg tablet 80 mg PO DAILY Qty: 60 0RF Vitamin D-3 with Aloe 120-1,000-10 mg-unit-mg Tablet 1 tab PO DAILY 0RF Discharge Orders: Discharge ED (Routine); Ordered 11/25/21 Ordered By: Joshua Chavarria Referrals: KENDY CASTILLO MD [Primary Care Provider] - Discharge Diet: Usual diet Discharge Activity: Resume usual activity Patient Instructions: Opioid Safety Activity Restrictions/Additional Instructions: 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 Medication changes as above. 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
--- NOTE | 2021-11-25 11:19 | ECG_ITS ---
[facility] Test Date: 2021-11-25 Pat Name: Ronni Torres Department: Room: Gender: Male Margin Trimmer: : [id number] Requested By: Joshua Stover Order Number: [id number] Reading MD: NAM SHEFFIELD Measurements Intervals [place] Rate: 50 P: 72 WI: 186 QRS: 66 QRSD: 86 T: 76 QT: 430 QTc: 393 Interpretive Statements SINUS BRADYCARDIA Compared to ECG 07/11/2021 22:13:49 Ventricular premature complex(es) no longer present Myocardial infarct finding no longer present Electronically Signed On 11-25-2021 21:47:56 MEDICAL SUPERVISOR by NAM SHEFFIELD [id number]
--- NOTE | 2021-11-25 11:19 | XR_ITS ---
WS: [id number] XR chest 1V portable [id number] REASON FOR EXAM: dyspnea/cough FINDINGS: Mild tortuosity thoracic aorta. Normal heart size. Elevation of the left hemidiaphragm. Calcified granulomatous disease in both hemithoraces. No acute pulmonary parenchymal or pleural abnormality. Moderate degenerative change in the mid and lower thoracic spine. XR/XR chest 1V portable [id number] IMPRESSION: No acute chest abnormality.
[2021-11-25 11:44] LABS: Basophils % 0.6 %; Eosinophils # 0.3 10^3/uL (0.0-0.8); Eosinophils % 4.5 %; Hemoglobin 8.8 g/dL (11.7-16.6); Lymphocytes # 1.1 10^3/uL (0.8-4.8); Mean Corpuscular HGB Conc 29.3 g/dL (30.0-36.0); Mean Corpuscular Hemoglobin 25.7 pg (28.0-34.0); Mean Corpuscular Volume 87.5 fl (80-94); Mean Platelet Volume 10.1 fL (7.4-10.4); Monocytes # 0.6 10^3/uL (0.2-0.9); Monocytes % 8.2 %; Neutrophils # 4.76 10^3/uL (1.8-7.7); Neutrophils % 70.6 %; Nucleated Red Blood Cells % 0 %; Platelet Count 200 10^3/cmm (130-400); Red Blood Count 3.43 10^6/uL (4.1-5.3); Red Cell Distribution Width 13.6 % (12.1-15.1); White Blood Count 6.7 10^3/uL (4.0-10.0)
[2021-11-25 12:03] VITALS: PULSE 47; RESP 16; O2SAT 100
[2021-11-25 12:09] LABS: Alanine Aminotransferase 13 U/L (0-41); Albumin Level 4.7 g/dL (3.5-5.2); Alkaline Phosphatase 133 IU/L (40-130); Aspartate Amino Transferase 17 U/L (0-40); Blood Urea Nitrogen 21 mg/dL (8-23); Calcium 8.7 mg/dL (8.5-10.5); Carbon Dioxide 23 mmol/L (22-29); Chloride 103 mmol/L (98-107); Globulin 1.8 g/dL (1.3-4.6); Glucose 108 mg/dL (65-115); Magnesium 2.1 mg/dL (1.7-2.3); Osmolality Calculated 288 mOsm/kg (285-295); Sodium 137 mmol/L (136-145); Total Bilirubin 0.3 mg/dL (0.15-1.2); Total Protein 6.5 g/dL (6.6-8.7)
[2021-11-25 12:10] LABS: Anion Gap 15.7 (5-19); Potassium 4.7 mmol/L (3.5-5.1)
[2021-11-25 12:14] VITALS: BP 135/61; PULSE 50; RESP 5; O2SAT 100
[2021-11-25 12:16] LABS: Troponin(5th) Baseline 19 ng/L (0-15)
--- NOTE | 2021-11-25 13:19 | ECG_ITS ---
[facility] Test Date: 2021-11-25 Pat Name: Ronni Torres Department: Room: Gender: Male Composite Laminator: : 1945 Requested By: Joshua Stover Order Number: [id number] Reading MD: NAM SHEFFIELD Measurements Intervals [place] Rate: 48 P: 75 DC: 185 QRS: 71 QRSD: 86 T: 73 QT: 438 QTc: 395 Interpretive Statements SINUS BRADYCARDIA Compared to ECG 07/11/2021 22:13:49 Ventricular premature complex(es) no longer present Myocardial infarct finding no longer present Electronically Signed On 11-25-2021 21:49:20 CREDIT RATING INSPECTOR by NAM SHEFFIELD [id number]
[2021-11-25 14:31] LABS: Troponin 5 2HR 20.28 ng/L (0-15)
[2021-11-25 14:37] LABS: Troponin 5 2HR Delta 1.28 ABS# (0-10)
[2021-11-25 16:17] VITALS: BP 136/70; PULSE 78; RESP 18; O2SAT 99
--- NOTE | 2021-11-26 12:52 | DCPLANNER ---
neurology manager had message to schedule a follow up appointment for patient with [facility]. neurology manager called [facility], spoke with Flores, gave clinic patients information. A follow up appointment was scheduled for patient, rn case management called patient to give him the appointment. Patient stated to cancel the appointments, he already has a tablet technician that he sees, and patient stated that he does not want the stress test scheduled. neurology manager called [facility], and cancelled the appointment.
== END 2021-11-25 16:21 | disposition home or self-care (01) ==
PROVIDERS: Emergency Provider Family Medicine; PCP Internal Medicine
DX: R00.1 Bradycardia, unspecified (principal); I10 Essential (primary) hypertension; T50.905A Adverse effect of unspecified drugs, medicaments and biological substances, initial encounter; Z79.02 Long term (current) use of antithrombotics/antiplatelets; Z79.82 Long term (current) use of aspirin; I25.10 Atherosclerotic heart disease of native coronary artery without angina pectoris; E78.5 Hyperlipidemia, unspecified; Z85.46 Personal history of malignant neoplasm of prostate; F17.210 Nicotine dependence, cigarettes, uncomplicated
CPT/HCPCS: 36415; 71045; 80053; 83735; 84484; 85025; 93005; 99283

== ENCOUNTER 2021-12-14 10:06 | Emergency (ER) | payer MEDICARE, OTHER, SELFPAY ==
[2021-12-14] VITALS (8 sets, daily range): BP systolic 136–181; BP diastolic 41–72; PULSE 47–60; RESP 18–20; TEMP 36.2–36.6; O2SAT 94–96; BMI 25.0
--- NOTE | 2021-12-14 10:24 | CT_ITS ---
WS: [id number] CT HEAD TECHNIQUE: Noncontrast CT of the head obtained from the skullbase to the vertex. CLINICAL INFORMATION: fall/AMS COMPARISON: July 13, 2021 DLP: 962.[address] scans at [facility] use at least one of these dose optimization techniques: automated e xposure control; mA and/or kV adjustment per patient size (includes targeted exams where dose is matc hed to clinical indication); or iterative reconstruction. FINDINGS: No evidence of intracranial hemorrhage or mass effect. Ventricular system and basal cisterns are collier nt. Moderate small vessel changes with moderate parenchymal volume loss. Chronic lacunar infarcts in the bilateral samayoa radiata and bilateral basal ganglia. These are unchanged from previous. No extra -axial fluid collections. No evidence of mass or mass effect. Paranasal sinuses and mastoid air cells are well aerated. Slight mucosal thickening LEFT mastoid tip. Small amount of edema RIGHT parietal scalp. No underlying fractures. CT/CT head wo con* [id number] IMPRESSION: 1. No evidence of intracranial hemorrhage or mass effect. 2. Moderate small vessel changes. Moderate parenchymal volume loss. 3. Multiple chronic lacunar infarcts in the periventricular samayoa radiata and bilateral basal ganglia unchanged from previous. 4. Small amount of RIGHT scalp soft tissue edema. No fractures. 5. No acute intracranial findings.
--- NOTE | 2021-12-14 10:24 | ECG_ITS ---
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 Measurements Intervals [place] Rate: 58 P: 80 HI: 192 QRS: 79 QRSD: 90 T: 71 QT: 418 QTc: 411 Interpretive Statements SINUS BRADYCARDIA Compared to ECG 11/25/2021 13:43:33 No significant changes Electronically Signed On 12-15-2021 5:37:56 MEASURING MACHINE TENDER by Isabella Forman M.D. [id number]
--- NOTE | 2021-12-14 10:24 | XRR_ITS ---
PROCEDURE INFORMATION: Exam: XR Chest Exam date and time: 12/14/2021 10:24 AM Age: 76 years old Clinical indication: Cough and dyspnea; Additional info: Dyspnea/cough TECHNIQUE: Imaging protocol: XR of the chest. Views: 1 view. COMPARISON: CR XR chest 1V portable [id number] 11/25/2021 11:29 AM FINDINGS: Lungs: Unremarkable. No consolidation. Pleural spaces: Unremarkable. No pleural effusion. No pneumothorax. Heart/Mediastinum: Unremarkable. No cardiomegaly. Bones/joints: Unremarkable. XR/XR chest 1V portable [id number] IMPRESSION: No acute findings.
--- NOTE | 2021-12-14 10:25 | W.ED.FALL ---
HPI - Fall General: Chief Complaint: Fall Stated Complaint: stoke like symptoms Time Seen by Provider: 12/14/21 10:22 Source: family Mode of arrival: ambulatory Limitations: altered mental status History of Present Illness: 76-year-old male brought in by private vehicle accompanied by his . He was last seen normal yesterday morning. He reported her last night when she returned home around 6 PM that he had fallen and hit his head on the ice he was lethargic and poorly responsive at times when she seen him that evening he seemed to improve a little bit but then this morning when he woke up he is significantly worsened and poorly responsive. He did previously had a stroke in 1995 in June 2021. Patient is essentially responsive to painful stimuli only not to verbal stimuli does not follow commands. He is hypertensive and bradycardic. He is also mildly hypoxic which is corrected by 4 L nasal cannula oxygen in the department. He does not usually wear oxygen at home. According to the he has not had any vomiting he has not had any complaints of chest pain. No other illnesses recently. No one else in the home has been ill. He does take Plavix and aspirin. complaint: fall Onset (ago): day(s) (1) Fall from: standing Fall witnessed: no Place fall occurred: home Loss of consciousness: Unsure Prolonged down time: unclear Symptoms prior to fall: none Location of injury: head Associated symptoms-after fall: Reports confusion, difficulty walking and weakness; Denies abdominal pain, chest pain or headache(s) Review of Systems General: Reports: ROS unobtainable due to mental status (Limited review of systems with assistance of ) Card: Denies: chest pain GI: Denies: abdominal pain Neuro: Reports: difficulty walking and confusion; Denies: headache(s) ON LICENSE OF [facility] ED PFSH: Medical History Anxiety Aortitis Carotid artery disease Cataract Chronic back pain COPD (chronic obstructive pulmonary disease) Coronary artery disease CVA (cerebral vascular accident) GERD (gastroesophageal reflux disease) History of common carotid artery stent placement HTN (hypertension) Hyperlipidemia Lung nodules Peripheral vascular disease Prostate cancer Restless leg Streptococcus group B infection Surgical History History of ankle surgery History of appendectomy History of prostate surgery Hx of aortic valve repair Hx of ascending aorta replacement Hx of cataract surgery Hx of tonsillectomy S/P PTCA (percutaneous transluminal coronary angioplasty) Family History Brother Heart attack CAD (coronary artery disease) Chronic kidney disease (CKD) Stroke Father CAD (coronary artery disease) Stroke Sister Stroke Mother Stroke Other Heart disease Denies family history of Diabetes Clotting disorder Dementia Suicide Anesthesia complication Bleeding disorder Lung disease Cancer Social History Smoking and tobacco status: current some day smoker cigarettes Packs smoked per day: 0.5 Years cigarettes smoked: 65 [ Other cigarette details: Hx of 4 PPD x 30 Years] Quit status (tobacco): has quit using tobacco Second hand smoke exposure: Yes Smoking risk assessment/counseling performed?: Yes Alcohol intake: current Alcohol intake frequency: holidays/special occasions only Alcohol type: beer Counseling given: No Counseling given: Yes Lives independently: Yes Household members: spouse Marital status: Current occupational status: retired History of recent travel: No Current gender identity: Male Physical Exam HENMT: COMMON NORMALS: normocephalic and atraumatic HEAD & SCALP: normocephalic and atraumatic Eye: COMMON NORMALS: Equal, round and reactive pupils present, EOMs intact bilaterally, conjunctivae normal and no scleral icterus CONJUNCTIVA: Yes conjunctivae normal PUPIL: Yes Equal, round and reactive pupils present Neck/C-Spine: COMMON NORMALS: no lymphadenopathy, supple and no JVD Lymph: LYMPHATIC: no lymphadenopathy noted and no lymphedema noted Resp: COMMON NORMALS: normal respiratory effort, No retractions, No use of accessory muscles and clear to auscultation bilaterally AUSCULTATION: clear to auscultation bilaterally Cardio: COMMON NORMALS: no JVD, regular rate, regular rhythm and No murmurs present (Cardio) RATE: regular rate RHYTHM: regular rhythm GI: COMMON NORMALS: Soft to palpation and No hepatosplenomegaly present AUSCULTATION: Yes normoactive bowel sounds PALPATION: Yes Soft to palpation, No Tenderness to palpation present (GI), No Guarding due to palpation present (GI) and Yes No hepatosplenomegaly present Extremity: COMMON NORMALS: normal to inspection, capillary refill normal, no clubbing, cyanosis or edema, no calf tenderness and no pedal edema Neuro: OTHER: Patient mumbles responses initially as the ER visit progressed he became more awake and was able to answer some questions Skin: COMMON NORMALS: no rashes or lesions noted GENERAL SKIN EXAM: no rashes or lesions noted Course Vital Signs: Vital signs: Vital Signs Temperature 97.1 F L 12/14/21 11:06 Pulse Rate 60 12/14/21 14:30 Respiratory Rate 18 12/14/21 14:30 Blood Pressure 149/67 12/14/21 14:30 Pulse Oximetry 94 12/14/21 14:30 MDM - Fall Medical Decision Making Patient initially was very poorly responsive and only to painful stimuli. He progressively improved. We admitted due to his encephalopathy. As well as mild acute kidney injury anemia. Dr. Stevenson seen the patient and orders have been written patient became more and more awake and responsive several hours later refused to be admitted and demanded to leave AMA. He could not be dissuade advised we return at any time. I did review with him his presenting issue that we were concerned about he dismisses this. He is angry that the ambulance brought him to this facility and wants to go to the hospital in [place]. Medical Records I reviewed the patient's medical records. Lab Data I reviewed the patient's lab results. : 12/14/21 Unknown 12/14/21 Unknown Radiology Impressions Chest X-Ray 12/14/21 10:24 IMPRESSION: No acute findings. Head CT 12/14/21 10:24 IMPRESSION: 1. No evidence of intracranial hemorrhage or mass effect. 2. Moderate small vessel changes. Moderate parenchymal volume loss. 3. Multiple chronic lacunar infarcts in the periventricular samayoa radiata and bilateral basal ganglia unchanged from previous. 4. Small amount of RIGHT scalp soft tissue edema. No fractures. 5. No acute intracranial findings. Chest/Abdomen/Pelvis CT 12/14/21 10:59 IMPRESSION: 1. No acute chest findings. 2. Removal of previous aortic endograft with biiliac extension. Abandoned RIGHT iliac graft. 3. Interval placement of RIGHT infrarenal aortoiliac stent graft. No evidence of enlarging abdominal aorta or aortic aneurysm. 4. RIGHT external iliac stent appears patent. 5. Diffuse infiltration the liver. 6. No acute appearing abdomen or pelvic findings. Laboratory Results WBC 8.8 10^3/uL (4.0-10.0) 12/14/21 Unknown RBC 3.70 10^6/uL (4.1-5.3) L 12/14/21 Unknown Hgb 9.0 g/dL (11.7-16.6) L 12/14/21 Unknown Hct 30.8 % (42.0-52.0) L 12/14/21 Unknown MCV 83.2 fl (80-94) 12/14/21 Unknown MCH 24.3 pg (28.0-34.0) L 12/14/21 Unknown MCHC 29.2 g/dL (30.0-36.0) L 12/14/21 Unknown RDW 14.2 % (12.1-15.1) 12/14/21 Unknown Plt Count 290 10^3/cmm (130-400) 12/14/21 Unknown MPV 9.4 fL (7.4-10.4) 12/14/21 Unknown Neut % (Auto) 73.7 % 12/14/21 Unknown Lymph % (Auto) 13.9 % 12/14/21 Unknown [place] % (Auto) 6.9 % 12/14/21 Unknown Eos % (Auto) 4.6 % 12/14/21 Unknown Baso % (Auto) 0.6 % 12/14/21 Unknown Neut # (Auto) 6.51 10^3/uL (1.8-7.7) 12/14/21 Unknown Lymph # (Auto) 1.2 10^3/uL (0.8-4.8) 12/14/21 Unknown [place] # (Auto) 0.6 10^3/uL (0.2-0.9) 12/14/21 Unknown Eos # (Auto) 0.4 10^3/uL (0.0-0.8) 12/14/21 Unknown Baso # (Auto) 0.1 10^3/uL (0.0-0.1) 12/14/21 Unknown Nucleated RBC % (auto) 0 % 12/14/21 Unknown Nucleated RBCs # 0.0 /100WBC 12/14/21 Unknown Specimen Type Arterial 12/14/21 10:24 Sample Site Radial, right 12/14/21 10:24 ABG pH 7.41 (7.35-7.45) 12/14/21 10:24 ABG pCO2 39.1 mmHg (35-45) 12/14/21 10:24 ABG pO2 216.0 mmHg (80.0-100.0) H 12/14/21 10:24 ABG HCO3 24.8 mmol/L (22-26) 12/14/21 10:24 ABG O2 Saturation > 100.0 12/14/21 10:24 ABG Base Excess 0.2 mmol/L (-2.0-2.0) 12/14/21 10:24 Pio Test Pos 12/14/21 10:24 A-a O2 Gradient Not Reportable 12/14/21 10:24 Hematocrit 29.3 % (42-52) L 12/14/21 10:24 Hgb O2 Saturation 92.4 % (95-100) L 12/14/21 10:24 Carboxyhemoglobin 7.3 %THgb (0.4-20.1) 12/14/21 10:24 Methemoglobin 0.9 % (0.4-1.5) 12/14/21 10:24 Total Hemoglobin 9.5 g/dL (14-18) L 12/14/21 10:24 Sodium 141.0 mmol/L (131-143) 12/14/21 10:24 Potassium 4.4 mmol/L (3.5-5.0) 12/14/21 10:24 Glucose 165.0 mg/dL (70-115) H 12/14/21 10:24 Ionized Calcium 1.3 mmol/L (1.1-1.4) 12/14/21 10:24 O2 Delivery Device Nc 12/14/21 10:24 O2 Liters/Min 4.0 % 12/14/21 10:24 FiO2 36.0 % 12/14/21 10:24 Insert Molding Operator ID glc 12/14/21 10:24 Sodium 138 mmol/L (136-145) 12/14/21 Unknown Potassium 4.4 mmol/L (3.5-5.1) 12/14/21 Unknown Chloride 101 mmol/L (98-107) 12/14/21 Unknown Carbon Dioxide 25 mmol/L (22-29) 12/14/21 Unknown Anion Gap 16.4 (5-19) 12/14/21 Unknown BUN 32 mg/dL (8-23) H 12/14/21 Unknown Creatinine 1.6 mg/dL (0.7-1.2) H 12/14/21 Unknown GFR Calculation Not Reportable 12/14/21 Unknown Glucose 164 mg/dL (65-115) H 12/14/21 Unknown Estimat Average Glucose 137 12/14/21 10:35 Hemoglobin A1c 6.4 % (4.0-6.0) H 12/14/21 10:35 Calculated Osmolality 297 mOsm/kg (285-295) H 12/14/21 Unknown Lactic Acid 2.2 mmol/L (0.5-2.2) 12/14/21 Unknown Lactic Acid (Sepsis) 1.4 mmol/L (0.5-2.2) 12/14/21 12:45 Calcium 10.1 mg/dL (8.5-10.5) 12/14/21 Unknown Magnesium 2.2 mg/dL (1.7-2.3) 12/14/21 Unknown Total Bilirubin 0.2 mg/dL (0.15-1.2) 12/14/21 Unknown AST 15 U/L (0-40) 12/14/21 Unknown ALT 17 U/L (0-41) 12/14/21 Unknown Alkaline Phosphatase 130 IU/L (40-130) 12/14/21 Unknown Ammonia 15 umol/L (16-60) L 12/14/21 11:24 Creatine Kinase 92 U/L (39-308) 12/14/21 Unknown Troponin T Baseline 21 ng/L (0-15) H 12/14/21 Unknown Troponin T 120 Minute 19.50 ng/L (0-15) H 12/14/21 12:45 Delta Troponin T -1.50 ABS# (0-10) L 12/14/21 12:45 Total Protein 7.5 g/dL (6.6-8.7) 12/14/21 Unknown Albumin 5.0 g/dL (3.5-5.2) 12/14/21 Unknown Globulin 2.5 g/dL (1.3-4.6) 12/14/21 Unknown Lipase 39 U/L (13-60) 12/14/21 Unknown Vitamin B12 741 pg/mL (232-1245) 12/14/21 12:45 TSH 1.99 uIU/mL (0.27-4.20) 12/14/21 12:45 Urine Color Yellow (Yellow) 12/14/21 Unknown Urine Appearance Clear (CLEAR) 12/14/21 Unknown Urine pH 7 (5-7) 12/14/21 Unknown Ur Specific [place] 1.005 (1.005-1.030) 12/14/21 Unknown Urine Protein Neg (Negative) 12/14/21 Unknown Urine Glucose (UA) Norm (Normal) 12/14/21 Unknown Urine Ketones Negative (Negative) 12/14/21 Unknown Urine Blood Neg (Negative) 12/14/21 Unknown Urine Nitrate Negative (Negative) 12/14/21 Unknown Urine Bilirubin Neg (Negative) 12/14/21 Unknown Urine Urobilinogen Neg mg/dL (Negative) 12/14/21 Unknown Ur Leukocyte Esterase Negative (Negative) 12/14/21 Unknown Salicylates 0.4 mg/dL (3-10) L 12/14/21 10:35 Urine Opiates Screen Negative ng/mL (Negative) 12/14/21 Unknown Acetaminophen < 5.0 ug/mL (10-30) L 12/14/21 10:35 Ur Barbiturates Screen Negative ng/mL (Negative) 12/14/21 Unknown Ur Phencyclidine Scrn Negative ng/mL (Negative) 12/14/21 Unknown Ur Amphetamines Screen Negative ng/mL (Negative) 12/14/21 Unknown U Benzodiazepines Scrn Negative ng/mL (Negative) 12/14/21 Unknown Urine Cocaine Screen Negative ng/mL (Negative) 12/14/21 Unknown U Marijuana (THC) Screen Positive ng/mL (Negative) H 12/14/21 Unknown Discharge Plan Discharge Patient Disposition: Left Against Medical Advice Clinical Impression: Acute metabolic encephalopathy, Coronary artery disease, CVA (cerebral vascular accident), Peripheral vascular disease, Acute kidney injury, Hyperglycemia, Closed head injury Condition: Stable Prescriptions: No Action Bevespi Aerosphere 9-4.8 mcg HFA aerosol inhaler 2 puff inhalation BID Qty: 10.7 5RF gabapentin 600 mg tablet 600 mg PO BEDTIME 0RF paroxetine HCl 10 mg tablet 10 mg PO QAM 0RF tizanidine 4 mg tablet 4 mg PO BEDTIME 0RF clopidogrel 75 mg tablet 75 mg PO QAM 0RF omeprazole 20 mg capsule,delayed release(DR/EC) 20 mg PO QAM 0RF albuterol sulfate [Ventolin HFA] 90 mcg/actuation HFA aerosol inhaler 2 inh INHALATION Q6H PRN (Reason: Shortness Of Breath) 0RF multivitamin Tablet 1 tab PO QAM 0RF aspirin 81 mg Tablet,Delayed Release (Dr/Ec) 81 mg PO QAM 0RF ferrous sulfate [iron] 325 mg (65 mg iron) Tablet 325 mg PO EVERY OTHER DAY 0RF budesonide 0.5 mg/2 mL suspension for nebulization 0.5 mg inhalation BID PRN (Reason: Shortness Of Breath Or Wheezing) 0RF Robhots(1,000mg Cbd 100mg Phf) See Rx Instructions .ROUTE .COMPLEX 0RF Rx Instructions: takes 1/4 to 1/2 gummy at bedtime prn atorvastatin 80 mg tablet 80 mg PO DAILY Qty: 60 0RF Vitamin D-3 with Aloe 120-1,000-10 mg-unit-mg Tablet 1 tab PO EVERY OTHER DAY 0RF amlodipine 5 mg tablet 5 mg PO DAILY Qty: 30 0RF Lasix 40 mg Tablet 40 mg PO DAILY 0RF potassium chloride 10 mEq Tablet Extended Release 10 meq PO DAILY 0RF ibuprofen 200 mg Tablet 800 mg PO BEDTIME PRN (Reason: Pain) 0RF carvedilol 12.5 mg tablet 12.5 mg PO BID 0RF Referrals: KENDY CASTILLO MD [Primary Care Provider] - Coding Level of Care Code ED Assembly Person for Chg Fwd Exam Comprehensive
[2021-12-14 10:36] LABS: ABG PCO2 39.1 mmHg (35-45); ABG PH Result 7.41 (7.35-7.45); Arterial Blood Gas Hematocrit 29.3 % (42-52); Base Excess ABG 0.2 mmol/L (-2.0-2.0); Blood Gas Allen Test Pos; Blood Gas Operator Identificat glc; Blood Gas Sample Site Radial, right; Blood Gas Sample Type Arterial; Carboxyhemoglobin 7.3 %THgb (0.4-20.1); HCO3 ABG 24.8 mmol/L (22-26); HGB O2 Sat 92.4 % (95-100); Ionized Calcium Level - ABG 1.3 mmol/L (1.1-1.4); Methemoglobin 0.9 % (0.4-1.5); Oxygen Device NC; Oxygen Saturation ABG > 100.0; Potassium Level - ABG 4.4 mmol/L (3.5-5.0); Total Hemoglobin 9.5 g/dL (14-18)
[2021-12-14 10:42] LABS: Basophils # 0.1 10^3/uL (0.0-0.1); Basophils % 0.6 %; Eosinophils # 0.4 10^3/uL (0.0-0.8); Eosinophils % 4.6 %; Hematocrit 30.8 % (42.0-52.0); Lymphocytes # 1.2 10^3/uL (0.8-4.8); Lymphocytes % 13.9 %; Mean Corpuscular HGB Conc 29.2 g/dL (30.0-36.0); Mean Corpuscular Hemoglobin 24.3 pg (28.0-34.0); Mean Corpuscular Volume 83.2 fl (80-94); Mean Platelet Volume 9.4 fL (7.4-10.4); Monocytes # 0.6 10^3/uL (0.2-0.9); Monocytes % 6.9 %; Neutrophils # 6.51 10^3/uL (1.8-7.7); Neutrophils % 73.7 %; Nucleated Red Blood Cells % 0 %; Platelet Count 290 10^3/cmm (130-400); Red Cell Distribution Width 14.2 % (12.1-15.1); White Blood Count 8.8 10^3/uL (4.0-10.0)
--- NOTE | 2021-12-14 10:59 | CT_ITS ---
WS: [id number] CT CHEST, ABDOMEN, AND PELVIS TECHNIQUE: Contrast-enhanced CT of the chest, abdomen, and pelvis with coronal and sagittal reformatt ed images. CLINICAL INFORMATION: ams/abd pain COMPARISON: CTA chest January 11, [address] abdomen pelvis DLP: 1288.[address] scans at [facility] use at least one of these dose optimization techniques: automated e xposure control; mA and/or kV adjustment per patient size (includes targeted exams where dose is matc hed to clinical indication); or iterative reconstruction. CT CHEST: Both lungs are well aerated. Moderate chronic emphysematous changes. No acute pulmonary infiltrates. No focal pneumonia or pleural fluid. Fibrosis in the lung apices. Noncalcified nodule LEFT upper lobe measuring 4 mm. Normal caliber thoracic aorta. Proximal main pulmonary arteries are normal. Coronary calcification. N o evidence of thoracic aortic dissection. No mediastinal or hilar lymphadenopathy. No axillary lympha denopathy. CT ABDOMEN AND PELVIS: Mild diffuse fatty infiltration of the liver. Normal portal vein and splenic vein. Fatty atrophy of t he pancreas. Normal spleen. Normal GE junction. Adrenal glands are normal. Normal renal parenchymal e nhancement. Small bilateral renal cysts. Celiac and SMA are patent. Mild to moderate calcification. Infrarenal RIGHT aortic stent with additional RIGHT external iliac stent. Prior RIGHT occluded iliac graft. Normal caliber abdominal aorta. No evidence of enlarging aortic aneurysm. Removal of previousl y described aortic endograft and LEFT iliac component. Excluded aneurysm sac measures 1.5 x 2.5 cm AP by transverse in maximum dimension today. Normal sigmoid colon. Moderate transverse colon constipation. No evidence of small or large bowel obs truction. Mild urine distention of the bladder. Postoperative changes RIGHT groin from bypass graft. Hypertrophic changes thoracic spine and lumbar spine. CT/CT chest abd pel w con* IMPRESSION: 1. No acute chest findings. 2. Removal of previous aortic endograft with biiliac extension. Abandoned RIGH T iliac graft. 3. Interval placement of RIGHT infrarenal aortoiliac stent graft. No evidence of enlarging abdominal aorta or aortic aneurysm. 4. RIGHT external iliac stent appears patent. 5. Diffuse infiltration the liver. 6. No acute appearing abdomen or pelvic findings.
[2021-12-14 11:02] LABS: Alanine Aminotransferase 17 U/L (0-41); Alkaline Phosphatase 130 IU/L (40-130); Anion Gap 16.4 (5-19); Aspartate Amino Transferase 15 U/L (0-40); Blood Urea Nitrogen 32 mg/dL (8-23); Calcium 10.1 mg/dL (8.5-10.5); Carbon Dioxide 25 mmol/L (22-29); Chloride 101 mmol/L (98-107); Creatine Phosphokinase 92 U/L (39-308); Globulin 2.5 g/dL (1.3-4.6); Glucose 164 mg/dL (65-115); Lipase 39 U/L (13-60); Magnesium 2.2 mg/dL (1.7-2.3); Osmolality Calculated 297 mOsm/kg (285-295); Potassium 4.4 mmol/L (3.5-5.1); Sodium 138 mmol/L (136-145); Total Bilirubin 0.2 mg/dL (0.15-1.2); Total Protein 7.5 g/dL (6.6-8.7)
[2021-12-14 11:03] LABS: Lactic Sepsis W/Reflex 2.2 mmol/L (0.5-2.2)
[2021-12-14 11:14] LABS: Troponin(5th) Baseline 21 ng/L (0-15)
[2021-12-14 11:36] LABS: Salicylate 0.4 mg/dL (3-10)
[2021-12-14 11:38] LABS: Acetaminophen < 5.0 ug/mL (10-30)
[2021-12-14 11:51] LABS: Ammonia 15 umol/L (16-60)
[2021-12-14] MEDS: iodixanol 320 mg/mL 100mL Btl IV (12:07)
--- NOTE | 2021-12-14 12:24 | ECG_ITS ---
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 Measurements Intervals [place] Rate: 68 P: 82 [place]: 186 QRS: 80 QRSD: 84 T: 78 QT: 415 QTc: 444 Interpretive Statements SINUS RHYTHM Compared to ECG 12/14/2021 12:25:22 Sinus bradycardia no longer present Electronically Signed On 12-15-2021 5:51:28 TOBACCO WEIGHER by Isabella Forman M.D. [id number]
[2021-12-14 12:27] LABS: Reflex Lactate Order REFLEX LACTIC ORDERD
[2021-12-14 13:07] LABS: Lactic Acid level (Lactate) 1.4 mmol/L (0.5-2.2)
--- NOTE | 2021-12-14 13:11 | P.HP_ITS ---
Providers/Chief Complaint Primary Care Provider: Ra Orozco MD Chief Complaint: stoke like symptoms History of Present Illness Ronni Torres is a 76 year old male who was brought in by his for decreased responsiveness. She reports yesterday after coming home from work he had reported to her that he had fallen and hit his head on the ice. He seemed lethargic and poorly responsive at times, but did a little bit better through the day. They went to sleep, and this morning he seemed significantly lethargic again so she brought him into the emergency department. reports he has not had any fever. He did not seem to be focally weak on one side or the other. He had had a stroke in the last several years affecting his right side but most of his deficit gone away. She reports the last surgical procedure he had was stenting to his carotids in August and September. Patient himself denies any chest discomfort. From what I gather he has some chronic back pain. Although he was fairly unresponsive to the emergency department physician other than to painful stimuli I was able to get him to answer some questions and he appeared groggy with slow speech that was slightly slurred. No nausea, vomiting. Review of Systems General: Reports: 10 or more systems reviewed and unremarkable except in HPI and below Const: Reports: fatigue and malaise; Denies: fever(s) Eyes: Denies: change in vision ENMT: Denies: throat pain Card: Denies: chest pain Resp: Denies: dyspnea GI: Denies: abdominal pain, nausea, vomiting, hematochezia or melena : Denies: flank pain Musc: Reports: muscle weakness Skin/Breast: Denies: rash Neuro: Reports: numbness in extremities and weakness in extremities; Denies: headache(s) Psych: Denies: anxiety or depression Endo: Reports: tired all the time; Denies: polyuria Didier/Lymph: Denies: easy bruising All/Imm: Denies: urticaria Medications/Allergies Home Medications Medication Instructions Recorded Confirmed Last Taken Type albuterol sulfate 90 mcg/actuation 2 inh INHALATION Q6H PRN 09/07/20 12/14/21 09/07/20 History aerosol inhaler (Ventolin HFA) clopidogrel 75 mg tablet 75 mg PO QAM 09/07/20 12/14/21 12/14/21 History gabapentin 600 mg tablet 600 mg PO BEDTIME 09/07/20 12/14/21 12/13/21 History omeprazole 20 mg capsule,delayed 20 mg PO QAM 09/07/20 12/14/21 12/14/21 History release paroxetine HCl 10 mg tablet 10 mg PO QAM 09/07/20 12/14/21 12/14/21 History tizanidine 4 mg tablet 4 mg PO BEDTIME 09/07/20 12/14/21 12/13/21 History Robhots(1,000mg Cbd 100mg Phf) See Rx Instructions .ROUTE .COMPLEX 07/12/21 12/14/21 Unknown History aspirin 81 mg tablet,delayed 81 mg PO QAM 07/12/21 12/14/21 12/14/21 History release budesonide 0.5 mg/2 mL suspension 0.5 mg INHALATION BID PRN 07/12/21 12/14/21 Unknown History for nebulization ferrous sulfate 325 mg (65 mg 325 mg PO EVERY OTHER DAY 07/12/21 12/14/21 12/14/21 History iron) tablet (iron) multivitamin 1 tab PO QAM 07/12/21 12/14/21 12/14/21 History atorvastatin 80 mg tablet 80 mg PO DAILY #60 tab 07/14/21 12/14/21 12/13/21 Rx glycopyrrolate 9 mcg-formoterol 2 puff INHALATION BID #10.7 g 09/30/21 12/14/21 12/14/21 Rx 4.8 mcg HFA aerosol inhaler (Bevespi Aerosphere) amlodipine 5 mg tablet 5 mg PO DAILY #30 tab 11/25/21 12/14/21 12/14/21 Rx calcium cmb 1 tab PO EVERY OTHER DAY 11/25/21 12/14/21 12/13/21 History no.1-F8-J-2-PT-Q90-aloe 120 mg-1,000 unit-10 mg tablet (Vitamin D-3 with Aloe) carvedilol 12.5 mg tablet 12.5 mg PO BID 12/14/21 12/14/21 12/14/21 History furosemide 40 mg tablet (Lasix) 40 mg PO DAILY 12/14/21 12/14/21 12/13/21 History ibuprofen 200 mg tablet 800 mg PO BEDTIME PRN 12/14/21 12/14/21 Unknown History potassium chloride 10 mEq 10 meq PO DAILY 12/14/21 12/14/21 12/13/21 History tablet,extended release Allergies Allergy/AdvReac Type Severity Reaction Status Date / Time diphenhydramine Allergy ADR-Shakine Verified 11/25/21 12:05 [From Benadryl] ss propoxyphene [From Darvon] Allergy Unconscious Verified 11/25/21 12:05 adhesive tape AdvReac ALGY-Rash Verified 11/25/21 12:05 PFSH Acute PFSH: Medical History (Updated 12/14/21 @ 13:32 by Heath Lopez MD) Anxiety Aortitis Carotid artery disease Cataract Chronic back pain COPD (chronic obstructive pulmonary disease) Coronary artery disease CVA (cerebral vascular accident) GERD (gastroesophageal reflux disease) History of common carotid artery stent placement HTN (hypertension) Hyperlipidemia Lung nodules Peripheral vascular disease Prostate cancer Restless leg Streptococcus group B infection Surgical History History of ankle surgery History of appendectomy History of prostate surgery Hx of aortic valve repair Hx of ascending aorta replacement Hx of cataract surgery Hx of tonsillectomy S/P PTCA (percutaneous transluminal coronary angioplasty) Family History Brother Heart attack CAD (coronary artery disease) Chronic kidney disease (CKD) Stroke Father CAD (coronary artery disease) Stroke Sister Stroke Mother Stroke Other Heart disease Denies family history of Diabetes Clotting disorder Dementia Suicide Anesthesia complication Bleeding disorder Lung disease Cancer Social History Smoking and tobacco status: current some day smoker cigarettes Packs smoked per day: 0.5 Years cigarettes smoked: 65 [ Other cigarette details: Hx of 4 PPD x 30 Years] Quit status (tobacco): has quit using tobacco Second hand smoke exposure: Yes Smoking risk assessment/counseling performed?: Yes Alcohol intake: current Alcohol intake frequency: holidays/special occasions only Alcohol type: beer Counseling given: No Counseling given: Yes Lives independently: Yes Household members: spouse Marital status: Current occupational status: retired History of recent travel: No Current gender identity: Male Vitals/I&O/Wt Last Vital Signs Temp 97.1 F L 12/14/21 11:06 Pulse 53 L 12/14/21 11:45 Resp 20 H 12/14/21 11:45 BP 158/49 12/14/21 11:45 Pulse Ox 96 12/14/21 11:45 Weight last 48 hrs Weight 68.039 kg Physical Exam Narrative: General exam is a white male, who appears very tired, who with stimulation and open his eyes and answer a few questions with limited conve rsation. HEENT: Pupils equally round. Oropharynx clear. Mucous membranes dry Neck is supple no lymphadenopathy or thyromegaly Cardiovascular regular rate and rhythm, heart sounds distant Lungs clear to auscultation bilaterally Abdomen soft nontender positive bowel sounds. No obvious organomegaly Extremities no cyanosis clubbing or edema, cap refill brisk deferred Neuro: Difficult to delineate any specific focal deficit. He can move all extremities. He has some difficulty cooperating with the exam. I do not see a definite facial droop. Speech is slightly slurred. Mainly soft. Skin no rash Data : 12/14/21 Unknown 12/14/21 Unknown Other Labs: CT chest abdomen pelvis demonstrates no obvious fluid collection consistent with infection. Multiple aortic grafts. Fatty infiltration of the liver. Head CT no evidence of hemorrhage. Moderate small vessel changes, multiple chronic lacunar infarcts unchanged from previous, small right scalp soft tissue edema Chest x-ray no acute findings ABG demonstrated pH 7.41, PCO2 of 39, PO2 on 216 on 4 L Lactic acid level is normal Calcium is 10.1 LFTs normal Ammonia 15 Troponin XX 1 with repeat of 19 Lipase normal Salicylate level and acetaminophen level undetectable Urinalysis negative EKG sinus bradycardia, normal axis, no acute changes, borderline LVH A&P Assessment and plan (1) Acute metabolic encephalopathy: Etiology not absolutely clear. He may have fallen and hit his head, which could have contributed and this could be a postconcussive episode. However, he has some acute kidney injury and this could precipitate increased problems with the Neurontin he takes, or even his muscle relaxant. Cannot completely rule out CVA although I think this is much less likely as he does not have any focal symptoms currently. Urine drug screen is pending At this point we will withhold muscle relaxer, Neurontin. Hydrate. Neurologic checks and seizure precautions. I suspect he will slowly improve. Check B12 and TSH Status: Acute (2) Acute kidney injury: Hydrate Recheck renal function tomorrow Consider imaging should it not improve Status: Acute (3) CVA (cerebral vascular accident): Past history of CVA and fairly recent carotid artery stenting. Continue Plavix, aspirin Carotid artery ultrasound to ensure stents are open Status: Acute (4) Hyperglycemia: Check hemoglobin A1c Status: Acute (5) Iron deficiency: Has known iron deficiency anemia. Check stool Hemoccult No need for repeat iron studies currently. Status: Acute (6) COPD (chronic obstructive pulmonary disease): DuoNeb as needed Status: Acute Qualifiers: COPD type: emphysema Emphysema type: centrilobular Qualified Code(s): J43.2 - Centrilobular emphysema (7) Peripheral vascular disease: Extensive peripheral vascular disease as well as aortic replacement. Past history of group B strep aortitis. Do not believe he has any active infection currently. We will go ahead and draw blood culture, in case this changes overnight. Status: Acute Plan Hypertension. He had some bradycardia on admission. Check echocardiogram. Reduce carvedilol. Reassess blood pressure in the morning for restart of Norvasc. Multiple other medical problems as outlined in his past medical history Full code Heparin will suffice for DVT prophylaxis. Attestations Medical Necessity Statement*: Will need less than 2 midnight stay for ob servation secondary to acute encephalopathy. 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
[2021-12-14 13:15] LABS: Add Urine Microscopic? NO; Charge for UA Resulting for Rev
[2021-12-14 13:26] LABS: Bilirubin Urine Neg (Negative); Blood Urine Neg (Negative); Glucose Urine UA Norm (Normal); Ketones Urine Negative (Negative); Leukocyte Esterase Urine Negative (Negative); Nitrate Urine Negative (Negative); Protein Urine Neg (Negative); Specific Gravity, Urine 1.005 (1.005-1.030); Urine Appearance Clear (CLEAR); Urine Color Yellow (Yellow); Urobilinogen Urine Neg (Negative); pH Urine 7 (5-7)
[2021-12-14 13:43] LABS: Amphetamines Screen Urine Negative (Negative); Barbiturates Screen Urine Negative (Negative); Benzodiazepines Screen Urine Negative (Negative); Cocaine Screen Urine Negative (Negative); Opiate Screen Urine Negative (Negative); PCP Screen Urine Negative (Negative); THC Screen Urine Positive (Negative)
[2021-12-14 14:26] LABS: Estmated Average Glucose 137; Hemoglobin A1C 6.4 % (4.0-6.0)
[2021-12-14 14:27] LABS: Thyroid Stimulating Hormone 1.99 uIU/mL (0.27-4.20); Vitamin B12 741 pg/mL (232-1245)
--- NOTE | 2021-12-14 15:05 | PC.NURSE ---
Decided to leave ama, had a discussion re the importance of staying for continued treatment. Refused to sign AMA form.
--- NOTE | 2021-12-15 06:43 | W.PM.EVENTAC ---
Event Note Event Note: Patient left AMA after discussion with ED staff.
== END 2021-12-14 15:09 | disposition left against medical advice (07) ==
PROVIDERS: Internal Medicine; Emergency Provider Family Medicine; PCP Internal Medicine
DX: I63.9 Cerebral infarction, unspecified (principal); S09.8XXA Other specified injuries of head, initial encounter; N17.9 Acute kidney failure, unspecified; I73.9 Peripheral vascular disease, unspecified; I25.10 Atherosclerotic heart disease of native coronary artery without angina pectoris; G93.41 Metabolic encephalopathy; R73.9 Hyperglycemia, unspecified; J44.9 Chronic obstructive pulmonary disease, unspecified; Z86.73 Personal history of transient ischemic attack (TIA), and cerebral infarction without residual deficits; E78.5 Hyperlipidemia, unspecified; I10 Essential (primary) hypertension; Z85.46 Personal history of malignant neoplasm of prostate; F17.210 Nicotine dependence, cigarettes, uncomplicated; W00.0XXA Fall on same level due to ice and snow, initial encounter
CPT/HCPCS: 36600; 51702; 70450; 71045; 71260; 74177; 80051; 80053; 80306; 80307; 81003; 82140; 82330; 82550; 82607; 82805; 83036; 83605; 83690; 83735; 84443; 84484; 85025; 87040; 93005; 99284; Q9967

== ENCOUNTER 2023-04-03 12:26 | Inpatient (IN) | payer MEDICARE, OTHER, SELFPAY ==
[2023-04-03] VITALS (59 sets, daily range): BP systolic 88–201; BP diastolic 46–111; PULSE 44–72; RESP 12–22; TEMP 36.8; O2SAT 89–99; BMI 24.2
--- NOTE | 2023-04-03 12:53 | ECG_ITS ---
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 Measurements Intervals [place] Rate: 54 P: 74 ND: 168 QRS: 69 QRSD: 90 T: 62 QT: 397 QTc: 377 Interpretive Statements SINUS BRADYCARDIA NONSPECIFIC ST & T-WAVE ABNORMALITY Compared to ECG 12/14/2021 13:24:42 T-wave abnormality now present Sinus rhythm no longer present Electronically Signed On 04-03-2023 17:24:28 CDT by Matt Verma M.D. [id number]
--- NOTE | 2023-04-03 13:00 | ED_ITS ---
HPI - Weakness General: Chief complaint: Weakness Stated complaint: general weakness, wobbly, Time Seen by Provider: 04/03/23 12:54 History of Present Illness: Mr. Torres is a 78-year-old gentleman with complex past medical history including CAD, stroke, prior carotid surgery, aortic surgery, hypertension, hyperlipidemia, prior stroke presented to the emergency department for evaluat ion of abnormal feeling. He notes onset of symptoms 3 weeks ago without known provoking event. He feels generally weak and with significantly decreased exertional tolerance and exercise tolerance. At times he feels lightheaded dizzy. He has noticed that his heart rate varies significantly and that his blood pressures been higher than normal. No changes in medications or supplements. Intensity of symptoms moderate however become severe at times. No other specific changes in health, exacerbating, or alleviating factors identified. Onset (ago): week(s) Duration: constant Location: generalized Severity: moderate Relieving factors: none Exacerbating factors: exertion Associated symptoms: Reports confusion, short of breath and other Review of Systems General: Reports: 10 or more systems reviewed and unremarkable except in HPI and below Neuro: Reports: confusion PFSH ED PFSH: Medical History Anxiety Aortitis Carotid artery disease Cataract Chronic back pain COPD (chronic obstructive pulmonary disease) Coronary artery disease CVA (cerebral vascular accident) GERD (gastroesophageal reflux disease) History of common carotid artery stent placement HTN (hypertension) Hyperlipidemia Lung nodules Peripheral vascular disease Prostate cancer Restless leg Streptococcus group B infection Surgical History History of ankle surgery History of appendectomy History of prostate surgery Hx of aortic valve repair Hx of ascending aorta replacement Hx of cataract surgery Hx of tonsillectomy S/P PTCA (percutaneous transluminal coronary angioplasty) Family History Brother Heart attack CAD (coronary artery disease) Chronic kidney disease (CKD) Stroke Father CAD (coronary artery disease) Stroke Sister Stroke Mother Stroke Other Heart disease Denies family history of Diabetes Clotting disorder Dementia Suicide Anesthesia complication Bleeding disorder Lung disease Cancer Social History Smoking and tobacco status: current some day smoker cigarettes Packs smoked per day: 0.5 Years cigarettes smoked: 65 [ Other cigarette details: Hx of 4 PPD x 30 Years] Quit status (tobacco): has quit using tobacco Second hand smoke exposure: Yes Smoking risk assessment/counseling performed?: Yes Alcohol intake: current Alcohol intake frequency: holidays/special occasions only Alcohol type: beer Counseling given: No Substance/Drug Use: current Substance/Drug use frequency: daily Other substance/drug use details: Chewables Counseling given: Yes Lives independently: Yes Household members: spouse Marital status: Current occupational status: retired Do you think of yourself as: Straight/Heterosexual Current gender identity: Male Physical Exam Const: COMMON NORMALS: patient oriented x3 and alert GENERAL APPEARANCE: cooperative and well developed HENMT: COMMON NORMALS: normocephalic and atraumatic HEAD & SCALP: normocephalic and atraumatic Eye: COMMON NORMALS: conjunctivae normal CONJUNCTIVA: Yes conjunctivae normal SCLERA: sclerae normal Neck/C-Spine: COMMON NORMALS: supple GENERAL: Yes trachea midline Resp: COMMON NORMALS: clear to auscultation bilaterally EFFORT & INSPECTION: Yes able to speak in complete sentences AUSCULTATION: clear to auscultation bilaterally Cardio: COMMON NORMALS: regular rhythm RATE: bradycardic RHYTHM: regular rhythm GI: COMMON NORMALS: Soft to palpation PALPATION: Yes Soft to palpation and No Tenderness to palpation present (GI) Extremity: GENERAL: Yes normal exam except as noted and No edema Neuro: COMMON NORMALS: patient oriented x3, CN's II-XII intact bilaterally, moves all extremities, no focal motor deficits and no sensory deficits noted SENSORIUM/ORIENTATION: Yes alert and No Orientation impaired Psych: COMMON NORMALS: mental status grossly normal and Normal thought process present THOUGHT PROCESS: Normal thought process present Course Vital Signs: Vital signs: Vital Signs Temperature 98.1 F 04/06/23 11:36 Pulse Rate 59 L 04/06/23 11:36 Respiratory Rate 18 04/06/23 11:36 Blood Pressure 182/69 04/06/23 11:36 Pulse Oximetry 95 04/06/23 11:36 Oxygen Delivery Me thod Room Air 04/06/23 11:36 MDM - Weakness Medical Decision Making 78-year-old gentleman presenting with generalized illness. No focal deficits outside of baseline, he is nontoxic. EKG notable for sinus bradycardia with nonspecific ST segment abnormalities, normal axis and intervals, no STEMI. Labs with no leukocytosis, normal hemoglobin and platelet count. Metabolic panel with mild elevation in creatinine, no significant mitral arrangement. Elevated initial troponin with negative range 2-hour delta. No UTI. Chest x-ray with no lobar consolidation or pneumothorax. CT head negative for obvious acute pathology. Overall no clear etiology of symptoms. Patient has persistent bradycardia despite only being on minimal dose of beta-hever. This certainly could cause the symptoms that the patient describes as well as severity of symptoms it is reasonable to observe the patient in the inpatient setting. The results of ED evaluation were discussed with the patient including plan for admission due to requirement for level of care not available if discharged to prevent significant worsening/deterioration. Patient agreeable with plan. Discussed with hospitalist service who was agreeable to admit patient. Medical Records I reviewed the patient's medical records. Lab Data I reviewed the patient's lab results. 04/06/23 02:56 04/06/23 02:56 Radiology Impressions Chest X-Ray 04/03/23 13:38 IMPRESSION: Unremarkable frontal portable chest x-ray. Head CT 04/03/23 13:49 IMPRESSION: 1. No acute intracranial hemorrhage, mass effect or midline shift. 2. Areas of chronic encephalomalacia in the frontal lobe and in the ganglia capsular regions bilaterally. 3. Involutional changes of the brain in keeping with the patient's age, with findings of chronic microvascular ischemic disease. 4. Left mastoid effusion. Pulmonary Perfusion Imaging 04/05/23 11:36 IMPRESSION: Low probability. Laboratory Results WBC 8.1 10^3/uL (4.0-10.0) 04/03/23 14:04 RBC 5.56 10^6/uL (4.1-5.3) H 04/03/23 14:04 Hgb 15.7 g/dL (11.7-16.6) 04/03/23 14:04 Hct 49.5 % (42.0-52.0) 04/03/23 14:04 MCV 89.0 fl (80-94) 04/03/23 14:04 MCH 28.2 pg (28.0-34.0) 04/03/23 14:04 MCHC 31.7 g/dL (30.0-36.0) 04/03/23 14:04 RDW 13.2 % (12.1-15.1) 04/03/23 14:04 Plt Count 209 10^3/cmm (130-400) 04/03/23 14:04 MPV 9.6 fL (7.4-10.4) 04/03/23 14:04 Neut % (Auto) 68.7 % 04/03/23 14:04 Lymph % (Auto) 18.6 % 04/03/23 14:04 Whitman % (Auto) 6.4 % 04/03/23 14:04 Eos % (Auto) 5.6 % 04/03/23 14:04 Baso % (Auto) 0.5 % 04/03/23 14:04 Neut # (Auto) 5.55 10^3/uL (1.8-7.7) 04/03/23 14:04 Lymph # (Auto) 1.5 10^3/uL (0.8-4.8) 04/03/23 14:04 Whitman # (Auto) 0.5 10^3/uL (0.2-0.9) 04/03/23 14:04 Eos # (Auto) 0.5 10^3/uL (0.0-0.8) 04/03/23 14:04 Baso # (Auto) 0.0 10^3/uL (0.0-0.1) 04/03/23 14:04 Nucleated RBC % (auto) 0 % 04/03/23 14:04 Nucleated RBCs # 0.0 /100WBC 04/03/23 14:04 D-Dimer 1.05 ug/mIFEU (0-0.59) H 04/03/23 14:04 Sodium 139 mmol/L (136-145) 04/05/23 03:20 Potassium 4.5 mmol/L (3.5-5.1) 04/05/23 03:20 Chloride 104 mmol/L (98-107) 04/05/23 03:20 Carbon Dioxide 25 mmol/L (22-29) 04/05/23 03:20 Anion Gap 14.5 (5-19) 04/05/23 03:20 BUN 29 mg/dL (8-23) H 04/05/23 03:20 Creatinine 1.4 mg/dL (0.7-1.2) H 04/05/23 03:20 GFR Calculation Not Reportable 04/05/23 03:20 Glucose 103 mg/dL (65-115) 04/05/23 03:20 Calculated Osmolality 294 mOsm/kg (285-295) 04/05/23 03:20 Calcium 8.9 mg/dL (8.5-10.5) 04/05/23 03:20 Magnesium 2.1 mg/dL (1.7-2.3) 04/03/23 14:04 Total Bilirubin 0.2 mg/dL (0.15-1.2) 04/03/23 14:04 AST 18 U/L (0-40) 04/03/23 14:04 ALT 17 U/L (0-41) 04/03/23 14:04 Alkaline Phosphatase 122 U/L (40-130) 04/03/23 14:04 Troponin T Baseline 91 ng/L (0-15) H 04/03/23 14:04 Troponin T 120 Minute 83.08 ng/L (0-15) H 04/03/23 16:14 Delta Troponin T -7.92 ABS# (0-10) L 04/03/23 16:14 Troponin T Hi Sens 6Hr 69.61 ng/L (0-15) H 04/03/23 20:06 Troponin T Hi Sens 6Hr Delta -21.39 ng/L (0-12) L 04/03/23 20:06 NT-Pro-B Natriuret Pep 626 pg/mL (0-450) H 04/03/23 14:04 Total Protein 7.8 g/dL (6.6-8.7) 04/03/23 14:04 Albumin 4.8 g/dL (3.5-5.2) 04/03/23 14:04 Globulin 3.0 g/dL (1.3-4.6) 04/03/23 14:04 TSH 2.30 uIU/mL (0.27-4.20) 04/03/23 14:04 Urine Color Colorless (Yellow) 04/03/23 14:50 Urine Appearance Clear (CLEAR) 04/03/23 14:50 Urine pH 6 (5-7) 04/03/23 14:50 Ur Specific [place] 1.010 (1.005-1.030) 04/03/23 14:50 Urine Protein Neg (Negative) 04/03/23 14:50 Urine Glucose (UA) Norm (Normal) 04/03/23 14:50 Urine Ketones Negative (Negative) 04/03/23 14:50 Urine Blood Neg (Negative) 04/03/23 14:50 Urine Nitrate Negative (Negative) 04/03/23 14:50 Urine Bilirubin Neg (Negative) 04/03/23 14:50 Urine Urobilinogen Norm mg/dL (Negative) 04/03/23 14:50 Ur Leukocyte Esterase Negative (Negative) 04/03/23 14:50 Coronavirus 229E (PCR) Not detected (NOT DETECT) 04/03/23 15:00 SARS-CoV-2 (PCR) Not detected (NOT DETECT) 04/03/23 15:00 Discharge Plan Discharge Patient Disposition: Placed in Observation Admit Provider: Andrea Weiss Clinical Impression: Symptomatic bradycardia Discharge Diet: Cardiac Discharge Activity: Increase activity as tolerated and Limit activity as instructed Coding Level of Care Code 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
--- NOTE | 2023-04-03 13:38 | XR_ITS ---
WS: [id number] EXAMINATION: XR chest 1V portable [id number] REASON FOR EXAM: bradycardia COMPARISON: 12/14/2021 ORDER DATE: 04/03/2023 1:55 PM TECHNIQUE: A single, portable frontal chest x-ray was obtained. X-RAY FINDINGS: The lungs are clear. Pleural spaces are clear. No pleural effusions or pneumothorax. Cardiomediastinal silhouette is normal. No evidence for pulmonary edema. Soft tissue and osseous structures are unremarkable. No tubes or lines are present. XR/XR chest 1V portable [id number] IMPRESSION: Unremarkable frontal portable chest x-ray.
--- NOTE | 2023-04-03 13:49 | CTR_ITS ---
PROCEDURE INFORMATION: Exam: CT Head Without Contrast Exam date and time: 04/03/2023 2:12 PM Age: 78 years old Clinical indication: Altered mental status/memory loss and other: Confusion, lightheaded TECHNIQUE: Imaging protocol: Computed tomography of the head without contrast. Radiation optimization: All CT scans at this facility use at least one of these dose optimization techniques: automated exposure control; mA and/or kV adjustment per patient size (includes targeted exams where dose is matched to clinical indication); or iterative reconstruction. REPORTING DATA: Count of CT and Cardiac NM exams in prior 12 months: This patient has received 0 known CTs and 0 known cardiac nuclear medicine studies in the 12 months prior to the current study. COMPARISON: CT head wo con* [id number] 12/14/2021 10:41 AM RADIATION DOSE METRICS: Total DLP (mGy-cm): 1179.4 FINDINGS: Brain: There are areas of chronic encephalomalacia in the frontal lobe and in the ganglia capsular regions bilaterally. There is no acute intracranial hemorrhage, mass effect or midline shift. Mcqueen-white differentiation is preserved. There are global involutional changes of the brain which are in keeping with the patient's age. Periventricular hypodensities are nonspecific but most likely reflect chronic microvascular ischemic disease. No abnormal extra-axial fluid collections are identified. Cerebral ventricles: No ventriculomegaly. Paranasal sinuses: The visualized sinuses are unremarkable. Mastoid air cells: There is a small left mastoid effusion. Bones/joints: Unremarkable. No acute fracture. Soft tissues: Unremarkable. CT/CT head wo con* [id number] IMPRESSION: 1. No acute intracranial hemorrhage, mass effect or midline shift. 2. Areas of chronic encephalomalacia in the frontal lobe and in the ganglia capsular regions bilaterally. 3. Involutional changes of the brain in keeping with the patient's age, with findings of chronic microvascular ischemic disease. 4. Left mastoid effusion.
[2023-04-03 14:16] LABS: Basophils % 0.5 %; Eosinophils # 0.5 10^3/uL (0.0-0.8); Eosinophils % 5.6 %; Hematocrit 49.5 % (42.0-52.0); Hemoglobin 15.7 g/dL (11.7-16.6); Lymphocytes # 1.5 10^3/uL (0.8-4.8); Lymphocytes % 18.6 %; Mean Corpuscular HGB Conc 31.7 g/dL (30.0-36.0); Mean Corpuscular Hemoglobin 28.2 pg (28.0-34.0); Mean Platelet Volume 9.6 fL (7.4-10.4); Monocytes # 0.5 10^3/uL (0.2-0.9); Monocytes % 6.4 %; Neutrophils # 5.55 10^3/uL (1.8-7.7); Neutrophils % 68.7 %; Nucleated Red Blood Cells % 0 %; Platelet Count 209 10^3/cmm (130-400); Red Blood Count 5.56 10^6/uL (4.1-5.3); Red Cell Distribution Width 13.2 % (12.1-15.1); White Blood Count 8.1 10^3/uL (4.0-10.0)
[2023-04-03 14:32] LABS: Troponin(5th) Baseline 91 ng/L (0-15)
[2023-04-03 14:39] LABS: Alanine Aminotransferase 17 U/L (0-41); Albumin Level 4.8 g/dL (3.5-5.2); Alkaline Phosphatase 122 U/L (40-130); Anion Gap 18.3 (5-19); Aspartate Amino Transferase 18 U/L (0-40); Blood Urea Nitrogen 22 mg/dL (8-23); Calcium 9.7 mg/dL (8.5-10.5); Carbon Dioxide 23 mmol/L (22-29); Chloride 100 mmol/L (98-107); Glucose 86 mg/dL (65-115); Magnesium 2.1 mg/dL (1.7-2.3); NT Pro B Type Natriuretic Pept 626 pg/mL (0-450); Osmolality Calculated 287 mOsm/kg (285-295); Potassium 4.3 mmol/L (3.5-5.1); Sodium 137 mmol/L (136-145); Total Bilirubin 0.2 mg/dL (0.15-1.2); Total Protein 7.8 g/dL (6.6-8.7)
[2023-04-03 14:54] LABS: Add Urine Microscopic? NO; Charge for UA Resulting for Rev
[2023-04-03 14:56] LABS: Urine Appearance Clear (CLEAR); Urine Color Colorless (Yellow); pH Urine 6 (5-7)
[2023-04-03 14:57] LABS: Bilirubin Urine Neg (Negative); Blood Urine Neg (Negative); Glucose Urine UA Norm (Normal); Ketones Urine Negative (Negative); Leukocyte Esterase Urine Negative (Negative); Nitrate Urine Negative (Negative); Protein Urine Neg (Negative); Urobilinogen Urine Norm (Negative)
--- NOTE | 2023-04-03 15:38 | ECG_ITS ---
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 Measurements Intervals [place] Rate: 46 P: 71 [place]: 191 QRS: 72 QRSD: 88 T: 75 QT: 435 QTc: 381 Interpretive Statements SINUS BRADYCARDIA NONSPECIFIC T-WAVE ABNORMALITY Compared to ECG 04/03/2023 12:53:12 No significant changes Electronically Signed On 04-03-2023 17:25:31 CDT by Matt Verma M.D. [id number]
[2023-04-03 16:39] LABS: Troponin 5 2HR 83.08 ng/L (0-15)
[2023-04-03 16:44] LABS: Troponin 5 2HR Delta -7.92 ABS# (0-10)
[2023-04-03] MEDS: hyDRALAzine 20 mg/mL INJ 1 mL 10 MG IVP (17:02)
--- NOTE | 2023-04-03 17:20 | PM.HP ---
Providers/Chief Complaint Admitting Physician: Andrea Weiss Chief Complaint: general weakness, wobbly, weakness in right leg History of Present Illness 78-year-old gentleman came into ER for assessment due to progressive now severe exertional intolerance, getting quite fatigued and also with chest pain pressure with exertion. Denies chest pain or pressure at rest. In ER heart rates noted somewhat lower than usual, he is on Coreg for his blood pressure, low previously heart rates were in the 50s, currently going into the 40s. Orthostatics negative. He has noticed his blood pressure running on the higher side especially with lower heart rates. He denies any CHF symptoms. 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 He states he feels that he might have a blockage in his coronary arteries. There is no suggestion of infection, he is afebrile, without leukocytosis, no SIRS criteria. Chest x-ray unremarkable. Magnesium and potassium noted WNL, TSH normal. Review of Systems Const: Denies: fever(s), chills, body aches or malaise Card: Reports: chest pain (on exertion); Denies: edema, pre-syncope or orthopnea Resp: Denies: productive cough GI: Denies: abdominal pain, nausea or vomiting Skin/Breast: Denies: rash or new lesions Neuro: Denies: headache(s), weakness in extremities, dizziness or confusion Medications/Allergies Home Medications Medication Instructions Recorded Confirmed Last Taken Type clopidogrel 75 mg tablet 75 mg PO QAM 09/07/20 04/03/23 04/03/23 History gabapentin 600 mg tablet 600 mg PO BEDTIME 09/07/20 04/03/23 04/02/23 History omeprazole 20 mg capsule,delayed 20 mg PO QAM 09/07/20 04/03/23 04/03/23 History release paroxetine HCl 10 mg tablet 10 mg PO QAM 09/07/20 04/03/23 04/03/23 History tizanidine 4 mg tablet 4 mg PO BEDTIME 09/07/20 04/03/23 04/02/23 History aspirin 81 mg tablet,delayed 81 mg PO QAM 07/12/21 04/03/23 04/03/23 History release multivitamin 1 tab PO QAM 07/12/21 04/03/23 04/03/23 History carvedilol 12.5 mg tablet 12.5 mg PO BID 12/14/21 04/03/23 04/03/23 History ibuprofen 200 mg tablet 800 mg PO BEDTIME PRN Pain 12/14/21 04/03/23 Unknown History glycopyrrolate 9 mcg-formoterol 2 puff inhalation BID #10.7 grams 01/09/23 04/03/23 04/03/23 Rx 4.8 mcg HFA aerosol inhaler (BevesHowbuyphere) allopurinol 100 mg tablet 100 mg PO QPM 04/03/23 04/03/23 04/02/23 History nitroglycerin 0.4 mg sublingual 0.4 mg sublingual Q5M PRN Chest 04/03/23 04/03/23 Unknown History tablet Pain Allergies Allergy/AdvReac Type Severity Reaction Status Date / Time diphenhydramine Allergy ADR-Shakine Verified 04/03/23 16:08 [From Benadryl] ss propoxyphene [From Darvon] Allergy Unconscious Verified 04/03/23 16:08 adhesive tape AdvReac ALGY-Rash Verified 04/03/23 16:08 PFSH Acute PFSH: Medical History Anxiety Aortitis Carotid artery disease Cataract Chronic back pain COPD (chronic obstructive pulmonary disease) Coronary artery disease CVA (cerebral vascular accident) GERD (gastroesophageal reflux disease) History of common carotid artery stent placement HTN (hypertension) Hyperlipidemia Lung nodules Peripheral vascular disease Prostate cancer Restless leg Streptococcus group B infection Surgical History History of ankle surgery History of appendectomy History of prostate surgery Hx of aortic valve repair Hx of ascending aorta replacement Hx of cataract surgery Hx of tonsillectomy S/P PTCA (percutaneous transluminal coronary angioplasty) Family History Brother Heart attack CAD (coronary artery disease) Chronic kidney disease (CKD) Stroke Father CAD (coronary artery disease) Stroke Sister Stroke Mother Stroke Other Heart disease Denies family history of Diabetes Clotting disorder Dementia Suicide Anesthesia complication Bleeding disorder Lung disease Cancer Social History Smoking and tobacco status: current some day smoker cigarettes Packs smoked per day: 0.5 Years cigarettes smoked: 65 [ Other cigarette details: Hx of 4 PPD x 30 Years] Quit status (tobacco): has quit using tobacco Second hand smoke exposure: Yes Smoking risk assessment/counseling performed?: Yes Alcohol intake: current Alcohol intake frequency: holidays/special occasions only Alcohol type: beer Counseling given: No Substance/Drug Use: current Substance/Drug use frequency: daily Other substance/drug use details: Chewables Counseling given: Yes Lives independently: Yes Household members: spouse Marital status: Current occupational status: retired Do you think of yourself as: Straight/Heterosexual Current gender identity: Male Vitals/I&O/Wt Last Vital Signs Temp 98.2 F 04/03/23 12:43 Pulse 45 L 04/03/23 14:57 Resp 16 04/03/23 14:57 BP 165/92 04/03/23 14:57 Pulse Ox 95 04/03/23 12:43 O2 Del Method Room Air 04/03/23 12:43 Weight last 48 hrs Weight 68.039 kg Physical Exam Narrative: Accompanied by his . Const: COMMON NORMALS: patient oriented x3 and alert GENERAL APPEARANCE: cooperative ORIENTATION/CONSCIOUSNESS: Yes awake HENMT: COMMON NORMALS: oropharynx normal Neck/C-Spine: COMMON NORMALS: no JVD Resp: COMMON NORMALS: normal respiratory effort and clear to auscultation bilaterally AUSCULTATION: clear to auscultation bilaterally Cardio: COMMON NORMALS: no JVD, regular rhythm, S1 normal heart sound present, S2 normal heart sound present and No murmurs present (Cardio) RHYTHM: regular rhythm HEART SOUNDS: S1 normal heart sound present and S2 normal heart sound present GI: COMMON NORMALS: Normal to inspection, nondistended, normoactive bowel sounds present, Soft to palpation and non-tender PALPATION: Yes Soft to palpation Extremity: COMMON NORMALS: no joint enlargement and no pedal edema Neuro: COMMON NORMALS: patient oriented x3 and moves all extremities SENSORIUM/ORIENTATION: Yes alert Skin: COMMON NORMALS: no rashes or lesions noted GENERAL SKIN EXAM: no rashes or lesions noted Data 04/03/23 14:04 04/03/23 14:04 A&P Assessment and plan (1) Easy fatigability: Very easily fatigable with exertion, with exertional angina, concerned he is progressing to unstable angina, as well which she has noticed with having trouble trying to carry out some light furniture out 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 He denies symptoms of CHF. He states he feels like he has a coronary blockage, and states that usually after work-up he still ends up getting an angiogram needing a stent. Discussed with him certainly angiogram may be associated with risks and we are seeing some additional potential causes with worsening bradycardia, heart rates down into the 40s while on Coreg, however, he does have significant vasculopathy with multivessel bed disease and multiple prior stents including coronary and more recently carotid arteries and so certainly difficult exclude progression of coronary disease possibly also contributing to worsening bradycardia. Unfortunately very difficult for him to also quit smoking. Otherwise work-up in ER so far unremarkable apart from noted to worsen the bradycardia. Does have moderate abnormality of troponin up to 90. 2-hour troponin 83. TSH, potassium, magnesium WNL. Discussed with him cutting down Coreg. Will decrease dose in half at this time. Monitor heart rhythm on telemetry. Additionally discussed with them given his history we will go ahead and obtain consultation with cardiology. Discussed with cardiology, obtain echocardiogram, will keep n.p.o. for now after midnight pending initial assessment. We will check D-dimer, he otherwise should be at lower risk of DVT/PE. (2) Bradycardia: Possible symptomatic bradycardia. Reduce carvedilol dose to 6.25 mg twice daily. Monitor on telemetry. (3) Smoking addiction: We discussed with him smoking cessation for about 4 minutes, he has cut down quite significantly but has difficulty quitting that half pack or so a day he still smokes. States that he did transiently respond to Chantix in the past, but fears that it could have contributed to his stroke and so brought it up as he would not want to go back to it. He would be okay with nicotine lozenges for cravings if needed while here, requested. Plan Exertional angina: As above, reports chest pain/pressure with exertion. Concerned that he may be progressing to unstable angina with possible progression of underlying CAD with multiple prior stents, at risk of life-threatening DC. Additionally chest pain pressure if gets an episode of tachycardia. Multivessel vasculopathy: Including CAD, PAD, history of coronary and more recently carotid stents. Continue LYSSA P. Does not appear to be on statin. Will need to confirm with him why it appears he is no longer taking it. Would avoid ibuprofen. 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 HTN: Monitor blood pressures. Decrease Coreg dose. Would avoid ibuprofen. Chronic back pain COPD: Not in exacerbation History of CVA: With recent carotid artery stents, continue DAPT. Not on statin? GERD HLD Lung nodules Prostate cancer RLS Discussed with ER physician, documentation reviewed. Attestations Medical Necessity Statement*: Place and additional assessment and management of severe fatigability with exertional angina in a gentleman with significant underlying cardiovascular disease with multiple prior stents, worsened bradycardia. Diagnoses Easy fatigability R53.83 Bradycardia R00.1 Smoking addiction F17.200
--- NOTE | 2023-04-03 17:30 | USCV_ITS ---
Ronni Torres Age: 78 Gender: M : 1945 Exam Date: 04/03/2023 02:32 Ordering Phys: Andrea Weiss MD Technologist: MARIE Exam Location: [facility] – [place] Indication: severe fatigue, worsened bradycardia, history of cardiac stenting . BP: 201 / 111 HR: 58 Rhythm: Sinus Technical Quality: Adequate MEASUREMENTS (Male / Female) Normal Values 2D ECHO LVOT Diameter 0.0 cm LV Ejection Fraction MOD 2C 71.0 % LV Ejection Fraction 2C AL 70.3 % LA Diameter 3.4 cm LA Width 2.1 cm LA Height 3.9 cm RA Width 2.5 cm RA Height 3.5 cm Aorta at Sinotubular Diameter 2.3 cm IVC Diameter 1.3 cm M-MODE Aortic Annulus Diameter 3.0 cm LA Ao Ratio MM 1.1 DOPPLER AV Peak Velocity 90.0 cm/s LVOT Peak Velocity 91.0 cm/s AV Area Cont Eq vti 0.0 cm squared AV Area Cont Eq pk 0.0 cm squared MV Peak Velocity 74.0 cm/s MV Area PHT 2.5 cm squared Mitral E to A Ratio 0.8 MV E' Velocity 36.0 cm/s Mitral E to MV E' Ratio 9.5 Mitral E to LV E' Lateral Ratio 7.4 Mitral E to LV E' Septal Ratio 13.6 TV Peak E Velocity 47.0 cm/s PV Peak Velocity 94.0 cm/s RV Acceleration Time 0.1 s RV Ejection Time 0.4 s RV AcT/ET 0.3 FINDINGS Left Ventricle Normal left ventricular cavity size. Normal left ventricular systolic function. Left ventricular ejection fraction is estimated at 65 %. No regional wall motion abnormalities. Normal diastolic function. Right Ventricle Normal right ventricular size and systolic function. RVSP could not be calculated due to incomplete tricuspid regurgitation velocity profile. Right Atrium Normal right atrial size. Left Atrium Normal left atrial size. Mitral Valve Moderate mitral annular calcification. Structurally normal mitral valve. No mitral valve stenosis. No mitral valve regurgitation. Aortic Valve Probably trileaflet aortic valve. No aortic valve stenosis. No aortic valve regurgitation. Tricuspid Valve Structurally normal tricuspid valve. Trace tricuspid valve regurgitation. Pulmonic Valve Structurally normal pulmonic valve. No pulmonary valve stenosis. No significantpulmonary valve regurgitation. Pericardium No pericardial effusion. Aorta Aorta not well visualized. IVC Normal IVC dimension with >50% respiratory change of the inferior vena cava. CONCLUSIONS 1. Normal left ventricular cavity size. Normal left ventricular systolic function. Left ventricular ejection fraction is estimated at 65 %. No regional wall motion abnormalities. Normal diastolic function. 2. Normal right ventricular size and systolic function. 3. Unchanged when compared to study dated 07/12/2021. Isabella Forman MD (Electronically Signed) Final Date: 04 April 2023 13:16 S
[2023-04-03 18:09] LABS: D Dimer 1.05 ug/mIFEU (0-0.59)
--- NOTE | 2023-04-03 19:38 | ECG_ITS ---
[facility] Test Date: 2023-04-03 Pat Name: Ronni Torres Department: Room: 111 Gender: Male [employer]: : 1945 Requested By: Jay Jay Mojica Order Number: [id number] Cristofer MD: Isabella Forman M.D. Measurements Intervals [place] Rate: 56 P: 36 IN: 177 QRS: 44 QRSD: 90 T: 43 QT: 397 QTc: 385 Interpretive Statements SINUS BRADYCARDIA Compared to ECG 04/03/2023 15:55:51 T-wave abnormality no longer present Electronically Signed On 04-04-2023 16:30:26 CDT by Isabella Forman M.D. [id number]
[2023-04-03] MEDS: allopurinol 100 mg Tablet PO (20:05)
[2023-04-03] MEDS: carvedilol 6.25 mg Tablet PO (20:06)
[2023-04-03 20:38] LABS: Troponin 5 6HR 69.61 ng/L (0-15)
[2023-04-03] MEDS: gabapentin 300 mg Capsule 600 MG PO (20:38)
[2023-04-03] MEDS: tizanidine 4 mg Tablet PO (20:38)
--- NOTE | 2023-04-03 20:40 | USCV_ITS ---
Ronni Torres Age: 78 Gender: M : 1945 Exam Date: 04/04/2023 01:53 Ordering Phys: Andrea Weiss MD Technologist: MARIE Exam Location: [facility] [place] Indication: assess for DVT. 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 No hx DVT. HISTORY: Assess for DVT. No evidence of LE edema or erythema. 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 No hx DVT. PROCEDURES: Venous duplex imaging was performed in bilateral lower extremities. The following venous structures were evaluated: common femoral vein, profunda vein, proximal portion of the greater saphenous vein, superficial femoral vein, and the popliteal vein. In addition, the posterior tibial veins were evaluated. FINDINGS: Normal 2-D Doppler and augmentation and compressibility throughout the lower extremity venous structures. Additional imaging through the proximal calf veins also reveals no thrombus. Limited evaluation of the greater saphenous vein is patent with no thrombus. CONCLUSIONS No DVT bilateral lower extremities. Dr. Marie Champagne DO (Electronically Signed) Final Date: 04 April 2023 07:10 S
[2023-04-03] MEDS: hyDRALAzine 20 mg/mL INJ 1 mL 5 MG IVP (20:52)
--- NOTE | 2023-04-03 21:43 | PM.CONSULT ---
Providers/Reason For Consult Consulting Physician/Specialty*: Dr. 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 He is here with his with c/o easy fatigability,bradycardia and intermittent tachycardia with chest pressure and SOB. BP high on arrival. HR high 40's-50's. Troponin 91--> 83--.70. EKG with sinus rhythm and non specific ST and T wave abnormality. Review of Systems General: Reports: 10 or more systems reviewed and unremarkable except in HPI and below Const: Reports: fatigue; Denies: fever(s), chills, body aches or malaise Eyes: Denies: change in vision or blurry vision ENMT: Denies: dental pain or nasal congestion Card: Reports: chest pain (on exertion); Denies: edema, pre-syncope or orthopnea Resp: Denies: productive cough GI: Denies: abdominal pain, nausea or vomiting : Denies: oliguria or hematuria Skin/Breast: Denies: rash or new lesions Neuro: Denies: headache(s), weakness in extremities, dizziness or confusion Psych: Denies: anxiety or depression Endo: Denies: tired all the time Medications/Allergies Home Medications Medication Instructions Recorded Confirmed Last Taken Type clopidogrel 75 mg tablet 75 mg PO QAM 09/07/20 04/03/23 04/03/23 History gabapentin 600 mg tablet 600 mg PO BEDTIME 09/07/20 04/03/23 04/02/23 History omeprazole 20 mg capsule,delayed 20 mg PO QAM 09/07/20 04/03/23 04/03/23 History release paroxetine HCl 10 mg tablet 10 mg PO QAM 09/07/20 04/03/23 04/03/23 History tizanidine 4 mg tablet 4 mg PO BEDTIME 09/07/20 04/03/23 04/02/23 History aspirin 81 mg tablet,delayed 81 mg PO QAM 09/04/03/23 04/03/23 History release multivitamin 1 tab PO QAM 07/12/21 04/03/23 04/03/23 History carvedilol 12.5 mg tablet 12.5 mg PO BID 12/14/21 04/03/23 04/03/23 History ibuprofen 200 mg tablet 800 mg PO BEDTIME PRN Pain 12/14/21 04/03/23 Unknown History glycopyrrolate 9 mcg-formoterol 2 puff inhalation BID #10.7 grams 01/09/23 04/03/23 04/03/23 Rx 4.8 mcg HFA aerosol inhaler (Bevespi Zane Prepphere) allopurinol 100 mg tablet 100 mg PO QPM 04/03/23 04/03/23 04/02/23 History nitroglycerin 0.4 mg sublingual 0.4 mg sublingual Q5M PRN Chest 04/03/23 04/03/23 Unknown History tablet Pain Allergies Allergy/AdvReac Type Severity Reaction Status Date / Time diphenhydramine Allergy ADR-Shakine Verified 04/03/23 16:08 [From Benadryl] ss propoxyphene [From Darvon] Allergy Unconscious Verified 04/03/23 16:08 adhesive tape AdvReac ALGY-Rash Verified 04/03/23 16:08 Current Medications Generic Name Dose Route Start Last Admin Trade Name Freq PRN Reason Stop Dose Admin Albuterol/Ipratropium 3 ml 04/03/23 20:00 04/03/23 20:30 Ipratropium-Albuterol 3 Ml Neb INHALATION Not Given QID.RESPIRATORY BRITTANI Allopurinol 100 mg 04/03/23 18:35 04/03/23 20:05 Allopurinol 100 Mg Tablet PO 100 mg QPM BRITTANI Administration Carvedilol 6.25 mg 04/03/23 18:45 04/03/23 20:06 Carvedilol 6.25 Mg Tablet PO 6.25 mg BID@0900,2100 BRITTANI Administration Gabapentin 600 mg 04/03/23 21:00 04/03/23 20:38 Gabapentin 300 Mg Capsule PO 600 mg BEDTIME BRITTANI Administration Tizanidine HCl 4 mg 04/03/23 21:00 04/03/23 20:38 Tizanidine 4 Mg Tablet PO 4 mg BEDTIME BRITTANI Administration PFSH Acute PFSH: Medical History Anxiety Aortitis Carotid artery disease Cataract Chronic back pain COPD (chronic obstructive pulmonary disease) Coronary artery disease CVA (cerebral vascular accident) GERD (gastroesophageal reflux disease) History of common carotid artery stent placement HTN (hypertension) Hyperlipidemia Lung nodules Peripheral vascular disease Prostate cancer Restless leg Streptococcus group B infection Surgical History History of ankle surgery History of appendectomy History of prostate surgery Hx of aortic valve repair Hx of ascending aorta replacement Hx of cataract surgery Hx of tonsillectomy S/P PTCA (percutaneous transluminal coronary angioplasty) Family History Brother Heart attack CAD (coronary artery disease) Chronic kidney disease (CKD) Stroke Father CAD (coronary artery disease) Stroke Sister Stroke Mother Stroke Other Heart disease Denies family history of Diabetes Clotting disorder Dementia Suicide Anesthesia complication Bleeding disorder Lung disease Cancer Social History Smoking and tobacco status: current some day smoker cigarettes Packs smoked per day: 0.5 Years cigarettes smoked: 65 [ Other cigarette details: Hx of 4 PPD x 30 Years] Quit status (tobacco): has quit using tobacco Second hand smoke exposure: Yes Smoking risk assessment/counseling performed?: Yes Alcohol intake: current Alcohol intake frequency: holidays/special occasions only Alcohol type: beer Counseling given: No Substance/Drug Use: current Substance/Drug use frequency: daily Other substance/drug use details: Chewables Counseling given: Yes Lives independently: Yes Household members: spouse Marital status: Current occupational status: retired Do you think of yourself as: Straight/Heterosexual Current gender identity: Male Vitals/I&O/Wt Last Vital Signs Temp 98.2 F 04/03/23 12:43 Pulse 57 L 04/03/23 20:30 Resp 19 H 04/03/23 20:30 BP 200/79 04/03/23 20:30 Pulse Ox 95 04/03/23 20:30 O2 Del Method Room Air 04/03/23 20:30 Weight last 48 hrs Weight 150 lb Physical Exam Const: COMMON NORMALS: no acute distress, patient oriented x3 and alert GENERAL APPEARANCE: cooperative, comfortable, well kempt and well hydrated HENMT: COMMON NORMALS: hearing grossly normal bilaterally and external ears normal FACE & SINUS: normal facial exam NOSE: Normal septum present EXTERNAL EAR: Yes external ears normal Eye: COMMON NORMALS: EOMs intact bilaterally and no scleral icterus GENERAL EYE: appearance normal, both eyes and all related structures ALIGNMENT: Yes alignment normal Neck/C-Spine: COMMON NORMALS: supple and no JVD GENERAL: Yes normal visual inspection CAROTIDS: Yes normal carotid upstroke Lymph: LYMPHATIC: no lymphadenopathy noted Chest: COMMONS NORMALS: normal inspection of the chest and normal palpation of entire chest wall CHEST: Yes Symmetrical chest wall rise and No tenderness Resp: COMMON NORMALS: clear to auscultation bilaterally EFFORT & INSPECTION: Yes able to speak in complete sentences and No respiratory distress AUSCULTATION: clear to auscultation bilaterally, no crackles, no rales, no rhonchi and no wheezes Cardio: COMMON NORMALS: no JVD, S1 normal heart sound present, S2 normal heart sound present and Peripheral pulses 2+ throughout PALPATION: normal PMI RATE: bradycardic RHYTHM: abnormal rhythm with ectopic beats HEART SOUNDS: S1 normal heart sound present, S2 normal heart sound present, no click, no gallops and no murmurs BRUITS: no carotid bruits PERIPHERAL PULSES: Peripheral pulses 2+ throughout, radial pulses present, posterior tibial pulses present and dorsalis pedis present GI: COMMON NORMALS: Soft to palpation AUSCULTATION: Yes normoactive bowel sounds PALPATION: Yes Soft to palpation, No Tenderness to palpation present (GI), No Guarding due to palpation present (GI) and No Rigid due to palpation OTHER: mid line scar of previous sx Extremity: GENERAL: No cyanosis, No edema and No pallor Neuro: COMMON NORMALS: patient oriented x3 and moves all extremities SENSORIUM/ORIENTATION: Yes alert Psych: COMMON NORMALS: Normal thought process present and speech normal APPEARANCE: Yes well kempt SPEECH: Yes normal speech MOOD & AFFECT: Yes euthymic mood THOUGHT PROCESS: Normal thought process present THOUGHT CONTENT: Yes Normal thought content present Data 04/03/23 14:04 04/04/23 03:17 A&P Assessment and plan (1) Exertional angina: exertional angina and SOB with tiredness associated with bradycardia and intermittent tachycardia with HR in 130's. -this is similar to previous situation when he had stents. He has had previous normal stress tests and then needing stents. He is reluctant to undergo stress test -I will plan to get echo, his previous records from Dr. Hardin ([place], previously at [facility]) and f/u on labs -continue DAPT, statin - plan for LH once renal function improves. (2) Bradycardia: decrease coreg dose and monitor on telemetry frequent PVC's noted. (3) Coronary artery disease: Last LHC at [facility] (04/2015): High-grade lesions at the ostium and at the mid segments of the dominant left circumflex artery. Moderate distal left main disease. Nondominant right coronary artery. Normal LV ejection fraction of 60% (4) Smoker: active smoker not motivated to quit (5) Peripheral vascular disease: (6) COPD (chronic obstructive pulmonary disease): Qualifiers: COPD type: emphysema Emphysema type: centrilobular Qualified Code(s): J43.2 - Centrilobular emphysema Plan HTN: uncontrolled; will need to other antihypertensives based on response. AAA s/p repair Carotid artrey disease s/p b/l stents h/o CVA JUDY Consult Attestations Time Spent in Patient Care: Greater than 35 minutes Coding Level of Care Code 77871 Diagnoses Exertional angina I20.8 Bradycardia R00.1 Coronary artery disease I25.10 Smoker F17.200 Peripheral vascular disease I73.9 COPD (chronic obstructive pulmonary disease) J43.2 COPD type: emphysema Emphysema type: centrilobular
[2023-04-03] MEDS: enoxaparin 40 mg/0.4 mL Syringe SUBCUT (23:25)
[2023-04-04] VITALS (59 sets, daily range): BP systolic 104–180; BP diastolic 51–75; PULSE 54–70; RESP 15–21; TEMP 37; O2SAT 89–96
[2023-04-04 04:16] LABS: Blood Urea Nitrogen 26 mg/dL (8-23); Calcium 9.3 mg/dL (8.5-10.5); Carbon Dioxide 23 mmol/L (22-29); Chloride 105 mmol/L (98-107); Glucose 144 mg/dL (65-115); Osmolality Calculated 301 mOsm/kg (285-295); Sodium 142 mmol/L (136-145)
[2023-04-04] MEDS: pantoprazole DR 40 mg Tablet PO (05:11)
[2023-04-04] MEDS: aspirin 81 mg EC Tablet PO (05:11)
[2023-04-04] MEDS: clopidogrel 75 mg Tablet PO (05:11)
[2023-04-04] MEDS: PARoxetine 20 mg Tablet 10 MG PO (05:11)
--- NOTE | 2023-04-04 09:29 | PC.CHAP ---
Pastoral Care Encounter/Spiritual Assessment Type of Contact [] Declined security engineer visit [] Patient/Family/Request visit [] Outpatient visit [] Follow-up visit [] Physician referral [] Code/Alert [x] Routine visit [] Staff referral [] Actively dying [] Patient sleeping [] Family support [] [] Out of room [] Palliative care [] [] Receiving care in room [] Pre-surgical visit [] Trauma [] Long length of stay [] ICU visit [] Other: Relational/Emotional Strength [] Patient feels connected with others/family/visitors/staff [] Distress [] Loneliness/isolation [] Abandonment Spirituality of Patient [] Person of Tere [] Attends Methodist of their Tere [] Believes in Prayer [] Reads Bible or Congregational materials [x] There are Spiritual issues to be addressed Distribution Agent Interventions [] Prayer [] Active listening [x] Non-anxious presence [] Spiritual/emotional support [] Crisis/trauma care [] Spiritual counseling [] Bereavement support [] Provided bereavement packet [] Provided Bible/devotional materials [] Provided toy/stuffed animal, coloring book to patient or family member [] Provided Communion [] Anointing/Hope [] Salvation [] Completed spiritual assessment [] Other: Impact on Illness or Injury [] Angry [] Fearful [] Anxious [] Often cries [] Exhaustion [] Unable to work [] Unable to attend mormon [] Unable to walk/stand [] Unable to read [] Unable to drive [] Unable to eat/drink [] Unable to sleep [] Unable to be with family [] Patient intubated [] Other: Summary Time spent with patient 5 min
[2023-04-04] MEDS: carvedilol 3.125 mg Tablet PO ×2 (10:44→17:31)
[2023-04-04] MEDS: amlodipine 5 mg Tablet PO (13:38)
[2023-04-04 17:07] LABS: Adenovirus Not Detected (NOT DETECT); Chlamydia Pneumoniae Not Detected (NOT DETECT); Coronavirus 229E,HKU1,NL63,OC4 Not Detected (NOT DETECT); Human Metapneumovirus Not Detected (NOT DETECT); Human Rhinovirus/Enterovirus Not Detected (NOT DETECT); Influenza A Not Detected (NOT DETECT); Influenza A H1 Not Detected (NOT DETECT); Influenza A H1-2009 Not Detected (NOT DETECT); Influenza A H3 Not Detected (NOT DETECT); Influenza B Not Detected (NOT DETECT); Mycoplasma Pneumoniae Not Detected (NOT DETECT); Parainfluenza Virus Type 1 Not Detected (NOT DETECT); Parainfluenza Virus Type 2 Not Detected (NOT DETECT); Parainfluenza Virus Type 3 Not Detected (NOT DETECT); Parainfluenza Virus Type 4 Not Detected (NOT DETECT); Respiratory Syncytial Virus A Not Detected (NOT DETECT); Respiratory Syncytial Virus B Not Detected (NOT DETECT); SARS-COV-2 Not Detected (NOT DETECT)
--- NOTE | 2023-04-04 17:48 | P.PN_ITS ---
Subjective Subjective: Last 24 hr: continues to run low in 50's and dose of coreg was decreased, intermittent single PVC's noted. BP running high c/o feeling fatigue, no CP, SOB or clammy feeling Medications: Reviewed: Yes Vitals/I&O/Wt Last Vital Signs Temp 98.2 F 04/03/23 12:43 Pulse 63 04/04/23 15:42 Resp 17 04/04/23 15:42 BP 180/66 04/04/23 15:42 Pulse Ox 95 04/04/23 15:42 O2 Del Method Room Air 04/04/23 15:42 04/04/23 04/04/23 04/04/23 06:59 14:59 22:59 Intake Total 120 / 120 Output Total 600 / 800 Balance -600 / -800 120 / 120 Weight last 48 hrs Weight 150 lb Physical Exam Const: COMMON NORMALS: no acute distress, patient oriented x3 and alert GENERAL APPEARANCE: cooperative, comfortable, well kempt and well hydrated HENMT: COMMON NORMALS: hearing grossly normal bilaterally and external ears normal FACE & SINUS: normal facial exam EXTERNAL EAR: Yes external ears normal Eye: COMMON NORMALS: EOMs intact bilaterally and no scleral icterus GENERAL EYE: appearance normal, both eyes and all related structures ALIGNMENT: Yes alignment normal Neck/C-Spine: COMMON NORMALS: supple and no JVD GENERAL: Yes normal visual inspection CAROTIDS: Yes normal carotid upstroke Lymph: LYMPHATIC: no lymphadenopathy noted Chest: COMMONS NORMALS: normal inspection of the chest and normal palpation of entire chest wall CHEST: Yes Symmetrical chest wall rise and No tenderness Resp: COMMON NORMALS: clear to auscultation bilaterally EFFORT & INSPECTION: Yes able to speak in complete sentences and No respiratory distress AUSCULTATION: clear to auscultation bilaterally, no crackles, no rales, no rhonchi and no wheezes Cardio: COMMON NORMALS: no JVD, S1 normal heart sound present, S2 normal heart sound present and Peripheral pulses 2+ throughout PALPATION: normal PMI RATE: bradycardic RHYTHM: abnormal rhythm with ectopic beats HEART SOUNDS: S1 normal heart sound present, S2 normal heart sound present, no click, no gallops and no murmurs BRUITS: no carotid bruits PERIPHERAL PULSES: Peripheral pulses 2+ throughout, radial pulses present, posterior tibial pulses present and dorsalis pedis present GI: COMMON NORMALS: Soft to palpation AUSCULTATION: Yes normoactive bowel sounds PALPATION: Yes Soft to palpation, No Tenderness to palpation present (GI), No Guarding due to palpation present (GI) and No Rigid due to palpation OTHER: mid line scar of previous sx Extremity: GENERAL: No cyanosis, No edema and No pallor Neuro: COMMON NORMALS: patient oriented x3 and moves all extremities SENSORIUM/ORIENTATION: Yes alert Psych: COMMON NORMALS: Normal thought process present and speech normal APPEARANCE: Yes well kempt SPEECH: Yes normal speech MOOD & AFFECT: Yes euthymic mood THOUGHT PROCESS: Normal thought process present THOUGHT CONTENT: Yes Normal thought content present Data 04/03/23 14:04 04/04/23 03:17 A&P Assessment and plan (1) Exertional angina: exertional angina and SOB with tiredness associated with bradycardia and intermittent tachycardia with HR in 130's. -this is similar to previous situation when he had stents. -progressively worsening over last month -concern for unstable angina He has had previous normal stress tests and then needing stents. He is reluctant to undergo stress test -I will plan to get echo, his previous records from Dr. Hardin ([place], previously at [facility]) and f/u on labs in am -continue DAPT, statin - plan for LH once renal function improves. (2) Bradycardia: decrease coreg dose and monitor on telemetry frequent PVC's noted. (3) Coronary artery disease: Last LHC at [facility] (04/2015): High-grade lesions at the ostium and at the mid segments of the dominant left circumflex artery. Moderate distal left main disease. Nondominant right coronary artery. Normal LV ejection fraction of 60% (4) Smoker: active smoker not motivated to quit (5) Peripheral vascular disease: (6) COPD (chronic obstructive pulmonary disease): Qualifiers: COPD type: emphysema Emphysema type: centrilobular Qualified Code(s): J43.2 - Centrilobular emphysema Plan HTN: uncontrolled; add amlodipine 5 mg daily. AAA s/p repair: Last CTA abdomen/pelvis with Infrarenal RIGHT aortic stent with additional RIGHT external iliac stent. Prior RIGHT occluded iliac graft. Normal caliber abdominal aorta. No evidence of enlarging aortic aneurysm. Removal of previously described aortic endograft and LEFT iliac component. Excluded aneurysm sac measures 1.5 x 2.5 cm AP by transverse in maximum dimension today. Carotid artrey disease s/p b/l stents h/o CVA JUDY Attestations Medical Necessity Statement*: needs hospital stay for bradycardia and exertional SOB and angina Coding Level of Care Code 69826 Diagnoses Exertional angina I20.8 Bradycardia R00.1 Coronary artery disease I25.10 Smoker F17.200 Peripheral vascular disease I73.9 COPD (chronic obstructive pulmonary disease) J43.2 COPD type: emphysema Emphysema type: centrilobular
[2023-04-04] MEDS: tizanidine 4 mg Tablet PO (21:15)
[2023-04-04] MEDS: enoxaparin 40 mg/0.4 mL Syringe SUBCUT (21:15)
[2023-04-04] MEDS: allopurinol 100 mg Tablet PO (21:15)
[2023-04-04] MEDS: gabapentin 300 mg Capsule 600 MG PO (21:15)
--- NOTE | 2023-04-04 21:28 | P.PN_ITS ---
Subjective Subjective: He is doing all right so far. No chest pain or pressure. He has discussed with cardiology, noted some worsening of renal function which will be repeated again in the morning with tentative plans for assessment by coronary angiography tomorrow. Discussed with him also regarding abnormal D-dimer, discussed options for further assessment to exclude PE. He also states that about several months ago he became discouraged with his medications and just abruptly stopped taking all of them for about a month. He states that he did well until his became concerned and highly encouraged him to resume them which he did, at which point he states feels the current issue started. Vitals/I&O/Wt Last Vital Signs Temp 98.6 F 04/04/23 19:51 Pulse 61 04/04/23 19:51 Resp 19 H 04/04/23 19:51 BP 172/75 04/04/23 19:51 Pulse Ox 94 04/04/23 19:51 O2 Del Method Room Air 04/04/23 15:42 04/04/23 04/04/23 04/04/23 06:59 14:59 22:59 Intake Total 120 / 120 360 / 480 Output Total 600 / 800 Balance -600 / -800 120 / 120 360 / 480 Weight last 48 hrs Weight 68.039 kg Physical Exam Narrative: Accompanied by his . Const: COMMON NORMALS: patient oriented x3 and alert GENERAL APPEARANCE: cooperative ORIENTATION/CONSCIOUSNESS: Yes awake HENMT: COMMON NORMALS: oropharynx normal Neck/C-Spine: COMMON NORMALS: no JVD Resp: COMMON NORMALS: normal respiratory effort and clear to auscultation bilaterally AUSCULTATION: clear to auscultation bilaterally Cardio: COMMON NORMALS: no JVD, regular rhythm, S1 normal heart sound present, S2 normal heart sound present and No murmurs present (Cardio) RHYTHM: regular rhythm HEART SOUNDS: S1 normal heart sound present and S2 normal heart sound present GI: COMMON NORMALS: Normal to inspection, nondistended, normoactive bowel sounds present, Soft to palpation and non-tender PALPATION: Yes Soft to palpation Extremity: COMMON NORMALS: no joint enlargement and no pedal edema Neuro: COMMON NORMALS: patient oriented x3 and moves all extremities SENSORIUM/ORIENTATION: Yes alert Skin: COMMON NORMALS: no rashes or lesions noted GENERAL SKIN EXAM: no rashes or lesions noted Data 04/03/23 14:04 04/04/23 03:17 A&P Assessment and plan (1) Exertional angina: Cardiology assessment appreciated, documentation reviewed. Possible unstable angina. Pending reassessment renal function, possibly a left heart cath tomorrow. Chemistry panel is requested. Additionally abnormal D-dimer. Requested VQ scan. (2) Bradycardia: This morning still bradycardia in the 50s, although better than yesterday. As such carvedilol reduced further to 3.125 mg. Monitor on telemetry. (3) Smoking addiction: Continue to encourage cessation. Nicotine replacement as needed. (4) Easy fatigability: As above. (5) Acute kidney injury: Creatinine noted to up to 1.6. Discussed with him to discontinue ibuprofen, avoid NSAIDs. Reassess renal function. Plan Exertional angina: As above, reports chest pain/pressure with exertion. Concerned that he may be progressing to unstable angina with possible progression of underlying CAD with multiple prior stents, at risk of life- threatening FL. Additionally chest pain pressure if gets an episode of tachycardia. Multivessel vasculopathy: Including CAD, PAD, history of coronary and more recently carotid stents. Continue LYSSA P. Does not appear to be on statin. Will need to confirm with him why it appears he is no longer taking it. Would avoid ibuprofen. Requested records from his automotive design layout drafter office in [place]. HTN: Amlodipine 5 mg has been added by cardiology. Monitor blood pressures. Decreased Coreg dose. Would avoid ibuprofen. Discussed with him and his spouse. Chronic back pain COPD: Not in exacerbation History of CVA: With recent carotid artery stents, continue DAPT. Not on statin ? GERD HLD Lung nodules Prostate cancer RLS Discussed with case management he has a PCP and automotive design layout drafter in [place]. Attestations Medical Necessity Statement*: Continue admission for assessment and management of possible unstable angina, concern for progression of coronary disease, symptomatic bradycardia, controlled hypertension and gentleman with JUDY. Diagnoses Exertional angina I20.8 Bradycardia R00.1 Smoking addiction F17.200 Easy fatigability R53.83 Acute kidney injury N17.9
[2023-04-05] VITALS (77 sets, daily range): BP systolic 111–184; BP diastolic 51–104; PULSE 48–92; RESP 13–29; TEMP 36.5–36.9; O2SAT 88–97
[2023-04-05 04:30] LABS: Anion Gap 14.5 (5-19); Blood Urea Nitrogen 29 mg/dL (8-23); Calcium 8.9 mg/dL (8.5-10.5); Carbon Dioxide 25 mmol/L (22-29); Chloride 104 mmol/L (98-107); Glucose 103 mg/dL (65-115); Osmolality Calculated 294 mOsm/kg (285-295); Potassium 4.5 mmol/L (3.5-5.1); Sodium 139 mmol/L (136-145)
[2023-04-05] MEDS: aspirin 81 mg EC Tablet PO (05:32)
[2023-04-05] MEDS: pantoprazole DR 40 mg Tablet PO (05:32)
[2023-04-05] MEDS: clopidogrel 75 mg Tablet PO (05:32)
[2023-04-05] MEDS: PARoxetine 20 mg Tablet 10 MG PO (05:32)
--- NOTE | 2023-04-05 05:53 | XACV_ITS ---
Exam Room: 2 Ht: 168 cm Wt: 68 kg BSA: 1.79 m2 Gender: Male : 1945 Any Known Allergies: Other Exam Priority: Routine Procedure(s): Procedure Description: Diagnostic procedure Procedure Description: PCI procedure Procedure Description: Left Heart Catheterization Procedure Description: Coronary IVUS Procedure Description: PTCA Procedure Description: Miscellaneous Procedure Description: ACT Procedure Description: Coronary Angiography Diagnostic Cath Status: Urgent Diagnostic Findings * Left Anterior Descending has mild to moderate luminal irregularities. * Right Coronary Artery is a small sized vessel and is patent. * Mid Circumflex: obstructive 70% stenosis, MANAV: 3 flow. It is diffusely diseased vessel. * First Obtuse Marginal Branch Segment: critical 95% in-stent restenosis, MANAV: 3 flow. * Left Main: minimal 30% stenosis, MANAV: 3 flow. * Coronary angiography shows left dominance. PCI Status: Urgent PCI Indication: Other Interventional Findings * Procedure Detail: We engaged left main artery with XB 3.5 guide catheter. IV heparin was administered to maintain ACT above 250 S. 0.014 run-through guidewire was used to cross the stenosis in left circumflex artery and OM1 branch and was put in distal vessel. IVUS was performed to assess left main artery. Minimal luminal area of 10 mm2 was obtained. As this was not significant, we decided to proceed with balloon angioplasty of critical in-stent restenosis of OM stent and mid to distal left circumflex artery stenosis. We used a 2.25 x 15 mm semicompliant balloon and performed balloon angioplasty of the critical OM branch stent. Given small caliber vessel in the mid to distal left circumflex artery stent, we decided not to stent it and performed balloon angioplasty. This improved flow significantly and no significant residual stenosis was seen. Guidewire and guide catheter were removed. Patient left the Inspector Air Carrier in stable condition. * Distal Circumflex: 70% stenosis treated with a AB TREK 2.25X15 RX BALLOON. 0% residual stenosis, MANAV: 3 flow. * First Obtuse Marginal Branch Segment: 95% stenosis treated with a AB TREK 2.25X15 RX BALLOON. 0% residual stenosis, MANAV: 3 flow. Conclusions 1. Severe mid left circumflex artery stenosis treated with balloon angioplasty. Critical in-stent restenosis of OM branch stent s/p successful revascularization with balloon angioplasty. 2. Mild to moderate left main artery stenosis. Confirmed with 3. IVUS 4. . MLA of 10 mm2. 5. Distal Circumflex was treated with a Balloon. 6. First Obtuse Marginal Branch Segment was treated with a Balloon. Recommendations * Aggressive risk factor modification. * Dual antiplatelet therapy with aspirin and Plavix.. * High intensity statin therapy. * Outpatient cardiology follow-up in 2 weeks. Interventional RX Recommendation: PCI w/o planned CABG Diagnostic RX Recommendation: PCI w/o planned CABG Anticoagulation: Heparin Pressures Phase:Rest AO : 94 / 46 ( 67 ) @ 10:09:00 AM 81 / 45 ( 62 ) @ 10:10:00 AM 96 / 52 ( 72 ) @ 10:10:00 AM 91 / 52 ( 69 ) @ 10:11:00 AM 148 / 52 ( 86 ) @ 10:18:00 AM 149 / 51 ( 85 ) @ 10:18:00 AM 144 / 53 ( 82 ) @ 10:22:00 AM 101 / 44 ( 66 ) @ 10:23:00 AM 134 / 58 ( 88 ) @ 10:35:00 AM 129 / 51 ( 82 ) @ 10:36:00 AM LV : 140 / -7 / 9 @ 10:17:00 AM 146 / -3 / 11 @ 10:18:00 AM Valves Phase:DefaultPhase AV : 0.0 @ 9:53:31 AM 0.0 @ 9:53:31 AM AV Mean Gradient: 0.0 @ 9:53:31 AM 0.0 @ 9:53:31 AM Clinical Evaluation EBL: 5mL-10mL Procedural Details Procedure Consent Obtained. Admit Source: In Patient. Pre-Procedure Time Out. Identified patient by full name and date of as verbalized by the patient/guarantor. Does the consent match the physician's order: Yes. Accurate & Complete Informed Consent: Yes. Inpatient/Outpatient History & Physical on Chart: Yes. Visualize and Verify Site with Patient/Guarantor: N/A. If H&P is completed, is and addenduem needed: No; If yes, is the addendum complete: N/A. Relevant Radiology Images available: Yes. The risks, benefits, and alternatives of sedation and/or procedure were discussed by physician. The patient agrees to continue. Procedure started. [facility] Clinical Fraility Score: 5: Mildly Frail. Inspector Air Carrier Indications: New Onset Angina. Chest Pain Symptom Assessment: Typical Angina Symptoms. Correct patient, site and procedure confirmed by cath team. PERRLA. Strong, equal hand boat joiner helper bilaterally. Lungs clear x 5 lobes. IV Site on Arrival: 20 gauge in the right anticubital. IV Fluids: 0.9% NaCl at KVO. 200 mL infused prior to pharmaceutical laboratory technician. Pre Procedural Pulses: right dorsalis pedis was 3+. Pre Procedural Pulses: left dorsalis pedis was 1+. Pre Procedural Pulses: right dorsalis pedis was 1+. Pre Procedural Pulses: left dorsalis pedis was 1+. Oxygen started at 2liters/min via nasal canula. right groin was prepped with chloroprep then draped in the usual sterile fashion. Physician notified. Baseline sample Acquired. HR: 48 BPM. Physician arrived. Physician scrubbed in. Immediate Pre-Procedure Time Out. Correct Patient: Yes; Correct Procedure: Yes; Correct Site: Yes; Correct Patient Position: Yes; Correct Supplies: Yes; Dried Flammable Prep: Yes; Blood Products Available: N/A;. Lidocaine 1% infiltrated to the right groin. Unable to obtain access. Ultrasound used to assist with access. Lidocaine 1% infiltrated to the right groin. Arterial access obtained with micropuncture set. Lidocaine 1% infiltrated to the right groin. standard wire inserted through micro dilator. Micro dilator out over the standard wire. A 5 chilean JL4 catheter in over wire. Multiple views taken of left coronary artery. Catheter out. A 5 chilean JR4 catheter in over wire. Multiple views taken of right coronary artery. EDP Sample taken: LV 140/-8,9; HR: 63 BPM; SpO2: 97%. Pullback taken: LV 146/-4,11; AO 148/52(86); Mean: 0mmHg, Peak to Peak: 0mmHg, SEP: 6sec/min; HR: 54 BPM; SpO2: 96%. Catheter out. 6 chilean XB 3.5 guide catheter was inserted over the standard wire. Runthrough guidewire was advanced through the guide catheter to lesion in the OM. IVUS catheter in over the runthrough. IVUS run of LM completed. 2.25 x 15 Balloon inserted to lesion in the OM. Inflation number : 1 A AB TREK 2.25X15 RX BALLOON was prepped and advanced across the 1st Ob Yolanda , then inflated to 8 HARLAN for 0:07 seconds. Inflation number: 2 The AB TREK 2.25X15 RX BALLOON was reinflated across the 1st Ob Yolanda, to 10 HARLAN for 0:15 seconds. Inflation number: 3 The AB TREK 2.25X15 RX BALLOON was reinflated across the 1st Ob Yolanda, to 10 HARLAN for 0:17 seconds. Inflation number: 4 The AB TREK 2.25X15 RX BALLOON was reinflated across the 1st Ob Yolanda, to 8 HARLAN for 0:09 seconds. Inflation number: 5 The AB TREK 2.25X15 RX BALLOON was reinflated across the 1st Ob Yolanda, to 8 HARLAN for 0:11 seconds. Inflation number: 1 The AB TREK 2.25X15 RX BALLOON was reinflated across the Dist CX, to 6 HARLAN for 0:13 seconds. Balloon out. Results checked. Wire out. ACT drawn. Results 386 seconds. Therapeutic limits - pre-heparin administration 90-150 seconds and monitoring heparin during a vascular procedure >250 seconds. Guide catheter out. Post Procedure: Pulses reassessed and unchanged. PERRLA. Strong, equal hand boat joiner helper bilaterally. No VTE prophylaxis required. A Suture was successful obtaining hemostatsis at the Right Femoral artery insertion site. 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 Post stent revascularization of OM1 and IVUS of LM. Complications: none. Estimated blood loss: 5mL-10mL. Responsiveness - Normal response to verbal stimuli; alert and oriented, PERRLA. Airway - Unaffected, no intervention required; spontaneous ventilation. Circulation: W/N/L, pulses unchanged. Nausea/Vomiting: No. Medication's Wasted: Heparin = 3000 units. Medication's Wasted: Other = Versed 1 mg. Total IV fluids: 69 mL. Procedure completed. Patient transferred by bed to CPRU. Vital chart was stopped. Access Site Site: Right Femoral artery Sheath Size: 6 Fr Hemostasis Method: Suture Hemostasis Success: Successful Procedure Medications Start: 8:53 AM Stop: 8:53 AM Medication: Versed Amount: 1 mg Route: I.V. Start: 8:53 AM Stop: 8:53 AM Medication: Fentanyl Amount: 50 mcg Route: I.V. Start: 8:55 AM Stop: 8:55 AM Medication: Versed 1 mg and Fentanyl 25 mcg Route: I.V. Start: 8:59 AM Stop: 8:59 AM Medication: Fentanyl Amount: 25 mcg Route: I.V. Start: 9:21 AM Stop: 9:21 AM Medication: Versed Amount: 1 mg Route: I.V. Start: 9:22 AM Stop: 9:22 AM Medication: Heparin Amount: 6000 units Route: I.V. Start: 9:40 AM Stop: 9:40 AM Medication: Plavix Amount: 300 mg Route: P.O. I, the attending physician, have reviewed and verified all procedure medications. Yes, all medications given per verbal order History/Risk Factors Hypertension: No Dyslipidemia: No Peripheral Arterial Disease (PAD): No Myocardial Infarction (NH): Yes Obesity: No Renal Disease: No Tobacco Use: Current/Recent(w/in 1 year) Prior Interventions PCI: Yes CABG: No Valve Surgery: No Date of PCI: 04/29/2015 Report Signatures Finalized by Matt Verma MD on 04/05/2023 05:44 PM
[2023-04-05] MEDS: sodium chloride 0.9% 1,000 ML 50 ML IV (06:13)
[2023-04-05] MEDS: aspirin 325 mg Tablet PO (06:13)
[2023-04-05] MEDS: amlodipine 5 mg Tablet PO (08:04)
--- NOTE | 2023-04-05 08:51 | W.PM.OPSUD ---
Surgery/Procedure H&P Update DATE OF PROCEDURE: April 05, 2023 DATE H&P PERFORMED: 04/03/23 H&P UPDATE INFORMATION: I have reviewed H&P completed within last 30 days, I have examined patient prior to procedure and No changes to prior documentation PREOP DIAGNOSIS: Unstable angina PRIMARY INDICATION FOR PROCEDURE: Unstable angina PLANNED PROCEDURE: Left heart cath with possible percutaneous coronary intervention PATIENT REASSESSED PRIOR TO SEDATION, WITH NO CHANGE NOTED: Yes PHYSICAL EXAM: alert, oriented x 3, clear to auscultation bilaterally and regular rate & rhythm AIRWAY EVAL/ANESTHESIA PLAN: normal airway, ASA IV, Local Anesthesia, Risks, benefits & alternatives of sedation and/or procedure discussed and Patient agrees to continue as planned ADDITIONAL INFORMATION: Moderate sedation
--- NOTE | 2023-04-05 11:36 | NM_ITS ---
WS: [id number] NUCLEAR MEDICINE VENTILATION/PERFUSION LUNG SCAN HISTORY: assess for PE COMPARISON: Chest radiograph 04/03/2023 TECHNIQUE: Ventilation: 32.1 mCi of Technetium 99 DTPA aerosol inhaled. Perfusion: 5.2 mCi of technetium 99m MAA IV. Ventilatory portion of the exam is very mottled heterogeneous particularly in the upper lung morales. These are nearly matched. Much better perfusion as compared to the ventilation. No unmatched wedge-sh aped defects. NM/NM pul vent and perfus* [id number] IMPRESSION: Low probability.
[2023-04-05] MEDS: ALPRAZolam 0.5 mg Tablet 0.25 MG PO (14:02)
[2023-04-05 14:42] LABS: Partial Thromboplastin Time 40.3 SECONDS (23.9-36.7)
[2023-04-05] MEDS: fentaNYL 50 mcg/mL INJ 2mL IVP (16:05)
--- NOTE | 2023-04-05 18:20 | P.PN_ITS ---
Subjective Subjective: Patient had coronary angiogram performed today that showed moderate left main artery stenosis but on IVUS it was not severe. There was is critical in-stent restenosis of OM branch stent. He underwent successful revascularization with balloon angioplasty. Patient also had balloon angioplasty of mid to distal left circumflex artery. No new stent was put in. Vitals/I&O/Wt Last Vital Signs Temp 98.4 F 04/05/23 11:27 Pulse 52 L 04/05/23 15:35 Resp 19 H 04/05/23 15:35 BP 151/66 04/05/23 15:35 Pulse Ox 91 04/05/23 15:35 O2 Del Method Room Air 04/05/23 15:35 04/05/23 04/05/23 04/05/23 06:59 14:59 22:59 Intake Total 240 / 240 Output Total 400 / 400 475 / 475 Balance -400 / 320 -235 / -235 Physical Exam Narrative: GENERAL: Patient is alert, awake and oriented x3. [] NECK: No jugular vein distension. [] HEENT: No cyanosis. No icterus. No pallor. [] HEART: Regular S1 and S2. No murmur, rub or gallop. [] LUNGS: Clear to auscultate bilaterally. [] CENTRAL NERVOUS SYSTEM: Grossly nonfocal. [] EXTREMITIES: Lower extremities with no edema Data 04/03/23 14:04 04/05/23 03:20 A&P Assessment and plan (1) Exertional angina: (2) Bradycardia: (3) Coronary artery disease: (4) Smoker: (5) Peripheral vascular disease: (6) COPD (chronic obstructive pulmonary disease): Qualifiers: COPD type: emphysema Emphysema type: centrilobular Qualified Code(s): J43.2 - Centrilobular emphysema Plan Patient underwent coronary angiogram today that showed critical in-stent restenosis of OM 1 stent. He underwent successful revascularization with balloon angioplasty. Balloon angioplasty of smaller caliber mid to distal left circumflex artery was also performed. No new stents were placed. Dual antiplatelet therapy with aspirin and Plavix. We will hold Coreg today as heart rate is still low. Continue IV fluids for today given CKD. Monitor renal function. Thank you for involving us with care of this patient. We will continue to emil enamorado. Please call with questions. Attestations 2 Medical Necessity Statement*: Care expected to cross 2 midnights. Coding Level of Care Code Acute Code for Chg Fwd Diagnoses Exertional angina I20.8 Bradycardia R00.1 Coronary artery disease I25.10 Smoker F17.200 Peripheral vascular disease I73.9 COPD (chronic obstructive pulmonary disease) J43.2 COPD type: emphysema Emphysema type: centrilobular
--- NOTE | 2023-04-05 18:25 | PC.NURSE ---
Right femoral sheath removed at 16:31, no signs of bleeding or hematoma formation. Manual pressure held for 20 minutes, hemostasis achieved immediately. Vitals WNL. A&Ox4. Patient educated on post sheath removal, and the need to lay still and keep the extremity straight for 6 hours, patient verbalized understanding.
[2023-04-05] MEDS: tizanidine 4 mg Tablet PO (20:02)
[2023-04-05] MEDS: gabapentin 300 mg Capsule 600 MG PO (20:02)
[2023-04-05] MEDS: allopurinol 100 mg Tablet PO (20:02)
--- NOTE | 2023-04-05 22:07 | P.PN_ITS ---
Subjective Subjective: Underwent coronary angiography with intervention, doing well subsequently. No chest pain. No issues in the right groin. Vitals/I&O/Wt Last Vital Signs Temp 98.5 F 04/05/23 19:30 Pulse 63 04/05/23 21:09 Resp 18 04/05/23 21:09 BP 157/66 04/05/23 20:00 Pulse Ox 93 04/05/23 21:09 O2 Del Method Room Air 04/05/23 21:09 04/05/23 04/05/23 04/05/23 06:59 14:59 22:59 Intake Total 240 / 240 Output Total 400 / 400 475 / 475 Balance -400 / 320 -235 / -235 Physical Exam Narrative: Accompanied by his . Const: COMMON NORMALS: patient oriented x3 and alert GENERAL APPEARANCE: cooperative ORIENTATION/CONSCIOUSNESS: Yes awake HENMT: COMMON NORMALS: oropharynx normal Neck/C-Spine: COMMON NORMALS: no JVD Resp: COMMON NORMALS: normal respiratory effort and clear to auscultation bilaterally AUSCULTATION: clear to auscultation bilaterally Cardio: COMMON NORMALS: no JVD, regular rhythm, S1 normal heart sound present, S2 normal heart sound present and No murmurs present (Cardio) RHYTHM: regular rhythm HEART SOUNDS: S1 normal heart sound present and S2 normal heart sound present GI: COMMON NORMALS: Normal to inspection, nondistended, normoactive bowel sounds present, Soft to palpation and non-tender PALPATION: Yes Soft to palpation Extremity: COMMON NORMALS: no joint enlargement and no pedal edema OTHER: Sheath in right groin, no pulsatile mass, bruising or bleeding. Neuro: COMMON NORMALS: patient oriented x3 and moves all extremities SENSORIUM/ORIENTATION: Yes alert Skin: COMMON NORMALS: no rashes or lesions noted GENERAL SKIN EXAM: no rashes or lesions noted Data 04/03/23 14:04 04/05/23 03:20 A&P Assessment and plan (1) Exertional angina: Coronary angiogram via right groin access with intervention/angioplasty of prior stent due to 90% restenosis per preliminary report. Likely cause of unstable angina. Continue post angiography care. Reassess chemistry for renal function. Follow- up CBC for anemia. Monitor for any life-threatening arrhythmia. Cardiology documentation appreciated. Discussed with him regarding statin, he thought he maybe was feeling unwell from a statin, although this may have been secondary to the other findings during this hospitalization, he had stopped it by himself, was previously taking 20 mg atorvastatin, he is willing to retry to restart it. Discussed with him alternatively consideration of different statin, possibly simvastatin, he would like to restart atorvastatin first. Additionally abnormal D-dimer. Discussed with him and spouse, low probability for PE on VQ scan. Anticipated return home in the morning. Discussed with case management. (2) Bradycardia: Still bradycardic this morning down to low 50s, carvedilol had to be held entirely. Monitor on telemetry. (3) Smoking addiction: Continue to encourage cessation. Nicotine replacement as needed. (4) Easy fatigability: As above. (5) Acute kidney injury: Creatinine noted to up to 1.4. Discussed with him to discontinue ibuprofen, avoid NSAIDs. Reassess renal function. Plan Exertional angina: As above, reports chest pain/pressure with exertion. Concerned that he may be progressing to unstable angina with possible progression of underlying CAD with multiple prior stents, at risk of life- threatening [place]. Additionally chest pain pressure if gets an episode of tachycardia. Multivessel vasculopathy: Including CAD, PAD, history of coronary and more recently carotid stents. Continue LYSSA P. Does not appear to be on statin. Will need to confirm with him why it appears he is no longer taking it. Would avoid ibuprofen. 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 HTN: Amlodipine 5 mg has been added by cardiology. Monitor blood pressures. Decreased Coreg dose. Would avoid ibuprofen. Discussed with him and his spouse. Chronic back pain COPD: Not in exacerbation History of CVA: With recent carotid artery stents, continue DAPT. Not on stat in? 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 Attestations Medical Necessity Statement*: Continue admission for post angiography care after [facility]. Diagnoses Exertional angina I20.8 Bradycardia R00.1 Smoking addiction F17.200 Easy fatigability R53.83 Acute kidney injury N17.9
[2023-04-05] MEDS: enoxaparin 40 mg/0.4 mL Syringe SUBCUT (22:37)
[2023-04-06] VITALS (59 sets, daily range): BP systolic 123–191; BP diastolic 46–69; PULSE 48–61; RESP 14–21; TEMP 36.6–36.7; O2SAT 88–97
[2023-04-06 03:11] LABS: Basophils % 0.4 %; Eosinophils # 0.4 10^3/uL (0.0-0.8); Eosinophils % 4.5 %; Hemoglobin 12.8 g/dL (11.7-16.6); Lymphocytes # 1.4 10^3/uL (0.8-4.8); Lymphocytes % 16.7 %; Mean Corpuscular HGB Conc 32.8 g/dL (30.0-36.0); Mean Corpuscular Hemoglobin 29.4 pg (28.0-34.0); Mean Corpuscular Volume 89.7 fl (80-94); Mean Platelet Volume 9.9 fL (7.4-10.4); Monocytes # 0.8 10^3/uL (0.2-0.9); Monocytes % 8.8 %; Neutrophils # 5.89 10^3/uL (1.8-7.7); Neutrophils % 69.2 %; Nucleated Red Blood Cells % 0 %; Platelet Count 160 10^3/cmm (130-400); Red Blood Count 4.35 10^6/uL (4.1-5.3); Red Cell Distribution Width 13.5 % (12.1-15.1); White Blood Count 8.5 10^3/uL (4.0-10.0)
[2023-04-06 03:33] LABS: Anion Gap 12.1 (5-19); Blood Urea Nitrogen 28 mg/dL (8-23); Calcium 8.4 mg/dL (8.5-10.5); Carbon Dioxide 25 mmol/L (22-29); Chloride 105 mmol/L (98-107); Glucose 126 mg/dL (65-115); Osmolality Calculated 293 mOsm/kg (285-295); Potassium 4.1 mmol/L (3.5-5.1); Sodium 138 mmol/L (136-145)
[2023-04-06] MEDS: clopidogrel 75 mg Tablet PO (06:00)
[2023-04-06] MEDS: PARoxetine 20 mg Tablet 10 MG PO (06:00)
[2023-04-06] MEDS: aspirin 81 mg EC Tablet PO (06:00)
[2023-04-06] MEDS: pantoprazole DR 40 mg Tablet PO (06:00)
[2023-04-06 06:07] LABS: Glucose Point of Care 157 mg/dL (70-110)
--- NOTE | 2023-04-06 08:21 | P.PN_ITS ---
Subjective Subjective: s/p C yesterday that showed critical in-stent restenosis of OM 1 stent.? He underwent successful revascularization with balloon angioplasty.? Balloon angioplasty of smaller caliber mid to distal left circumflex artery was also performed.? He feels well and denies any complaints. Medications: Reviewed: Yes Vitals/I&O/Wt Last Vital Signs Temp 98 F 04/06/23 08:08 Pulse 54 L 04/06/23 08:08 Resp 16 04/06/23 08:08 BP 191/64 04/06/23 08:08 Pulse Ox 96 04/06/23 08:08 O2 Del Method Room Air 04/06/23 08:08 04/05/23 04/06/23 04/06/23 22:59 06:59 14:59 Intake Total 1000 / 1240 Output Total 300 / 775 Balance 700 / 465 Physical Exam 2 Const: COMMON NORMALS: no acute distress, patient oriented x3 and alert GENERAL APPEARANCE: cooperative, comfortable, well kempt and well hydrated HENMT: COMMON NORMALS: hearing grossly normal bilaterally and external ears normal FACE & SINUS: normal facial exam NOSE: Normal septum present EXTERNAL EAR: Yes external ears normal Eye: COMMON NORMALS: EOMs intact bilaterally and no scleral icterus GENERAL EYE: appearance normal, both eyes and all related structures ALIGNMENT: Yes alignment normal Neck/C-Spine: COMMON NORMALS: no lymphadenopathy, supple and no JVD GENERAL: Yes normal visual inspection and Yes trachea midline CAROTIDS: Yes normal carotid upstroke Lymph: LYMPHATIC: no lymphadenopathy noted Chest: COMMONS NORMALS: normal inspection of the chest and normal palpation of entire chest wall CHEST: Yes Symmetrical chest wall rise and No tenderness Resp: COMMON NORMALS: clear to auscultation bilaterally EFFORT & INSPECTION: Yes able to speak in complete sentences, No tachypneic, No respiratory distress, No pursed lip breathing, No labored and No Actively coughing AUSCULTATION: clear to auscultation bilaterally, no crackles, no rales, no rhonchi and no wheezes Cardio: COMMON NORMALS: no JVD, regular rate, regular rhythm, S1 normal heart sound present, S2 normal heart sound present and Peripheral pulses 2+ throughout PALPATION: normal PMI RATE: regular rate and bradycardic RHYTHM: regular rhythm and abnormal rhythm with ectopic beats HEART SOUNDS: S1 normal heart sound present, S2 normal heart sound present, no click, no gallops and no murmurs BRUITS: no carotid bruits PERIPHERAL PULSES: Peripheral pulses 2+ throughout, radial pulses present, posterior tibial pulses present and dorsalis pedis present GI: COMMON NORMALS: Soft to palpation AUSCULTATION: Yes normoactive bowel sounds PALPATION: Yes Soft to palpation, No Tenderness to palpation present (GI), No Guarding due to palpation present (GI) and No Rigid due to palpation PERCUSSION: tympanic to percussion OTHER: mid line scar of previous sx Extremity: NARRATIVE EXTREMITY EXAM: Right groin with no significant bruising or hematoma. good peripheral pulses GENERAL: No clubbing, No cyanosis, No edema and No pallor Neuro: COMMON NORMALS: patient oriented x3, CN's II-XII intact bilaterally, moves all extremities and no focal motor deficits SENSORIUM/ORIENTATION: Yes alert Psych: COMMON NORMALS: Normal thought process present and speech normal APPEARANCE: Yes well kempt SPEECH: Yes normal speech MOOD & AFFECT: Yes euthymic mood THOUGHT PROCESS: Normal thought process present THOUGHT CONTENT: Yes Normal thought content present Data 04/06/23 02:56 04/06/23 02:56 A&P Assessment and plan (1) Exertional angina: exertional angina and SOB with tiredness associated with bradycardia and intermittent tachycardia with HR in 130's. -this is similar to previous situation when he had stents. -progressively worsening over last month -concern for unstable angina He has had previous normal stress tests and then needing stents. He is reluctant to undergo stress test -continue DAPT, statin - s/p LHC with balloon angioplasty of critical in-stent restenosis of OM 1 stent and of mid to distal LCx lesion -f/u in 1 -2 weeks with Zehra -f/u in 3 months with me. (2) Bradycardia: -off coreg, continue to monitor on telemetry frequent PVC's noted. (3) Coronary artery disease: Last LHC at [facility] (04/2015): High-grade lesions at the ostium and at the mid segments of the dominant left circumflex artery. Moderate distal left main disease. Nondominant right coronary artery. Normal LV ejection fraction of 60% (4) Smoker: active smoker not motivated to quit (5) Peripheral vascular disease: (6) COPD (chronic obstructive pulmonary disease): Qualifiers: COPD type: emphysema Emphysema type: centrilobular Qualified Code(s): J43.2 - Centrilobular emphysema Plan HTN: uncontrolled; add amlodipine 5 mg daily. AAA s/p repair: Last CTA abdomen/pelvis with Infrarenal RIGHT aortic stent with additional RIGHT external iliac stent. Prior RIGHT occluded iliac graft. Normal caliber abdominal aorta. No evidence of enlarging aortic aneurysm. Removal of pr eviously described aortic endograft and LEFT iliac component. Excluded aneurysm sac measures 1.5 x 2.5 cm AP by transverse in maximum dimension today. Carotid artrey disease s/p b/l stents h/o CVA JUDY Attestations Medical Necessity Statement*: stable to be discharged from cardiac standoint. Coding Level of Care Code Acute Code for [facility] Diagnoses Exertional angina I20.8 Bradycardia R00.1 Coronary artery disease I25.10 Smoker F17.200 Peripheral vascular disease I73.9 COPD (chronic obstructive pulmonary disease) J43.2 COPD type: emphysema Emphysema type: centrilobular
--- NOTE | 2023-04-06 08:41 | PC.NURSE ---
Patient complains of food. Very upset with quality of food being served to patients.
[2023-04-06] MEDS: amlodipine 5 mg Tablet PO (08:43)
--- NOTE | 2023-04-06 10:45 | PC.CHAP ---
Pastoral Care Encounter/Spiritual Assessment Type of Contact [x] Declined welder gas visit [] Patient/Family/Request visit [] Outpatient visit [] Follow-up visit [] Physician referral [] Code/Alert [] Routine visit [] Staff referral [] Actively dying [] Patient sleeping [] Family support [] [] Out of room [] Palliative care [] [] Receiving care in room [] Pre-surgical visit [] Trauma [] Long length of stay [] ICU visit [] Other: Relational/Emotional Strength [] Patient feels connected with others/family/visitors/staff [] Distress [] Loneliness/isolation [] Abandonment Spirituality of Patient [] Person of Tere [] Attends Congregational of their Tere [] Believes in Prayer [] Reads Bible or Caodaism materials [] There are Spiritual issues to be addressed [employer]ant Interventions [] Prayer [] Active listening [] Non-anxious presence [] Spiritual/emotional support [] Crisis/trauma care [] Spiritual counseling [] Bereavement support [] Provided bereavement packet [] Provided Bible/devotional materials [] Provided toy/stuffed animal, coloring book to patient or family member [] Provided Communion [] Anointing/[place] [] Salvation [] Completed spiritual assessment [] Other: Impact on Illness or Injury [] Angry [] Fearful [] Anxious [] Often cries [] Exhaustion [] Unable to work [] Unable to attend sikh [] Unable to walk/stand [] Unable to read [] Unable to drive [] Unable to eat/drink [] Unable to sleep [] Unable to be with family [] Patient intubated [] Other: Summary Declined welder gas visit Time spent with patient 5 mins
--- NOTE | 2023-04-06 11:42 | PC.NURSE ---
Patient received DC orders, All IVs removed, prescriptions sent to preferred pharmacy. All personal belongings sent with patient. Patient will exit to main entrance via w/s with nurse tech.
--- NOTE | 2023-04-06 13:41 | PM.DCS ---
Discharge Providers Date of Admission: 04/05/23 13:19 Date of Discharge: April 06, 2023 Attending Provider at Admission: Andrea Weiss Attending Provider at Discharge: Andrea Weiss Primary Care Provider: Ra Orozco MD Diagnoses at Discharge Discharge Diagnosis (1) Exertional angina: Status: Acute (2) Bradycardia: Status: Acute (3) Coronary artery disease: Status: Acute (4) Smoker: Status: Acute (5) Peripheral vascular disease: Status: Acute (6) COPD (chronic obstructive pulmonary disease): Status: Acute Qualifiers: COPD type: emphysema Emphysema type: centrilobular Qualified Code(s): J43.2 - Centrilobular emphysema Other Information Additional DC diagnoses/information: Exertional angina: S/p PCI Multivessel vasculopathy: Including CAD, PAD, history of coronary and more recently carotid stents.? Continue LYSSA P.? Does not appear to be on statin.? Will need to confirm with him why it appears he is no longer taking it.? Would avoid ibuprofen. HTN: Amlodipine 5 mg has been added by cardiology.? Monitor blood pressures.? Stop Coreg. Chronic back pain COPD: Not in exacerbation History of CVA: With recent carotid artery stents, continue DAPT.? Not on statin? GERD HLD Lung nodules Prostate cancer RLS Reason for Visit Reason for Visit: general weakness, wobbly, weakness in right leg Brief History: 78-year-old gentleman came into ER for assessment due to progressive now severe exertional intolerance, getting quite fatigued and also with chest pain pressure with exertion.? Denies chest pain or pressure at rest.? In ER heart rates noted somewhat lower than usual, he is on Coreg for his blood pressure, low previously heart rates were in the 50s, currently going into the 40s.? Orthostatics negative.? He has noticed his blood pressure running on the higher side especially with lower heart rates.? He denies any CHF symptoms.? 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 He states he feels that he might have a blockage in his coronary arteries. There is no suggestion of infection, he is afebrile, without leukocytosis, no SIRS criteria.? Chest x-ray unremarkable. Magnesium and potassium noted WNL, TSH normal. Hospital Course Hospital Course He was admitted to cardiac stepdown unit with cardiac monitoring. Current troponin EKG series were completed. Noted moderate troponin abnormality without peak. However, given recent progressive symptoms concern for possible unstable angina was additionally assessed by cardiology. TTE was obtained and showed normal ejection fraction, no regional wall motion abnormality. Normal diastolic function. He remained bradycardic. Carvedilol dose initially was cut down to 3.125, however, still with bradycardia had to be discontinued entirely. During hospitalization with noted JUDY on CKD creatinine as high as 1.6, but improved down to 1.4. He is asked to discontinue ibuprofen and avoid NSAIDs entirely. He underwent additional assessment by coronary angiography with finding of moderate left main artery stenosis, on IVUS it was not severe. There was critical in-stent restenosis of OM branch stent. He underwent successful revascularization with balloon angioplasty. He had also had balloon angioplasty of mid to distal left circumflex artery. No new stents were placed. He is highly encouraged to stop smoking, he declines nicotine supplements or other help. He states that he had success with Chantix in the past but does not want to return to that medication for fear of complication of stroke. States that he will quit cold turkey . He additionally was encouraged not to at any point discontinue his medications unless due to complication and with medical assessment/supervision. He had stopped taking all his medicines including aspirin Plavix for about a month several months ago and states that he felt well until he resumed his medicines due to concerns by his at which point he started feeling unwell. Discussed with him importance to continue aspirin Plavix without stopping due to his multiple stents and risk of closure and severe complications. Encouraged him to seek medical attention immediately in case of any suspected complications or any concerning symptoms. For hypertension he was started on amlodipine and is continued with carvedilol discontinued at discharge due to bradycardia. He additionally has atorvastatin at home but has discontinued in the past as he thought it was contributing to him feeling unwell. He has 20 mg tablets and on discussion with him and his regarding risk and benefit he states he is going to try to resume the atorvastatin 20 mg and follow-up with primary provider for reassessment. Discussed consideration of alternative statin, however, he wants to try going back to atorvastatin first. He is doing well today, he is eager to discharge home as he is feeling much better. He has ambulated in the hallway without any issues. Blood pressure somewhat elevated this morning after IV fluid hydration after angiogram, but with improvement after his morning medications, blood pressure down to 182/69. Please continue optimization of cardiovascular risk factors, follow-up on CAD, optimization of hypertension control, adherence with medical treatments, and follow-up on chronic issues. Physical Exam Const: COMMON NORMALS: patient oriented x3 and alert GENERAL APPEARANCE: cooperative ORIENTATION/CONSCIOUSNESS: Yes awake HENMT: COMMON NORMALS: oropharynx normal Neck/C-Spine: COMMON NORMALS: no JVD Resp: COMMON NORMALS: normal respiratory effort and clear to auscultation bilaterally AUSCULTATION: clear to auscultation bilaterally Cardio: COMMON NORMALS: no JVD, regular rhythm, S1 normal heart sound present, S2 normal heart sound present and No murmurs present (Cardio) RHYTHM: regular rhythm HEART SOUNDS: S1 normal heart sound present and S2 normal heart sound present GI: COMMON NORMALS: Normal to inspection, nondistended, normoactive bowel sounds present, Soft to palpation and non-tender PALPATION: Yes Soft to palpation Extremity: COMMON NORMALS: no joint enlargement and no pedal edema OTHER: No swelling or bruising, clean dressing right groin, no pulsatile mass, bruising or bleeding. Neuro: COMMON NORMALS: patient oriented x3 and moves all extremities SENSORIUM/ORIENTATION: Yes alert Skin: COMMON NORMALS: no rashes or lesions noted GENERAL SKIN EXAM: no rashes or lesions noted Discharge Data Studies Completed and Pending Completed Studies During Hospitalization Category Date Time Status CT head wo con* [id number] Stat Cat Scan 04/03/23 13:49 Completed [employer] request for service Routine Exams 04/05/23 05:53 Completed XR chest 1V portable [id number] Stat Exams 04/03/23 13:38 Completed NM pul vent and perfus* [id number] Routine Nuc Med 04/05/23 11:36 [place] [id number] Routine Ultrasound 04/04/23 20:40 Completed CV. echo complete* [id number] Routine Ultrasound 04/03/23 17:30 Completed Radiology Impressions Chest X-Ray 04/03/23 13:38 IMPRESSION: Unremarkable frontal portable chest x-ray. Head CT 04/03/23 13:49 IMPRESSION: 1. No acute intracranial hemorrhage, mass effect or midline shift. 2. Areas of chronic encephalomalacia in the frontal lobe and in the ganglia capsular regions bilaterally. 3. Involutional changes of the brain in keeping with the patient's age, with findings of chronic microvascular ischemic disease. 4. Left mastoid effusion. Pulmonary Perfusion Imaging 04/05/23 11:36 IMPRESSION: Low probability. Laboratory Results WBC 8.5 10^3/uL (4.0-10.0) 04/06/23 02:56 RBC 4.35 10^6/uL (4.1-5.3) 04/06/23 02:56 Hgb 12.8 g/dL (11.7-16.6) 04/06/23 02:56 Hct 39.0 % (42.0-52.0) L 04/06/23 02:56 MCV 89.7 fl (80-94) 04/06/23 02:56 MCH 29.4 pg (28.0-34.0) 04/06/23 02:56 MCHC 32.8 g/dL (30.0-36.0) 04/06/23 02:56 RDW 13.5 % (12.1-15.1) 04/06/23 02:56 Plt Count 160 10^3/cmm (130-400) 04/06/23 02:56 MPV 9.9 fL (7.4-10.4) 04/06/23 02:56 Neut % (Auto) 69.2 % 04/06/23 02:56 Lymph % (Auto) 16.7 % 04/06/23 02:56 [place] % (Auto) 8.8 % 04/06/23 02:56 Eos % (Auto) 4.5 % 04/06/23 02:56 Baso % (Auto) 0.4 % 04/06/23 02:56 Neut # (Auto) 5.89 10^3/uL (1.8-7.7) 04/06/23 02:56 Lymph # (Auto) 1.4 10^3/uL (0.8-4.8) 04/06/23 02:56 [place] # (Auto) 0.8 10^3/uL (0.2-0.9) 04/06/23 02:56 Eos # (Auto) 0.4 10^3/uL (0.0-0.8) 04/06/23 02:56 Baso # (Auto) 0.0 10^3/uL (0.0-0.1) 04/06/23 02:56 Nucleated RBC % (auto) 0 % 04/06/23 02:56 Nucleated RBCs # 0.0 /100WBC 04/06/23 02:56 APTT 40.3 SECONDS (23.9-36.7) H 04/05/23 14:10 D-Dimer 1.05 ug/mIFEU (0-0.59) H 04/03/23 14:04 Sodium 138 mmol/L (136-145) 04/06/23 02:56 Potassium 4.1 mmol/L (3.5-5.1) 04/06/23 02:56 Chloride 105 mmol/L (98-107) 04/06/23 02:56 Carbon Dioxide 25 mmol/L (22-29) 04/06/23 02:56 Anion Gap 12.1 (5-19) 04/06/23 02:56 BUN 28 mg/dL (8-23) H 04/06/23 02:56 Creatinine 1.4 mg/dL (0.7-1.2) H 04/06/23 02:56 GFR Calculation Not Reportable 04/06/23 02:56 Glucose 126 mg/dL (65-115) H 04/06/23 02:56 POC Glucose 157 mg/dL (70-110) H 04/06/23 05:59 Calculated Osmolality 293 mOsm/kg (285-295) 04/06/23 02:56 Calcium 8.4 mg/dL (8.5-10.5) L 04/06/23 02:56 Magnesium 2.1 mg/dL (1.7-2.3) 04/03/23 14:04 Total Bilirubin 0.2 mg/dL (0.15-1.2) 04/03/23 14:04 AST 18 U/L (0-40) 04/03/23 14:04 ALT 17 U/L (0-41) 04/03/23 14:04 Alkaline Phosphatase 122 U/L (40-130) 04/03/23 14:04 Troponin T Baseline 91 ng/L (0-15) H 04/03/23 14:04 Troponin T 120 Minute 83.08 ng/L (0-15) H 04/03/23 16:14 Delta Troponin T -7.92 ABS# (0-10) L 04/03/23 16:14 Troponin T Hi Sens 6Hr 69.61 ng/L (0-15) H 04/03/23 20:06 Troponin T Hi Sens 6Hr Delta -21.39 ng/L (0-12) L 04/03/23 20:06 NT-Pro-B Natriuret Pep 626 pg/mL (0-450) H 04/03/23 14:04 Total Protein 7.8 g/dL (6.6-8.7) 04/03/23 14:04 Albumin 4.8 g/dL (3.5-5.2) 04/03/23 14:04 Globulin 3.0 g/dL (1.3-4.6) 04/03/23 14:04 TSH 2.30 uIU/mL (0.27-4.20) 04/03/23 14:04 Urine Color Colorless (Yellow) 04/03/23 14:50 Urine Appearance Clear (CLEAR) 04/03/23 14:50 Urine pH 6 (5-7) 04/03/23 14:50 Ur Specific [place] 1.010 (1.005-1.030) 04/03/23 14:50 Urine Protein Neg (Negative) 04/03/23 14:50 Urine Glucose (UA) Norm (Normal) 04/03/23 14:50 Urine Ketones Negative (Negative) 04/03/23 14:50 Urine Blood Neg (Negative) 04/03/23 14:50 Urine Nitrate Negative (Negative) 04/03/23 14:50 Urine Bilirubin Neg (Negative) 04/03/23 14:50 Urine Urobilinogen Norm mg/dL (Negative) 04/03/23 14:50 Ur Leukocyte Esterase Negative (Negative) 04/03/23 14:50 Coronavirus 229E (PCR) Not detected (NOT DETECT) 04/03/23 15:00 SARS-CoV-2 (PCR) Not detected (NOT DETECT) 04/03/23 15:00 Vitals Last Vital Signs Temp 98.1 F 04/06/23 11:36 Pulse 59 L 04/06/23 11:36 Resp 18 04/06/23 11:36 BP 182/69 04/06/23 11:36 Pulse Ox 95 04/06/23 11:36 O2 Del Method Room Air 04/06/23 11:36 Discharge Plan Discharge Patient Disposition: Home Condition: Stable Prescriptions: New nicotine 14 mg/24 hr Patch 24 Hour 1 patch transdermal DAILY Qty: 30 0RF amlodipine 5 mg Tablet 5 mg PO DAILY Qty: 90 1RF nicotine (polacrilex) 4 mg Lozenge 4 mg mucous membrane Q2H PRN (Reason: Nicotine Cravings) Qty: 180 3RF Continued Bevespi Aerosphere 9-4.8 mcg HFA aerosol inhaler 2 puff inhalation BID Qty: 10.7 5RF gabapentin 600 mg tablet 600 mg PO BEDTIME paroxetine HCl 10 mg tablet 10 mg PO QAM tizanidine 4 mg tablet 4 mg PO BEDTIME clopidogrel 75 mg tablet 75 mg PO QAM omeprazole 20 mg capsule,delayed release(DR/EC) 20 mg PO QAM multivitamin Tablet 1 tab PO QAM aspirin 81 mg Tablet,Delayed Release (Dr/Ec) 81 mg PO QAM allopurinol 100 mg tablet 100 mg PO QPM nitroglycerin 0.4 mg Tablet, Sublingual 0.4 mg SUBLINGUAL Q5M PRN (Reason: Chest Pain) Rx Instructions: do not exceed 3 doses per episode Discontinued ibuprofen 200 mg Tablet 800 mg PO BEDTIME PRN (Reason: Pain) carvedilol 12.5 mg tablet 12.5 mg PO BID Discharge Orders: Discharge Order (Routine); Ordered 04/06/23 Ordered By: Andrea Weiss Referrals: Zehra Valentin FNP [Nurse Practitioner] - 04/20/23 3:15 pm Isabella Forman MD [Physician] - Discharge Diet: Cardiac Discharge Activity: Increase activity as tolerated and Limit activity as instructed Patient Instructions: Amlodipine (By mouth), Angina (DC), Coronary Artery Disease (DC), Coronary Angioplasty (DC), How to Stop Smoking (GEN), Cigarette Smoking and Your Health (GEN), Bradycardia (DC), Hypertension (GEN), Opioid Safety, Post Angiogram Home Care Instructions Activity Restrictions/Additional Instructions: Please stop smoking. Continue smoking risks progression of coronary disease, as well as risk of stroke, cancer and other complications. Please do not stop your medications unless there is a serious complication or you are directed to do so by your doctor. Particularly please make sure to continue taking aspirin and Plavix as stopping these medications can lead to closure of the stents and risk of CT and/or stroke or both. Please follow-up with your primary doctor for assessment of your kidney function and follow-up on currently disease. Please follow-up with your primary doctor and cardiology to continue optimize risk factors of coronary artery disease. Monitor blood pressure at home, please do not resume carvedilol due to slow heart rate. You are started on amlodipine. Please continue cardiac diet. If your kidney function remains steady on reassessment, consider with your primary doctor and/your vascular technologist sonographer addition of KWESI inhibitor or ARB. Please do not take ibuprofen or other NSAIDs due to associated risks including risk of heart attack and stroke and risks to your kidneys. As per discussion attempting to restart atorvastatin resumed at 20 mg, follow-up with your primary doctor to reassess how you are feeling. In case not tolerating consider alternative statin like simvastatin. In case you notice any pulsatile swelling, bleeding, experience pain in the right groin, or notice any numbness or weakness in the right leg, please seek medical attention without delay. Similarly return in case you are experiencing chest pain or pressure, shortness of breath, feeling faint, or any other concerning symptoms. Avoid lifting more than 3 pounds for 2 days. Discharge Attestations Time Spent in Discharge Care*: greater than 30 min Time Spent in Smoking Cessation: 10 min Status at Discharge: Cognitive status at discharge: cognitively intact, Behavioral status at discharge: cooperative, Functional status at discharge: independent ambulation, Overall status at discharge: patient is back to baseline Quality Metrics Clinical Quality Measures [ Acute Myocardial Infaction { Clinical Trial Participant: No; Contraindication to aspirin: None; Aspirin prescribed; Contraindication to statin: None; Statin prescribed; Contraindication to PCI: None; PCI performed;}] Coding Level of Care Code 16037 Total time (in minutes) for Discharge: 50 Diagnoses Exertional angina I20.8 Bradycardia R00.1 Coronary artery disease I25.10 Smoker F17.200 Peripheral vascular disease I73.9 COPD (chronic obstructive pulmonary disease) J43.2 COPD type: emphysema Emphysema type: centrilobular
== END 2023-04-06 11:45 | disposition home or self-care (01) | DRG 251 ==
LOC: ER 16:28 → CSU 17:02
PROVIDERS: Internal Medicine; Admitting Provider Internal Medicine; Emergency Provider Emergency Medicine; PCP Internal Medicine; Visit Provider Internal Medicine
PROC: 02713ZZ Dilation of Coronary Artery, Two Arteries, Percutaneous Approach (ICD-10-PCS; principal; 2023-04-05 09:50)
PROC: 02713ZZ Dilation of Coronary Artery, Two Arteries, Percutaneous Approach (ICD-10-PCS; 2023-04-05 09:50)
DX: T82.855A Stenosis of coronary artery stent, initial encounter (principal); I25.110 Atherosclerotic heart disease of native coronary artery with unstable angina pectoris; N17.9 Acute kidney failure, unspecified; Y71.8 Miscellaneous cardiovascular devices associated with adverse incidents, not elsewhere classified; F17.210 Nicotine dependence, cigarettes, uncomplicated; I73.9 Peripheral vascular disease, unspecified; J43.2 Centrilobular emphysema; I10 Essential (primary) hypertension; G89.29 Other chronic pain; Z86.73 Personal history of transient ischemic attack (TIA), and cerebral infarction without residual deficits; K21.9 Gastro-esophageal reflux disease without esophagitis; E78.5 Hyperlipidemia, unspecified; C61 Malignant neoplasm of prostate; G25.81 Restless legs syndrome; Z91.128 Patient's intentional underdosing of medication regimen for other reason; Z79.02 Long term (current) use of antithrombotics/antiplatelets; Z79.82 Long term (current) use of aspirin
CPT/HCPCS: 36415; 36416; 70450; 71045; 78014; 80048; 80053; 81003; 82962; 83735; 83880; 84443; 84484; 85025; 85347; 85378; 85730; 87635; 92920; 92978; 93005; 93306; 93458; 93970; 96372; 96374; 96376; 99152; 99153; 99285; A9540; A9567; C1725; C1753; C1769; C1887; C1894; G0378; J0360; J1644; J1650; J2250; J3010; J7030; Q9967

== ENCOUNTER → 2023-04-14 09:13 | Outpatient (BNVA) | payer MEDICARE, OTHER, SELFPAY | PROVIDERS: PCP Internal Medicine; Visit Provider Internal Medicine Cardiovascular Disease | DX: I25.10 Atherosclerotic heart disease of native coronary artery without angina pectoris (principal); R00.1 Bradycardia, unspecified; I10 Essential (primary) hypertension; I73.9 Peripheral vascular disease, unspecified; J43.2 Centrilobular emphysema; Z86.73 Personal history of transient ischemic attack (TIA), and cerebral infarction without residual deficits; F17.210 Nicotine dependence, cigarettes, uncomplicated | CPT/HCPCS: 99214 ==

== ENCOUNTER → 2023-08-03 08:26 | Outpatient (BNVA) | payer MEDICARE, OTHER, SELFPAY | PROVIDERS: PCP Internal Medicine; Visit Provider Podiatrist Foot & Ankle Surgery | DX: I48.91 Unspecified atrial fibrillation (principal); M19.071 Primary osteoarthritis, right ankle and foot; G62.9 Polyneuropathy, unspecified; I10 Essential (primary) hypertension; M10.9 Gout, unspecified; R00.1 Bradycardia, unspecified; I25.10 Atherosclerotic heart disease of native coronary artery without angina pectoris; Z86.73 Personal history of transient ischemic attack (TIA), and cerebral infarction without residual deficits; I73.9 Peripheral vascular disease, unspecified; J43.2 Centrilobular emphysema; F17.210 Nicotine dependence, cigarettes, uncomplicated | CPT/HCPCS: 73610; 73630; 99203; 99214 ==

== ENCOUNTER 2023-10-19 08:20 | Outpatient (CLI) | payer MEDICARE, OTHER, SELFPAY ==
--- NOTE | 2023-10-19 08:23 | US_ITS ---
WS: [id number] US pelvic limited [id number] HISTORY: R GROIN PAIN, 78-year-old male. COMPARISON: None available. Ultrasound is directed to the RIGHT groin in the area of pain. No mass or adenopathy is identified. D uring Valsalva there does appear to be a small hernia which appears to be fat. There is no peristalsi s. IMPRESSION: Possible small omental hernia along the RIGHT groin in the area of pain. There is no peristalsis or b owel identified within the groin. This can be further evaluated by CT if clinically thought necessary .
== END 2023-10-19 08:21 | disposition home or self-care (01) ==
LOC: RAD 08:21
PROVIDERS: PCP Internal Medicine; Visit Provider Nurse Practitioner Family
DX: R10.31 Right lower quadrant pain (principal)
CPT/HCPCS: 76857